=== PATIENT | female | born 1985 | race Caucasian/White ===

== ENCOUNTER 2018-09-05 16:43 | Outpatient (REF) | payer MEDICARE, MEDICAID, SELFPAY ==
[2018-09-05 21:43] LABS: HCG Quant, Pregnancy < 1 mIU/mL (1-3)
[2018-09-07 12:43] LABS: Chlamydia Result Negative; GC Result Negative; Specimen Description URINE
== END 2018-09-05 17:03 ==
LOC: NCHCN 16:43
PROVIDERS: PCP Family Medicine; Visit Provider Registered Nurse
DX: N92.0 Excessive and frequent menstruation with regular cycle (principal); R10.2 Pelvic and perineal pain; N93.9 Abnormal uterine and vaginal bleeding, unspecified; Z11.3 Encounter for screening for infections with a predominantly sexual mode of transmission
CPT/HCPCS: 87491; 87591; 84702

== ENCOUNTER 2019-05-27 15:26 | Outpatient (REF) | payer MEDICARE, MEDICAID, SELFPAY ==
[2019-05-27 21:17] LABS: ALT 37 U/L (12-78); AST 44 U/L (15-37); Albumin 3.7 g/dL (3.4-5.0); Alkaline Phosphatase 50 U/L (46-116); Anion Gap 10.9 mmol/L (3-11); BUN 9 mg/dL (7-18); Bilirubin, Total 0.3 mg/dL (0.2-1.0); CO2 27.1 mmol/L (21.0-32.0); CREATININE 0.64 mg/dL (0.55-1.02); Calcium 8.8 mg/dL (8.5-10.1); Chloride 103 mmol/L (98-107); Glucose 166 mg/dL (70-100); Potassium 4.2 mmol/L (3.5-5.1); Sodium 141 mmol/L (136-145); Total Protein 7.2 g/dL (6.4-8.2)
[2019-05-27 21:35] LABS: COMMENT (LAB VIEW ONLY) 231.15 mg/dL; Microalb ug/mg Crea 6.7 ug/mg Cr
== END 2019-05-27 15:46 ==
LOC: NCHCN 15:26
PROVIDERS: PCP Family Medicine; Visit Provider Registered Nurse
DX: E11.9 Type 2 diabetes mellitus without complications (principal); F31.9 Bipolar disorder, unspecified
CPT/HCPCS: 80053; 82043; 82570

== ENCOUNTER 2023-02-14 15:13 | Outpatient (REF) | payer MEDICARE, MEDICAID, SELFPAY ==
[2023-02-13 22:39] LABS: ALT 84 U/L (14-59); AST 47 U/L (15-37); Alkaline Phosphatase 62 U/L (46-116); Anion Gap 7.4 mmol/L (3-11); BUN 15 mg/dL (7-18); Bilirubin, Total 0.4 mg/dL (0.2-1.0); CO2 29.6 mmol/L (21.0-32.0); CREATININE 0.8 mg/dL (0.55-1.02); Calcium 9.5 mg/dL (8.5-10.1); Chloride 101 mmol/L (98-107); Cholesterol 233 mg/dL (<200); Estimated GFR 96.66 (mL/min/1.73m2); Glucose 191 mg/dL (74-106); HDL Cholesterol 42 mg/dL (40-60); Potassium 3.9 mmol/L (3.5-5.1); Sodium 138 mmol/L (136-145); Total Protein 7.9 g/dL (6.4-8.2); Triglyceride 452 mg/dL (<150)
[2023-02-13 22:41] LABS: COMMENT (LAB VIEW ONLY) 273.01 mg/dL; Microalb ug/mg Crea 9.2 ug/mg Cr
[2023-02-13 22:49] LABS: LDL CHOLESTEROL 127 mg/dL (<100)
== END 2023-02-14 15:14 | disposition home or self-care (01) ==
LOC: NCHCN 15:13
PROVIDERS: PCP Family Medicine; Visit Provider Nurse Practitioner Family
DX: E11.9 Type 2 diabetes mellitus without complications (principal); E66.9 Obesity, unspecified
CPT/HCPCS: 80053; 80061; 83721; 82043; 82570

== ENCOUNTER 2023-06-23 11:48 | Outpatient (REF) | payer MEDICARE, MEDICAID, SELFPAY ==
[2023-06-23 21:22] LABS: Anion Gap 11.6 mmol/L (3-11); BUN 11 mg/dL (7-18); CO2 25.4 mmol/L (21.0-32.0); CREATININE 0.9 mg/dL (0.55-1.02); Calcium 9.3 mg/dL (8.5-10.1); Chloride 101 mmol/L (98-107); Estimated GFR 83.92 (mL/min/1.73m2); Glucose 227 mg/dL (74-106); Potassium 3.5 mmol/L (3.5-5.1); Sodium 138 mmol/L (136-145)
== END 2023-06-23 11:49 | disposition home or self-care (01) ==
LOC: NCHCN 11:48
PROVIDERS: PCP Family Medicine; Visit Provider Nurse Practitioner Family
DX: E11.9 Type 2 diabetes mellitus without complications (principal); I10 Essential (primary) hypertension
CPT/HCPCS: 80048

== ENCOUNTER 2024-02-20 10:04 | Outpatient (REF) | payer MEDICARE, MEDICAID, SELFPAY ==
[2024-02-20 14:59] LABS: Hemoglobin A1C 5.9 % (<5.7)
[2024-02-20 15:55] LABS: COMMENT (LAB VIEW ONLY) 435.87 mg/dL; Microalb ug/mg Crea 7.2 ug/mg Cr
== END 2024-02-20 10:05 | disposition home or self-care (01) ==
LOC: NCHCN 10:04
PROVIDERS: PCP Family Medicine; Visit Provider Nurse Practitioner Family
DX: I10 Essential (primary) hypertension (principal)
CPT/HCPCS: 82043; 82570; 83036

== ENCOUNTER 2024-08-20 16:02 | Outpatient (REF) | payer MEDICARE, MEDICAID, SELFPAY ==
[2024-08-20 15:40] LABS: ALT 32 U/L (14-59); AST 21 U/L (15-37); Albumin 3.4 g/dL (3.4-5.0); Alkaline Phosphatase 60 U/L (46-116); BUN 12 mg/dL (7-18); Bilirubin, Total 0.36 mg/dL (0.2-1.0); CREATININE 0.8 mg/dL (0.55-1.02); Calculated LDL 55 mg/dL (<100); Chloride 107 mmol/L (98-107); Cholesterol 146 mg/dL (<200); Estimated GFR 96.06 (mL/min/1.73m2); Glucose 139 mg/dL (74-106); HDL Cholesterol 51 mg/dL (40-60); Potassium 4.2 mmol/L (3.5-5.1); Sodium 144 mmol/L (136-145); Total Protein 6.9 g/dL (6.4-8.2); Triglyceride 200 mg/dL (<150)
--- OUTSIDE RECORDS SUMMARY | 2024-08-20 16:04 | XMS_ITS ---
Author Organization Unknown Address [address] [place] [address] [phone] Phone Care Team Providers Care Derrick Barge Operator Name Role Phone JNAETTE Guo Attending Unavailable FABI Heath Primary Unavailable Social History Type Status Start Date End Date Code Code Syst em Smoking History Never smoker (Never Smoked) 588153023 SNOMED CT Sex Female Medications Medication Start Date End Date Route Frequency Dose Code Code System Medication Instructions Home Meds OxyCONTIN 20MG Oral Tablet, Extended Release 01/18/2019 Unknown ORAL TWICE A DAY 20 MILLIGRAMS 6310484 RxNorm TAKE 20 MILLIGRAMS ORAL TWICE A DAY Gabapentin 600MG Oral Tablet 11/08/2021 Unknown TWICE A DAY 2 TABLET 681892 RxNorm 2 TABLET TWICE A DAY HYDROcodone bitartrate-gideon taminophen 5MG-325MG Oral Tablet 11/08/2021 Unknown TWICE A DAY 1 TABLET 185123 RxNorm 1 TABLET TWICE A DAY Metoprolol Succinate 25MG Oral Tablet, Extended Release 11/08/2021 Unknown TWICE A DAY 0.5 TABLET 763889 RxNorm 0.5 TABLET TWICE A DAY Tresiba FlexTouch Pen 100U/1ML Subcutaneous Solution 11/08/2021 Unknown DAILY 90 Unit(s) 5141518 RxNorm 90 Unit(s ) DAILY lamoTRIgine 100MG Oral Tablet 11/08/2021 Unknown DAILY 2 TABLET 292443 RxNorm 2 TABLET DAILY metFORMIN HCl 1000MG Oral Tablet 11/08/2021 Unknown ORAL TWICE A DAY 1000 411487 RxNorm TAKE 1000 ORAL TWICE A DAY rOPINIRole HCl 0.25MG Oral Tablet 11/08/2021 Unknown BEDTIME 2 TABLET 828937 RxNorm 2 TABLET BEDTIME Bactrim DS 800MG-160MG Oral Tablet 02/26/2023 3 ORAL TWICE A DAY 1 TABLET 577194 RxNorm TAKE 1 TABLET ORAL TWICE A DAY Assessment You had the following problems:COVID-19 PNEUMONIATYPE 2 DIABETESBIPOLAR DISORDERCHRONIC PAIN SYNDROMERESPIRATORY FAILURE WITH HYPOXIA Hospital Discharge Instructions Should you have any questions prior to discharge, please contact a member of your healthcare team. If you have left the hospital and have any questions, please contact your primary care physician. Reason For Referral No Data Found Problems Problem Start Date Resolved Date Status Code Code System COVID-19 PNEUMONIA active [id number] 0539719 SNOMED-CT TYPE 2 DIABETES active 42717903 SNOM ED-CT BIPOLAR DISORDER active 22758512 SNO MED-CT CHRONIC PAIN SYNDROME active 768437375 SNOMED-CT RESPIRATORY FAILURE WITH HYPOXIA active 755266952 SNOMED-CT DIABETES 11/05/2021 resolved 25066133 SNOMED-CT DIABETES WO COMP TYPE II UNSPEC 11/05/2021 resolved SNOMED-CT ACUTE APPENDICITIS NOS 11/05/2021 resolved SNOMED-CT Allergies and Adverse Reactions Allergy Substance Reaction Severity Start Date Concern Status Co de Code System No Known Allergies Active 523274271 SNO MED-CT Plan of Treatment US RENAL 07/28/2022 CT ABDOMEN/PELVIS W/ CONTRAST 1 Encounters Encounter Diagnosis Start Date Code Code Sys tem COVID-19 11/05/2021 SNOMED-CT Personal Care Team Section Performer Name Performer Role Active Date Inactive Da doron
--- OUTSIDE RECORDS SUMMARY | 2024-08-20 16:05 | XMS_ITS ---
Author Organization Unknown Address [address] [place] [address] [phone] Phone Care Team Providers Care Machinist Mechanic Name Role Phone AURELIANO KEATING Registered Nurse Unavailable Unavailable Xwatchlist Unavailable JANETTE Guo Attending Unavailable MARSHA Heath Primary Unavailable UNLISTED PROVIDER - REQUESTED Xhandoff Un available Results GLUCOSE FINGER/HEEL CAPILLAR Y - Collect Date/Time: 11/08/2021 12:10 [facility] ID: [id number] [address] [place], [place], [phone] LOINC: 96191-0 Test Value Unit Reference Range Code Code System Flag GLUCOSE CAP 145 mg/dL L=70 H=116 H GLUCOSE FINGER/HEEL CAPILLAR Y - Collect Date/Time: 11/08/2021 08:23 [facility] ID: [id number] [address] [place] [address], [phone] LOINC: 47280-1 Test Value Unit Reference Range Code Code System Flag GLUCOSE CAP 184 mg/dL L=70 H=116 H GLUCOSE FINGER/HEEL CAPILLAR Y - Collect Date/Time: 11/07/2021 20:23 [facility] ID: [id number] [address] [place] [address], [phone] LOINC: 90721-1 Test Value Unit Reference Range Code Code System Flag GLUCOSE CAP 134 mg/dL L=70 H=116 H GLUCOSE FINGER/HEEL CAPILLAR Y - Collect Date/Time: 11/07/2021 17:01 [facility] ID: [id number] [address] [place] [address], [phone] LOINC: 74186-2 Test Value Unit Reference Range Code Code System Flag GLUCOSE CAP 144 mg/dL L=70 H=116 H GLUCOSE FINGER/HEEL CAPILLAR Y - Collect Date/Time: 11/07/2021 12:26 [facility] ID: [id number] [address] [place] [address], [phone] LOINC: 64961-2 Test Value Unit Reference Range Code Code System Flag GLUCOSE CAP 175 mg/dL L=70 H=116 H GLUCOSE FINGER/HEEL CAPILLAR Y - Collect Date/Time: 11/07/2021 09:03 [facility] ID: [id number] [address] [place] [address], [phone] LOINC: 35965-4 Test Value Unit Reference Range Code Code System Flag GLUCOSE CAP 190 mg/dL L=70 H=116 H C REACTIVE PROTEIN HIGH SENS ITIVITY* - Collect Date/Time: 11/07/2021 06:40 [facility] ID: [id number] [address] [place] [address], [address] LOINC: 10319-1 Test Value Unit Reference Range Code Code System Flag CRP-HIGH SENS. 112.65 mg/L L=0.00 H=3.00 43880-7 LOINC H CRP-HIGH SENS 11.27 mg/dL L=0.00 H=0.30 71967-7 LOINC H BASIC METABOLIC PANEL (BMP) - Collect Date/Time: 11/07/2021 06:40 [facility] ID: [id number] [address] [place] [address], [address] LOINC: 29510-2 Test Value Unit Reference Range Code Code System Flag GLUCOSE 253 mg/dL L=70 H=116 2345-7 LOINC H BUN 13 mg/dL L=6 H=25 3094-0 LOINC CREATININE 0.64 mg/dL L=0.51 H=0.95 2160-0 [facility] SODIUM SERUM 135 mmol/L L=136 H=145 2951-2 [facility] L POTASSIUM SERUM 3.7 mmol/L L=3.4 H=5.2 2823-3 [facility] CHLORIDE SERUM 99 mmol/L L=96 H=110 2075-0 [facility] CARBON DIOXIDE (CO2) 29 mmol/L L=22 H=34 2028-9 [facility] ANION GAP 7.4 mmol/L 32920-2 [facility] CALCIUM SERUM 8.2 mg/dL L=8.2 H=10.2 38065-4 [facility] AGE 36 years eGFR (non-Afr.Amer.) 105 mL/min 34259-0 [facility] eGFR (Afr-Colombian) > 120 mL/min 39005-2 [facility] GLUCOSE FINGER/HEEL CAPILLAR Y - Collect Date/Time: 11/06/2021 20:50 [facility] ID: [id number] [address] [place] [address], [phone] LOINC: 91578-4 Test Value Unit Reference Range Code Code System Flag GLUCOSE CAP 112 mg/dL L=70 H=116 GLUCOSE FINGER/HEEL CAPILLAR Y - Collect Date/Time: 11/06/2021 16:57 [facility] ID: [id number] [address] [place] [address], [phone] LOINC: 89863-9 Test Value Unit Reference Range Code Code System Flag GLUCOSE CAP 151 mg/dL L=70 H=116 H GLUCOSE FINGER/HEEL CAPILLAR Y - Collect Date/Time: 11/06/2021 11:41 [facility] ID: [id number] [address] [place] [address], [id number] LOINC: 03057-9 Test Value Unit Reference Range Code Code System Flag GLUCOSE CAP 214 mg/dL L=70 H=116 H GLUCOSE FINGER/HEEL CAPILLAR Y - Collect Date/Time: 11/06/2021 07:45 [facility] ID: [id number] [address] [place] [address], [id number] LOINC: 58219-8 Test Value Unit Reference Range Code Code System Flag GLUCOSE CAP 258 mg/dL L=70 H=116 H C REACTIVE PROTEIN HIGH SENS ITIVITY* - Collect Date/Time: 11/05/2021 20:41 [facility] ID: [id number] [address] [place] [address], [id number] LOINC: 28328-2 Test Value Unit Reference Range Code Code System Flag CRP-HIGH SENS. 183.75 mg/L L=0.00 H=3.00 42606-8 LOINC H CRP-HIGH SENS 18.38 mg/dL L=0.00 H=0.30 69422-6 LOINC H CORRECTED CORRECTED D-DIMER - Collect Date/Time: 11/05/2021 20:41 [facility] ID: [id number] [address] [place] [address], [address] LOINC: 51848-6 Test Value Unit Reference Range Code Code System Flag D-DIMER 0.63 mg/L L=0.19 H=0.50 33503-9 LOINC H BASIC METABOLIC PANEL (BMP) - Collect Date/Time: 11/05/2021 20:41 [facility] ID: [id number] [address] [place] [address], [address] LOINC: 26816-0 Test Value Unit Reference Range Code Code System Flag GLUCOSE 208 mg/dL L=70 H=116 2345-7 LOINC H BUN 14 mg/dL L=6 H=25 3094-0 LOINC CREATININE 0.71 mg/dL L=0.51 H=0.95 2160-0 LOINC SODIUM SERUM 133 mmol/L L=136 H=145 2951-2 LOINC L POTASSIUM SERUM 3.3 mmol/L L=3.4 H=5.2 2823-3 LOINC L CHLORIDE SERUM 96 mmol/L L=96 H=110 2075-0 LOINC CARBON DIOXIDE (CO2) 28 mmol/L L=22 H=34 8-9 LOINC ANION GAP 9.0 mmol/L 15391-6 LOINC CALCIUM SERUM 8.4 mg/dL L=8.2 H=10.2 38251-8 LOINC AGE 36 years eGFR (non-Afr.Amer.) 93 mL/min 23673-6 LOINC eGFR (Afr-Colombian) 113 mL/min 58128-3 LOINC CBC W/ DIFFERENTIAL* - Colle ct Date/Time: 11/05/2021 20:41 [facility] ID: [id number] [address] [place], [place], [address] LOINC: 62702-8 Test Value Unit Reference Range Code Code System Flag WBC 5.70 th/cmm L=5.00 H=10.00 6690-2 LOINC NEUT % 77.6 % L=40.0 H=80.0 LYMPH % 16.1 % L=10.0 H=50.0 MONO % 5.6 % L=2.0 H=12.0 16857-5 LOINC EOS % 0.0 % L=0.0 H=8.0 BASO % 0.2 % L=0.0 H=3.0 IG % 0.5 % L=0.0 H=1.1 2514-8 LOINC NRBC % 0.0 % L=0.0 H=0.0 08941-3 LOINC NEUT abs count 4.4 th/cmm L=1.6 H=8.4 751-8 LOINC LYMPH abs count 0.9 th/cmm L=1.5 H=4.0 731-0 LOINC L MONO abs count 0.3 th/cmm L=0.2 H=1.0 742-7 LOINC EOS abs count 0.0 th/cmm L=0.0 H=0.5 711-2 LOINC BASO abs count 0.0 th/cmm L=0.0 H=0.2 704-7 LOINC IG abs count 0.0 th/cmm L=0.0 H=0.1 02707-0 LOINC NRBC abs count 0.0 mil/cmm L=0.0 H=0.0 88537-3 LOINC RBC 4.79 mil/cmm L=3.90 H=5.40 789-8 LOINC HEMOGLOBIN 13.8 gm/dL L=12.0 H=16.0 718-7 LOINC HEMATOCRIT 41 % L=37 H=47 4544-3 LOINC MCV 86 fL L=82 H=92 787-2 LOINC MCH 28.8 pg L=27.0 H=31.0 785-6 LOINC MCHC 33.3 % L=32.0 H=36.0 786-4 LOINC RDW-SD 45.1 fL L=39.0 H=49.0 788-0 LOINC PLATELET COUNT 163 th/cmm L=150 H=450 777-3 LOINC XR PORTABLE CHEST 1V* - Comp leted: 11/05/2021 21:46 LOINC: PORTABLE CHEST:Comparison is August 11. The lungs are not well inflated. The heart size is normal. There are patchy bilateral infiltrates, right greater than left. No effusion or pneumothorax is seen. IMPRESSION:Bilateral infiltrates, right greater than left apparently consistent with COVID pneumonia. Dictated by: CEO STEFFI AMADOR MD Transcribed by: MIGUEL 11/07/21/15:16 D Sunday, November 07, 2021 11:42:17 AM [id number] Electronically Reviewed and Signed By: STEFFI AMADOR MD 11/07/21 16:33 Copy for: [facility] HEALTH INFORMATION MGMT Social History Type Status Start Date End Date Code Code Syst em Smoking History Never smoker (Never Smoked) 909945573 SNOMED CT Sex Female Vital Signs Vital Sign Value Unit Baldwin Value Baldwin Unit Date/Time Recent/Initial? Code Code System Body Mass Index 44.53 kg/m2 11/08/2021 13:43 Most Recent 09762 -5 LOINC Body Mass Index 42.97 kg/m2 11/05/2021 20:12 Initial 49694 -5 LOINC Systolic Blood Pressure 122 mm[Hg] 11/07/2021 22:47 Most Recent 8480- 6 LOINC Diastolic Blood Pressure 82 mm[Hg] 11/07/2021 22:47 Most Recent 8462- 4 LOINC Systolic Blood Pressure 149 mm[Hg] 11/05/2021 20:12 Initial 8480- 6 LOINC Diastolic Blood Pressure 89 mm[Hg] 11/05/2021 20:12 Initial 8462- 4 LOINC Body Surface Area 2.09 m2 11/08/2021 13:43 Most Recent 3140- 1 LOINC Body Surface Area 2.06 m2 11/05/2021 20:12 Initial 3140- 1 LOINC Height 152.400 0 cm 60.00 in 11/08/2021 13:43 Most Recent 8302- 2 LOINC Height 152.400 0 cm 60.00 in 11/05/2021 20:12 Initial 8302- 2 LOINC O2 Saturation 93 % 2021 13:43 Most Recent 56731 -5 LOINC O2 Saturation 84 % 2021 20:12 Initial 91416 -5 LOINC Inhaled Oxygen Flow Rate 1.00 L/min 11/08/2021 13:00 Most Recent 3151- 8 LOINC Inhaled Oxygen Flow Rate 2.00 L/min 11/05/2021 22:06 Initial 3151- 8 LOINC Fraction of Inspired Oxygen 21 % 11/08/2021 13:43 Initial 3150- 0 LOINC Pulse 76.0 /min 11/08/2021 13:00 Most Recent 8867- 4 LOINC Pulse 117.0 /min 11/05/2021 20:12 Initial 8867- 4 LOINC Respiration 18 /min 11/08/19 22 08:44 Most Recent 9279- 1 LOINC Respiration 20 /min 11/05/19 22 20:12 Initial 9279- 1 LOINC Temperature 35.9 Angelic 96.6 F 11/07/19 22 22:47 Most Recent 8310- 5 LOINC Temperature 38.8 Angelic 101.8 F 11/05/19 22 20:12 Initial 8310- 5 LOINC Weight 103.42 kg 228.00 lbs 11/08/2021 13:43 Most Recent 65183 -7 INC Weight 99.79 kg 220.00 lbs 11/05/2021 20:12 Initial 80034 -7 [facility] Medications Medication Start Date End Date Route Frequency Dose Code Code System Medication Instructions Home Meds OxyCONTIN 20MG Oral Tablet, Extended Release 01/18/2019 Unknown ORAL TWICE A DAY 20 MILLIGRAMS 2012416 RxNorm TAKE 20 MILLIGRAMS ORAL TWICE A DAY Gabapentin 600MG Oral Tablet 11/08/2021 Unknown TWICE A DAY 2 TABLET 830796 RxNorm 2 TABLET TWICE A DAY HYDROcodone bitartrate-gideon taminophen 5MG-325MG Oral Tablet 11/08/2021 Unknown TWICE A DAY 1 TABLET 417458 RxNorm 1 TABLET TWICE A DAY Metoprolol Succinate 25MG Oral Tablet, Extended Release 11/08/2021 Unknown TWICE A DAY 0.5 TABLET 724374 RxNorm 0.5 TABLET TWICE A DAY Tresiba FlexTouch Pen 100U/1ML Subcutaneous Solution 11/08/2021 Unknown DAILY 90 Unit(s) 4923003 RxNorm 90 Unit(s ) DAILY lamoTRIgine 100MG Oral Tablet 11/08/2021 Unknown DAILY 2 TABLET 575097 RxNorm 2 TABLET DAILY metFORMIN HCl 1000MG Oral Tablet 11/08/2021 Unknown ORAL TWICE A DAY 1000 137229 RxNorm TAKE 1000 ORAL TWICE A DAY rOPINIRole HCl 0.25MG Oral Tablet 11/08/2021 Unknown BEDTIME 2 TABLET 219131 RxNorm 2 TABLET BEDTIME Bactrim DS 800MG-160MG Oral Tablet 02/26/2023 3 ORAL TWICE A DAY 1 TABLET 074623 RxNorm TAKE 1 TABLET ORAL TWICE A [...] physician. Reason For Referral No Data Found Procedures Procedure Name Date Status Code Code Syste m Introduce Remdesivir in [place] ph Vein, Perc, New Tech 5 11/05/2021 completed [id number] Introduction of Baricitinib into Mouth and Pharynx, External Approach, [place] [employer] 6 11/05/2021 completed [id number] REMOVAL OF GALLBLADDER completed 08101111 SN OMEDCT APPENDECTOMY completed 928424808 SNOMEDCT Problems Problem Start Date Resolved Date Status Code Code System COVID-19 PNEUMONIA active 48251693462 6652269 SNOMED-CT TYPE 2 DIABETES active 27665160 SNOM ED-CT BIPOLAR DISORDER active 66074424 SNO MED-CT CHRONIC PAIN SYNDROME active 928090882 SNOMED-CT RESPIRATORY FAILURE WITH HYPOXIA active 972968327 SNOMED-CT DIABETES 11/05/2021 resolved 76859437 SNOMED-CT DIABETES WO COMP TYPE II UNSPEC 11/05/2021 resolved SNOMED-CT ACUTE APPENDICITIS NOS 11/05/2021 resolved SNOMED-CT Allergies and Adverse Reactions Allergy Substance Reaction Severity Start Date Concern Status Co de Code System No Known Allergies Active 513672380 SNO MED-CT Plan of Treatment US RENAL 07/28/2022 CT ABDOMEN/PELVIS W/ CONTRAST Encounters Encounter Diagnosis Start Date Code Code Sys tem COVID-19 11/05/2021 SNOMED-CT Personal Care Team Section Performer Name Performer Role Active Date Inactive Da te History and Physical Notes Progress Notes
--- OUTSIDE RECORDS SUMMARY | 2024-08-20 16:05 | XMS_ITS ---
Author Organization Unknown Address [address] [place] [address] [phone] Phone Care Team Providers Care Forestry Technical Officer Name Role Phone CHERYL Colon Attending Unavailable Social History Type Status Start Date End Date Code Code Syst em Smoking History Never smoker (Never Smoked) 411503617 SNOMED CT Sex Female Medications Medication Start Date End Date Route Frequency Dose Code Code System Medication Instructions Home Meds OxyCONTIN 20MG Oral Tablet, Extended Release 01/18/2019 Unknown ORAL TWICE A DAY 20 MILLIGRAMS 9656030 RxNorm TAKE 20 MILLIGRAMS ORAL TWICE A DAY Gabapentin 600MG Oral Tablet 11/08/2021 Unknown TWICE A DAY 2 TABLET 198574 RxNorm 2 TABLET TWICE A DAY HYDROcodone bitartrate-gideon taminophen 5MG-325MG Oral Tablet 11/08/2021 Unknown TWICE A DAY 1 TABLET 994755 RxNorm 1 TABLET TWICE A DAY Metoprolol Succinate 25MG Oral Tablet, Extended Release 11/08/2021 Unknown TWICE A DAY 0.5 TABLET 108548 RxNorm 0.5 TABLET TWICE A DAY Tresiba FlexTouch Pen 100U/1ML Subcutaneous Solution 11/08/2021 Unknown DAILY 90 Unit(s) 3665143 RxNorm 90 Unit(s ) DAILY lamoTRIgine 100MG Oral Tablet 11/08/2021 Unknown DAILY 2 TABLET 875740 RxNorm 2 TABLET DAILY metFORMIN HCl 1000MG Oral Tablet 11/08/2021 Unknown ORAL TWICE A DAY 1000 922927 RxNorm TAKE 1000 ORAL TWICE A DAY rOPINIRole HCl 0.25MG Oral Tablet 11/08/2021 Unknown BEDTIME 2 TABLET 016755 RxNorm 2 TABLET BEDTIME Bactrim DS 800MG-160MG Oral Tablet 02/26/2023 3 ORAL TWICE A DAY 1 TABLET 506703 RxNorm TAKE 1 TABLET ORAL TWICE A [...] Status Code Code System COVID-19 PNEUMONIA active 93324658164 8871550 SNOMED-CT TYPE 2 DIABETES active 96875043 SNOM ED-CT BIPOLAR DISORDER active 51315757 SNO MED-CT CHRONIC PAIN SYNDROME active 597210686 SNOMED-CT RESPIRATORY FAILURE WITH HYPOXIA active 595736955 SNOMED-CT DIABETES 11/05/2021 resolved 88883824 SNOMED-CT DIABETES WO COMP TYPE II UNSPEC 11/05/2021 resolved SNOMED-CT ACUTE APPENDICITIS NOS 11/05/2021 resolved SNOMED-CT Allergies and Adverse Reactions Allergy Substance Reaction Severity Start Date Concern Status Co de Code System No Known Allergies Active 716239651 SNO MED-CT Plan of Treatment US RENAL 07/28/2022 CT ABDOMEN/PELVIS W/ CONTRAST 1 Encounters Encounter Diagnosis Start Date Code Code Sys tem COVID-19 11/05/2021 SNOMED-CT Personal Care Team Section Performer Name Performer Role Active Date Inactive Da doron
--- OUTSIDE RECORDS SUMMARY | 2024-08-20 16:06 | XMS_ITS ---
Author Organization Unknown Address [address] [place] [address] [phone] Phone Care Team Providers Care Marine Chronometer Assembler Name Role Phone FABI Heath Attending Unavailable Results URINALYSIS WITH MICRO AND RE FLEX CULTUR* - Collect Date/Time: 08/23/2022 08:52 [facility] ID: [id number] [address] [place] [address], [address] LOINC: 79442-9 Test Value Unit Reference Range Code Code System Flag COLLECTION MODE: CLEAN CATCH 35682-2 LOINC Color STRAW yellow 5778-6 LOINC Appearance CLEAR clear 5767-9 LOINC Glucose urine 500 negative mg/dl 71158-8 LOINC A Bilirubin NEGATIVE negative 5770-3 LOINC Ketones NEGATIVE negative mg/dl 2514-8 LOINC Spec gravity >=1.030 1.003 - 1.030 5811-5 LOINC pH urine 5.5 5.0 - 7.0 2756-5 LOINC Protein NEGATIVE negative mg/dl 86489-8 LOINC Urobilinogen 0.2 <or= 1 EU/dl 75827-3 LOINC Nitrite. NEGATIVE negative 5802-4 LOINC Blood NEGATIVE negative 5794-3 LOINC Leukocytes. NEGATIVE negative WBCs. none 0-5 / hpf RBCs none 0-5 / hpf Epith cells 10-25 0-5 / hpf 00143-6 LOINC Cell types squam+trans Crystals none none Bacteria none none Mucus none none Casts none none /lpf Other HEMOGLOBIN A1C* - Collect Da te/Time: 08/23/2022 08:52 [facility] ID: [id number] [address] [place], [place], [address] LOINC: 4548-4 Test Value Unit Reference Range Code Code System Flag Hgb A1c 9.8 % L=3.8 H=5.7 4548-4 LOINC H MEAN BLOOD GLUCOSE 240 mg/dL 99315-4 LOINC CBC W/ DIFFERENTIAL* - Colle ct Date/Time: 08/23/2022 08:52 [facility] ID: [id number] [address] [place], [place], [address] LOINC: 19767-9 Test Value Unit Reference Range Code Code System Flag WBC 9.31 th/cmm L=5.00 H=10.00 6690-2 LOINC NEUT % 53.2 % L=40.0 H=80.0 LYMPH % 38.1 % L=10.0 H=50.0 MONO % 5.9 % L=2.0 H=12.0 23858-2 LOINC EOS % 2.0 % L=0.0 H=8.0 BASO % 0.5 % L=0.0 H=3.0 IG % 0.3 % L=0.0 H=1.1 2514-8 LOINC NRBC % 0.0 % L=0.0 H=0.0 81600-2 LOINC NEUT abs count 4.9 th/cmm L=1.6 H=8.4 751-8 LOINC LYMPH abs count 3.6 th/cmm L=1.5 H=4.0 731-0 LOINC MONO abs count 0.6 th/cmm L=0.2 H=1.0 742-7 LOINC EOS abs count 0.2 th/cmm L=0.0 H=0.5 711-2 LOINC BASO abs count 0.1 th/cmm L=0.0 H=0.2 704-7 LOINC IG abs count 0.0 th/cmm L=0.0 H=0.1 22370-1 LOINC NRBC abs count 0.0 mil/cmm L=0.0 H=0.0 20944-4 LOINC RBC 4.44 mil/cmm L=3.90 H=5.40 789-8 LOINC HEMOGLOBIN 12.9 gm/dL L=12.0 H=16.0 718-7 LOINC HEMATOCRIT 38 % L=37 H=47 4544-3 LOINC MCV 87 fL L=82 H=92 787-2 LOINC MCH 29.1 pg L=27.0 H=31.0 785-6 LOINC MCHC 33.6 % L=32.0 H=36.0 786-4 LOINC RDW-SD 43.0 fL L=39.0 H=49.0 788-0 LOINC PLATELET COUNT 243 th/cmm L=150 H=450 777-3 LOINC COMPREHENSIVE METABOLIC PANE L (CMP) - Collect Date/Time: 08/23/2022 08:52 [facility] ID: [id number] [address] [place] [address], [address] LOINC: 12580-6 Test Value Unit Reference Range Code Code System Flag GLUCOSE 254 mg/dL L=70 H=116 2345-7 LOINC H BUN 22 mg/dL L=6 H=25 3094-0 LOINC CREATININE 0.77 mg/dL L=0.51 H=0.95 2160-0 LOINC SODIUM SERUM 134 mmol/L L=136 H=145 2951-2 LOINC L POTASSIUM SERUM 3.9 mmol/L L=3.4 H=5.2 2823-3 LOINC CHLORIDE SERUM 98 mmol/L L=96 H=110 2075-0 LOINC CARBON DIOXIDE (CO2) 29 mmol/L L=22 H=34 2028-9 LOINC ANION GAP 7.2 mmol/L 42134-6 LOINC CALCIUM SERUM 8.9 mg/dL L=8.2 H=10.2 60250-8 LOINC BILIRUBIN TOTAL 0.4 mg/dL L=0.0 H=1.3 1975-2 LOINC ALK. PHOS. 53 U/L L=46 H=116 6768-6 LOINC SGOT (AST) 31 U/L L=15 H=37 1920-8 LOINC SGPT (ALT) 71 U/L L=12 H=78 1742-6 LOINC TOTAL PROTEIN 7.1 gm/dL L=6.0 H=8.0 2885-2 [facility] ALBUMIN 3.5 gm/dL L=3.4 H=5.0 1751-7 [facility] AGE 37 years eGFR (non-Afr.Amer.) 84 mL/min 90538-0 [facility] eGFR (Afr-St Helenian) 102 mL/min 75879-1 [facility] Social History Type Status Start Date End Date Code Code Syst em Smoking History Never smoker (Never Smoked) [id number] SNOMED CT Sex Female Medications Medication Start Date End Date Route Frequency Dose Code Code System Medication Instructions Home Meds OxyCONTIN 20MG Oral Tablet, Extended Release 01/18/2019 Unknown ORAL TWICE A DAY 20 MILLIGRAMS [id number] RxNorm TAKE 20 MILLIGRAMS ORAL TWICE A DAY Gabapentin 600MG Oral Tablet 11/08/2021 Unknown TWICE A DAY 2 TABLET 229886 RxNorm 2 TABLET TWICE A DAY HYDROcodone bitartrate-gideon taminophen 5MG-325MG Oral Tablet 11/08/2021 Unknown TWICE A DAY 1 TABLET 751845 RxNorm 1 TABLET TWICE A DAY Metoprolol Succinate 25MG Oral Tablet, Extended Release 11/08/2021 Unknown TWICE A DAY 0.5 TABLET 064101 RxNorm 0.5 TABLET TWICE A DAY Tresiba FlexTouch Pen 100U/1ML Subcutaneous Solution 11/08/2021 Unknown DAILY 90 Unit(s) 3410558 RxNorm 90 Unit(s ) DAILY lamoTRIgine 100MG Oral Tablet 11/08/2021 Unknown DAILY 2 TABLET 009801 RxNorm 2 TABLET DAILY metFORMIN HCl 1000MG Oral Tablet 11/08/2021 Unknown ORAL TWICE A DAY 1000 299168 RxNorm TAKE 1000 ORAL TWICE A DAY rOPINIRole HCl 0.25MG Oral Tablet 11/08/2021 Unknown BEDTIME 2 TABLET 115940 RxNorm 2 TABLET BEDTIME Bactrim DS 800MG-160MG Oral Tablet 02/26/2023 3 ORAL TWICE A DAY 1 TABLET 939822 RxNorm TAKE 1 TABLET ORAL TWICE A [...] Status Code Code System COVID-19 PNEUMONIA active [id number] SNOMED-CT TYPE 2 DIABETES active 53459830 SNOM ED-CT BIPOLAR DISORDER active 07757618 SNO MED-CT CHRONIC PAIN SYNDROME active 351800799 SNOMED-CT RESPIRATORY FAILURE WITH HYPOXIA active 492605434 SNOMED-CT DIABETES 11/05/2021 resolved 70322924 SNOMED-CT DIABETES WO COMP TYPE II UNSPEC 11/05/2021 resolved SNOMED-CT ACUTE APPENDICITIS NOS 11/05/2021 resolved SNOMED-CT Allergies and Adverse Reactions Allergy Substance Reaction Severity Start Date Concern Status Co de Code System No Known Allergies Active 312131066 SNO MED-CT Plan of Treatment US RENAL 07/28/2022 CT ABDOMEN/PELVIS W/ CONTRAST Encounters Encounter Diagnosis Start Date Code Code Sys tem Dysuria 08/23/2022 [id number] SNOMED-CT Personal Care Team Section Performer Name Performer Role Active Date Inactive Da te
--- OUTSIDE RECORDS SUMMARY | 2024-08-20 16:06 | XMS_ITS ---
Author Organization Unknown Address [address] [place] [phone] Phone Care Team Providers Care Astronaut Mission Specialist Name Role Phone FABI Heath Attending Unavailable Results US RENAL COMPLETE - Complete d: 07/28/2022 09:59 LOINC: [facility] [place], [place] [address] PACS POLEYARD SUPERVISOR REPORT Patient Name: CHALINO CHIU MRN: Sex: : Age: [id number] F [id number] Account: StayType: Accession: Admit: [id number] O/P [id number] 07/28/2022 Ordered: Order ID: Ordering Provider: [id number] JESUS DUNLAP Completed: CompletedBy: Resulted: By: [id number] [facility] [id number] [facility] Study Description: US RENAL COMPLETE Reason for Study: DYSURIA,FLANKPAIN COMPARISON: Findings: The kidneys are normal in size and shape. There is no evidence of a renal mass, hydronephrosis, or nephrolithiasis. Urinary bladder is unremarkable in appearance with pre and post void estimated at 120 cc cc respectively. Ureteral jets were noted bilaterally. No evidence of abdominal aortic aneurysm. Impressions: egative renal ultrasound.] Report Digitally Signed by Chris Chan on 07/28/2022 10:02 AM EDT Social History Type Status Start Date End Date Code Code Syst em Smoking History Never smoker (Never Smoked) 790510896 SNOMED CT Sex Female Medications Medication Start Date End Date Route Frequency Dose Code Code System Medication Instructions Home Meds OxyCONTIN 20MG Oral Tablet, Extended Release 01/18/2019 Unknown ORAL TWICE A DAY 20 MILLIGRAMS 0473083 RxNorm TAKE 20 MILLIGRAMS ORAL TWICE A DAY Gabapentin 600MG Oral Tablet 11/08/2021 Unknown TWICE A DAY 2 TABLET 402568 RxNorm 2 TABLET TWICE A DAY HYDROcodone bitartrate-gideon taminophen 5MG-325MG Oral Tablet 11/08/2021 Unknown TWICE A DAY 1 TABLET 620654 RxNorm 1 TABLET TWICE A DAY Metoprolol Succinate 25MG Oral Tablet, Extended Release 11/08/2021 Unknown TWICE A DAY 0.5 TABLET 328358 RxNorm 0.5 TABLET TWICE A DAY Tresiba FlexTouch Pen 100U/1ML Subcutaneous Solution 11/08/2021 Unknown DAILY 90 Unit(s) 7999224 RxNorm 90 Unit(s ) DAILY lamoTRIgine 100MG Oral Tablet 11/08/2021 Unknown DAILY 2 TABLET 419952 RxNorm 2 TABLET DAILY metFORMIN HCl 1000MG Oral Tablet 11/08/2021 Unknown ORAL TWICE A DAY 1000 288327 RxNorm TAKE 1000 ORAL TWICE A DAY rOPINIRole HCl 0.25MG Oral Tablet 11/08/2021 Unknown BEDTIME 2 TABLET 720718 RxNorm 2 TABLET BEDTIME Bactrim DS 800MG-160MG Oral Tablet 02/26/2023 3 ORAL TWICE A DAY 1 TABLET 862820 RxNorm TAKE 1 TABLET ORAL TWICE A [...] Status Code Code System COVID-19 PNEUMONIA active 57273200405 9495037 SNOMED-CT TYPE 2 DIABETES active 00446934 SNOM ED-CT BIPOLAR DISORDER active 21260625 SNO MED-CT CHRONIC PAIN SYNDROME active 179854433 SNOMED-CT RESPIRATORY FAILURE WITH HYPOXIA active 662319576 SNOMED-CT DIABETES 11/05/2021 resolved 03680273 SNOMED-CT DIABETES WO COMP TYPE II UNSPEC 11/05/2021 resolved SNOMED-CT ACUTE APPENDICITIS NOS 11/05/2021 resolved SNOMED-CT Allergies and Adverse Reactions Allergy Substance Reaction Severity Start Date Concern Status Co de Code System No Known Allergies Active 275187594 SNO MED-CT Plan of Treatment US RENAL 07/28/2022 CT ABDOMEN/PELVIS W/ CONTRAST Encounters Encounter Diagnosis Start Date Code Code Sys tem Dysuria 07/28/2022 SNOMED-CT Personal Care Team Section Performer Name Performer Role Active Date Inactive Da te
--- OUTSIDE RECORDS SUMMARY | 2024-08-20 16:06 | XMS_ITS ---
Author Organization Unknown Address [address] [place] [phone] Phone Care Team Providers Care Mechanical Expert Name Role Phone DIAZ RING Registered Nurse Dale Islas Attending Unavailable [facility] Unavailable FABI Heath Primary Unavailable UNLISTED PROVIDER - REQUESTED Xhandoff Un available Results GRAM STAIN* - Collect Date/T batool: 02/26/2023 23:20 [facility] ID: [id number] [address] [place], [place], [id number] LOINC: 664-3 Test Value Unit Reference Range Code Code System Flag SOURCE- Other WBC s few [employer] No bacteria seen Social History Type Status Start Date End Date Code Code Syst em Smoking History Never smoker (Never Smoked) 255287929 SNOMED CT Sex Female Vital Signs Vital Sign Value Unit [place] Value [place] Unit Date/Time Recent/Initial? Code Code System Body Mass Index 23.78 kg/m2 02/26/2023 22:14 Initial 90022 -5 LOINC Systolic Blood Pressure 148 mm[Hg] 02/26/2023 23:32 Most Recent 8480- 6 LOINC Diastolic Blood Pressure 92 mm[Hg] 02/26/2023 23:32 Most Recent 8462- 4 LOINC Systolic Blood Pressure 163 mm[Hg] 02/26/2023 22:14 Initial 8480- 6 LOINC Diastolic Blood Pressure 109 mm[Hg] 02/26/2023 22:14 Initial 8462- 4 LOINC Body Surface Area 1.61 m2 02/26/2023 22:14 Initial 3140- 1 LOINC Height 157.480 0 cm 62.00 in 02/26/2023 22:14 Initial 8302- 2 LOINC O2 Saturation 96 % 2022 23:32 Most Recent 96496 -5 LOINC O2 Saturation 96 % 2022 22:14 Initial 92904 -5 LOINC Pulse 78.0 /min 02/26/2023 23:32 Most Recent 8867- 4 LOINC Pulse 88.0 /min 02/26/2023 22:14 Initial 8867- 4 LOINC Respiration 18 /min 02/27/20 23 23:32 Most Recent 9279- 1 LOINC Respiration 18 /min 02/27/20 22:14 Initial 9279- 1 LOINC Temperature 36.6 Angelic 97.9 F 02/27/20 23:32 Most Recent 8310- 5 LOINC Temperature 36.7 Angelic 98.1 F 02/27/20 22:14 Initial 8310- 5 LOINC Weight 58.97 kg 130.00 lbs 02/26/2023 22:14 Initial 43682 -7 LOINC Medications Medication Start Date End Date Route Frequency Dose Code Code System Medication Instructions Home Meds OxyCONTIN 20MG Oral Tablet, Extended Release 01/18/2019 Unknown ORAL TWICE A DAY 20 MILLIGRAMS 3452950 RxNorm TAKE 20 MILLIGRAMS ORAL TWICE A DAY Gabapentin 600MG Oral Tablet 11/08/2021 Unknown TWICE A DAY 2 TABLET 815029 RxNorm 2 TABLET TWICE A DAY HYDROcodone bitartrate-gideon taminophen 5MG-325MG Oral Tablet 11/08/2021 Unknown TWICE A DAY 1 TABLET 565442 RxNorm 1 TABLET TWICE A DAY Metoprolol Succinate 25MG Oral Tablet, Extended Release 11/08/2021 Unknown TWICE A DAY 0.5 TABLET 994317 RxNorm 0.5 TABLET TWICE A DAY Tresiba FlexTouch Pen 100U/1ML Subcutaneous Solution 11/08/2021 Unknown DAILY 90 Unit(s) 3409552 RxNorm 90 Unit(s ) DAILY lamoTRIgine 100MG Oral Tablet 11/08/2021 Unknown DAILY 2 TABLET 006263 RxNorm 2 TABLET DAILY metFORMIN HCl 1000MG Oral Tablet 11/08/2021 Unknown ORAL TWICE A DAY 1000 849259 RxNorm TAKE 1000 ORAL TWICE A DAY rOPINIRole HCl 0.25MG Oral Tablet 11/08/2021 Unknown BEDTIME 2 TABLET 514935 RxNorm 2 TABLET BEDTIME Bactrim DS 800MG-160MG Oral Tablet 02/26/2023 3 ORAL TWICE A DAY 1 TABLET 810569 RxNorm TAKE 1 TABLET ORAL TWICE A [...] Status Code Code System COVID-19 PNEUMONIA active 29567066574 5193285 SNOMED-CT TYPE 2 DIABETES active 90342257 SNOM ED-CT BIPOLAR DISORDER active 55730383 SNO MED-CT CHRONIC PAIN SYNDROME active 022595837 SNOMED-CT RESPIRATORY FAILURE WITH HYPOXIA active 711480148 SNOMED-CT DIABETES 11/05/2021 resolved 73446039 SNOMED-CT DIABETES WO COMP TYPE II UNSPEC 11/05/2021 resolved SNOMED-CT ACUTE APPENDICITIS NOS 11/05/2021 resolved SNOMED-CT Allergies and Adverse Reactions Allergy Substance Reaction Severity Start Date Concern Status Co de Code System No Known Allergies Active 287189940 SNO MED-CT Plan of Treatment US RENAL 07/28/2022 CT ABDOMEN/PELVIS W/ CONTRAST 1 Encounters Encounter Diagnosis Start Date Code Code Sys tem Cellulitis and abscess of mouth 02/26/2023 SNOMED-CT Personal Care Team Section Performer Name Performer Role Active Date Inactive Da te
--- OUTSIDE RECORDS SUMMARY | 2024-08-20 16:07 | XMS_ITS | Encounter Summary ---
Author Organization [facility] Address [address] [place] [address] Care Team Providers Care Clinical Pharmacy Coordinator Name Role Phone Sharif Rizvi MD Primary Care Provider [phone] Reason for Visit * Reason Onset Date Comments Other 01/08/2021 Encounter Details Date Type Department Care Team (Late st Contact Info) Description 01/08/2021 Telephone [facility] OBGYN Services - [address] [id number] Inez Molina MD [address] [facility], [address] [place] [address] Other Social History Tobacco Use Types Packs/Day Years Used Date Smoking Tobacco: Never Smokeless Tobacco: Never Alcohol Use Standard Drinks/Week Comments No 0 (1 standard drink = 0.6 oz pur e alcohol) Interpersonal Safety Answer Date Record ed Physically Hurt Never 05/31/2020 Verbally Threaten Not on file 05/31/2020 Sex and Gender Information Value Date Recorded Sex Assigned at Not on file Gender Identity Not on file Sexual Orientation Not on file documented as of this encounter Miscellaneous Notes * Telephone Encounter - Genia Klein RN - 01/11/[address] Molina: She had her preconception MFM consult with Dr. Mckeon who made specific recommendations for her diabetes care. I think she should check in with MFM about this. I have physician/allergy/immunology with Ozempic, but my medication reference says to avoid by using effective contraception while taking this and for 2 months after stopping so it is not ideal for her current goals! Called and left generic VM for Claudia, advised she can call back to discuss. When she calls back, would advise her that we do not recommend she take Ozempic when trying to conceive, and her PCP can review her MFM visit note for recommendations of diabetes medication when trying to conceive. * Telephone Encounter - Nakia Lewis - 01/08/2021 1414 EST PT called to find out if she could have Dr. Molina review this medication being prescribed by her PCP. OZEMPIC Her Doctor wants to be sure this is okay for her to take as it pertains to fertility treatments. It is for diabetes. Please call back at #[phone] documented in this encounter Plan of Treatment Upcoming Encounters Date Type Department Care Team (Late st Contact Info) Description 09/19/2024 14:00 EST Initial consult [facility] Interventional Pain [address] [place] [address] Brigitte Camilo PA-C 62 [facility] [address] [place] [address] documented as of this encounter Visit Diagnoses Not on filedocumented in this encounter Care Teams Clinical Pharmacy Coordinator Relationship Specialty Start Date End Date Sharif Rizvi MD [address] [facility] 6 [place] [address] PCP - General 02/08/11 documented as of this encounter
--- OUTSIDE RECORDS SUMMARY | 2024-08-20 16:07 | XMS_ITS | Encounter Summary ---
Author Organization [facility] Address [address] [place] [address] Care Team Providers Care Food And Drink Factory Workers Name Role Phone Sharif Rizvi MD Primary Care Provider [phone] Encounter Details Date Type Department Care Team (Late st Contact Info) Description 03/17/2021 Lab Requisition [facility] Pathology & Laboratory Medicine - [facility] [address] [place] [address] Outr Resulting Lab, Provider Social History Tobacco Use Types Packs/Day Years [...] on file documented as of this encounter Plan of Treatment Upcoming Encounters Date Type Department Care Team (Late st Contact Info) Description 09/19/2024 14:00 EST Initial consult [facility] Interventional Pain [address] [place] [address] Brigitte Camilo PA-C 62 [facility] [address] [place] [address] documented as of this encounter Procedures Procedure Name Priority Date/Time Associated Diagnosis Comments VITAMIN D (25,OH) Routine 03/17/2021 10: 40 EDT documented in this encounter Results * (ABNORMAL) VITAMIN D (25,OH) (03/17/2021 10:40 EDT) 25OH Vitamin D Tot 26.8(L) 30.0 - 100.0 ng/mL 03/18/2021 10:16 EDT [facility] Comment: Vitamin D 25,OH Interpretive Ranges: Deficiency: ??<10.0 ng/mL Insufficiency: ??10.0 - 30.0 ng/mL Sufficiency: ??30.0 - 100.0 ng/mL Toxicity: ??>100.0 ng/mL Blood VENOUS BLOOD / Unknown 03/17/2021 10:40 EDT 03/17/2021 21:28 EDT Provider Outr Resulting Lab CHEMISTRY & BLOOD GAS ORDERABLES [facility] [address] [place] [address] documented in this encounter Visit Diagnoses Not on filedocumented in this encounter Care Teams Food And Drink Factory Workers Relationship Specialty Start Date End Date Sharif Rizvi MD [address] [address] PCP - General 02/08/11 documented as of this encounter
--- OUTSIDE RECORDS SUMMARY | 2024-08-20 16:07 | XMS_ITS | Encounter Summary ---
Author Organization [facility] Address [address] [place] [address] Care Team Providers Care Boxing And Pressing Supervisor Name Role Phone Sharif Rizvi MD Primary Care Provider [phone] Encounter Details Date Type Department Care Team (Late st Contact Info) Description 04/26/[address] [facility] Endoscopy [address] [place] [address] David Nava MD [facility] [address] [place] [address] Social History Tobacco Use Types Packs/Day Years [...] Info) Description 09/19/2024 14:[address] [facility] Interventional Pain [address] [place] [address] Brigitte Camilo PA-C 62 [facility] [address] [place] [address] documented as of this encounter Visit Diagnoses Not on filedocumented in this encounter Care Teams Boxing And Pressing Supervisor Relationship Specialty Start Date End Date Sharif Rizvi MD [address] [place] [address] PCP - General 02/08/11 documented as of this encounter
--- OUTSIDE RECORDS SUMMARY | 2024-08-20 16:07 | XMS_ITS | Encounter Summary ---
Author Organization [facility] Address [address] [place] [address] Care Team Providers Care Coin Rolling Machine Operator Name Role Phone Sharif Rizvi MD Primary Care Provider [phone] Reason for Visit * Reason Onset Date Comments Advice Only 06/18/2020 Encounter Details Date Type Department Care Team (Late st Contact Info) Description 06/18/2020 Telephone [facility] OBGYN Services - [facility] [place] [facility] [address] [place] [address] Inez Molina MD [address] [facility], [address] [place] [address] Advice Only Social History Tobacco Use Types Packs/Day Years [...] encounter Miscellaneous Notes * Telephone Encounter - Sil Carbone RN - 06/18/2020 1635 EDT Returned call to Claudia, who wants to get A1C checked prior to [facility]. Order placed and faxed to [facility]. Pt will follow up with her PCP for diabetes management. * Telephone Encounter - Trudy Prajapati - 06/18/2020 1551 EDT Pt is calling to ask about blood labs request that were suppose to be sent to [facility] from Dr. Molina Pt can be reached at [phone] documented in this encounter Plan of Treatment Upcoming Encounters Date Type Department Care Team (Late st Contact Info) Description 09/19/2024 14:00 EST Initial consult [facility] Interventional Pain [address] [place], [place] [phone] Brigitte Camilo PA-C 62 [facility] [address] [place] [address] documented as of this encounter Visit Diagnoses Diagnosis Type 2 diabetes mellitus without complication, with long-term current use of insulin ([facility])- Primary documented in this encounter Care Teams Coin Rolling Machine Operator Relationship Specialty Start Date End Date Sharif Rizvi MD [address] [address] PCP - General 02/08/11 documented as of this encounter
--- OUTSIDE RECORDS SUMMARY | 2024-08-20 16:07 | XMS_ITS | Encounter Summary ---
Author Organization [facility] Address [address] [place] [address] Care Team Providers Care Calculation Clerk Name Role Phone Sharif Rizvi MD Primary Care Provider [phone] Reason for Visit * Reason Onset Date Comments Advice Only 05/20/2020 Encounter Details Date Type Department Care Team (Late st Contact Info) Description 05/20/2020 Telephone [facility] OBGYN Services - [facility] [address] [place] [address] Arnaud Mckeon MD [address] [facility], [address] [place] [address] Advice Only Social History Tobacco Use Types Packs/Day Years Used Date Smoking Tobacco: Never Smokeless Tobacco: Never Alcohol Use Standard Drinks/Week Comments No 0 (1 standard drink = 0.6 oz pur e alcohol) Sex and Gender Information Value Date Recorded Sex Assigned at Not on file Gender Identity Not on file Sexual Orientation Not on file documented as of this encounter Miscellaneous Notes * Telephone Encounter - Trudy Prajapati - 05/20/2020 4320 EDT After zoom visit with Mike pt thought she was getting rx. Pt received the folic acid rx but wanted to clarify that she was getting the as well. Preferred Pharmacy: [id number] - [place] - [address] Pt can be reached at [phone] documented in this encounter Plan of Treatment Upcoming Encounters Date Type Department Care Team (Late st Contact Info) Description 09/19/2024 14:00 EST Initial consult [facility] Interventional Pain [address] [place] [address] Brigitte Camilo PA-C 62 [facility] [address] [place] [address] documented as of this encounter Visit Diagnoses Not on filedocumented in this encounter Care Teams Calculation Clerk Relationship Specialty Start Date End Date Sharif Rizvi MD [address] [facility] 6 [place] [address] PCP - General 02/08/11 documented as of this encounter
--- OUTSIDE RECORDS SUMMARY | 2024-08-20 16:07 | XMS_ITS | Encounter Summary ---
Author Organization [facility] Address [address] [place] [address] Care Team Providers Care Air Conditioning Manager Name Role Phone Sharif Rizvi MD Primary Care Provider [phone] Encounter Details Date Type Department Care Team (Late st Contact Info) Description 04/01/2020 Lab Requisition [facility] Pathology & Laboratory Medicine - [address] [address] Outr Resulting Lab, Provider Social History Tobacco [...] Info) Description 09/19/2024 14:00 EST Initial consult [facility] Interventional Pain [address] [place] [address] Brigitte Camilo PA-C 62 [facility] [address] [place] [address] documented as of this encounter Procedures Procedure Name Priority Date/Time Associated Diagnosis Comments MEASLES IGG AB Routine 04/01/2020 11:37 EDT documented in this encounter Results * MEASLES IGG AB (04/01/2020 11:37 EDT) Measles IgG Ab Positive See Note 04/02/2020 11:12 EDT [facility] Comment:Presence of detectab le measles virus IgG antibodies. Blood VENOUS BLOOD / Unknown 04/01/2020 11:37 EDT 04/01/2020 21:58 EDT Provider Outr Resulting Lab IMMUNOLOGY A ND SEROLOGY ORDERABLES [facility] [address] [place] [address] documented in this encounter Visit Diagnoses Not on filedocumented in this encounter Care Teams Air Conditioning Manager Relationship Specialty Start Date End Date Sharif Rizvi MD [address] [facility] 6 [place] [address] PCP - General 02/08/11 documented as of this encounter
--- OUTSIDE RECORDS SUMMARY | 2024-08-20 16:07 | XMS_ITS | Encounter Summary ---
Author Organization [facility] Address [address] [place] [address] Care Team Providers Care Career Specialist Name Role Phone Sharif Rizvi MD Primary Care Provider [phone] Encounter Details Date Type Department Care Team (Late st Contact Info) Description 04/01/2020 Lab Requisition [facility] Pathology & Laboratory Medicine - [address] [phone] Outr Resulting Lab, Provider Social History Tobacco [...] Info) Description 09/19/2024 14:00 EST Initial consult [facility] Interventional Pain [address] [place] [address] Brigitte Camilo PA-C 62 [facility] [address] [place] [address] documented as of this encounter Procedures Procedure Name Priority Date/Time Associated Diagnosis Comments RUBELLA IGG ANTIBODY Routine 04/01/2020 11:37 EDT documented in this encounter Results * RUBELLA IGG ANTIBODY (04/01/2020 11:37 EDT) Rubella IgG Ab Negative See Note 04/02/2020 11:12 EDT [facility] Comment:Sample is considered negative for IgG antibodies to Rubella virus. A negative result presumes that immunity has not been acquired. If exposure to Rubella virus is suspected despite a negative finding, a second specimen should be collected and tested for Rubella IgG Ab one or two weeks later. Blood VENOUS BLOOD / Unknown 04/01/2020 11:37 EDT 04/01/2020 21:58 EDT Provider Outr Resulting Lab CHEMISTRY & BLOOD GAS ORDERABLES [facility] [address] [place] [address] documented in this encounter Visit Diagnoses Not on filedocumented in this encounter Care Teams Career Specialist Relationship Specialty Start Date End Date Sharif Rizvi MD [address] [place] [address] 6 [place] [address] PCP - General 02/08/11 documented as of this encounter
--- OUTSIDE RECORDS SUMMARY | 2024-08-20 16:07 | XMS_ITS | Encounter Summary ---
Author Organization [facility] Address [address] [place] [address] Care Team Providers Care Fast Food Crew Lead Name Role Phone Sharif Rizvi MD Primary Care Provider [phone] Reason for Visit * Reason Onset Date Comments Returning Call 10/15/2020 Encounter Details Date Type Department Care Team (Late st Contact Info) Description 10/15/2020 Telephone [facility] Obstetrics & Midwifery - [facility] [address] [place], [place] [phone] Arnaud Mckeon MD 111 [facility], [address] [place] [address] Returning Call Social History Tobacco Use Types Packs/Day Years [...] encounter Miscellaneous Notes * Telephone Encounter - Arnaud Mckeon MD - 10/15/2020 1139 EST Called to discuss her 24 hr urine results, but no answer. I asked her to call back. Arnaud Mckeon MD 10/15/2020 11:39 documented in this encounter Plan of Treatment Upcoming Encounters Date Type Department Care Team (Late st Contact Info) Description 09/19/2024 14:00 EST Initial consult [facility] Interventional Pain [address] [place] [address] Brigitte Camilo PA-C 62 [facility] [address] [place] [address] documented as of this encounter Visit Diagnoses Not on filedocumented in this encounter Care Teams Fast Food Crew Lead Relationship Specialty Start Date End Date Sharif Rizvi MD 4 [address] [facility] 6 [place] [address] PCP - General 02/08/11 documented as of this encounter
--- OUTSIDE RECORDS SUMMARY | 2024-08-20 16:07 | XMS_ITS | Encounter Summary ---
Author Organization [facility] Address [address] [place] [address] Care Team Providers Care Cement Finishing Supervisor Name Role Phone Sharif Rizvi MD Primary Care Provider [phone] Encounter Details Date Type Department Care Team (Late st Contact Info) Description 09/01/2022 Orders Only [facility] Obstetrics & Midwifery - [facility] [address] [place] [address] Ronda Sanchez RN Encounter for preconception consultation; Morbid obesity with BMI of 45.0-49.9, adult ([facility]); Type 2 diabetes mellitus without complication, with long-term current use of insulin ([facility]) Social History Tobacco Use Types Packs/Day Years [...] on file documented as of this encounter Ordered Prescriptions Prescription Sig Dispensed Refills Start Date End Da te folic acid (FOLVITE) 1 mg tabletIndications:Encoun ter for preconception consultation,Morbid obesity with BMI of 45.0-49.9, adult ([facility]),Type 2 diabetes mellitus without complication, with long-term current use of insulin ([facility]) Take 4 Tablets by mouth daily for 180 days. 360 Tablet 1 09/01/2022 02/28/2023 documented in this encounter Plan of Treatment Upcoming Encounters Date Type Department Care Team (Late st Contact Info) Description 09/19/2024 14:00 EST Initial consult [facility] Interventional Pain [address] [place], [place] [id number] Brigitte Camilo PA-C [address] [facility] [address] [place] [address] documented as of this encounter Visit Diagnoses Diagnosis Encounter for preconception consultation Other procreative management counseling and advice Morbid obesity with BMI of 45.0-49.9, adult ([facility]) Morbid obesity Type 2 diabetes mellitus without complication, with long-term current use of insulin ([facility]) documented in this encounter Discontinued Medications Medication Sig Discontinue Reason Start Date End Da te folic acid (FOLVITE) 1 mg tabletIndications:Encounte r for preconception consultation,Morbid obesity with BMI of 45.0-49.9, adult ([facility]),Type 2 diabetes mellitus without complication, with long-term current use of insulin ([facility]) Take 4 Tabs by mouth daily for 180 days. Reorder 12/25/2020 09/01/2022 documented as of this encounter Care Teams Cement Finishing Supervisor Relationship Specialty Start Date End Date Sharif Rizvi MD [address] [facility] [address] [place] [address] PCP - General 02/08/11 documented as of this encounter
--- OUTSIDE RECORDS SUMMARY | 2024-08-20 16:07 | XMS_ITS | Encounter Summary ---
Author Organization [facility] Address [address] [place] [address] Care Team Providers Care Offender Employment Specialist Name Role Phone Sharif Rizvi MD Primary Care Provider [phone] Encounter Details Date Type Department Care Team (Late st Contact Info) Description 05/12/2020 Lab Requisition [facility] Pathology & Laboratory Medicine - [address] [id number] Outr Resulting Lab, Provider Social History Tobacco [...] Info) Description 09/19/2024 14:00 EST Initial consult [facility] Interventional Pain [address] [place] [address] Brigitte Camilo PA-C [address] [facility] [address] [place] [address] documented as of this encounter Procedures Procedure Name Priority Date/Time Associated Diagnosis Comments ESTRADIOL, ADULTS Routine 05/12/2020 12: 25 EDT [facility] Routine 05/12/2020 12:25 EDT documented in this encounter Results * ESTRADIOL, ADULTS (05/12/2020 12:25 EDT) Estradiol 22 See Note pg/mL 05/12/2020 22:31 EDT [facility] Comment: NOTE: FEMALE REFERENCE RANGES: MENSTRUATING ? By cycle day relative to LH peak Follicular ?(-12 to -4 days) ??20-144 pg/mL Midcycle ?(-3 to +2 days) ?? 64-357 pg/mL Luteal ?(+4 t0 +12 days) ??56-214 pg/mL POSTMENOPAUSAL ?<33 pg/mL *Cross reactivity with Fulvestrant could lead to a falsely elevated estradiol result in patients treated with this drug. Blood VENOUS BLOOD / Unknown 05/12/2020 12:25 EDT 05/12/2020 21:54 EDT Provider Outr Resulting Lab CHEMISTRY & BLOOD GAS ORDERABLES Performing Organization Address City/State/[facility] Co de Phone Number [facility] [address] [place] [address] * FSH (05/12/2020 12:25 EDT) FSH 6.8 See Note mIU/mL 05/13/2020 9:52 EDT [facility] Blood VENOUS BLOOD / Unknown 05/12/2020 12:25 EDT 05/12/2020 21:54 EDT Narrative [facility] - 05/13/2020 9:52 EDT NOTE: Female FSH Reference Ranges (>= 13 Menstruating): PHYSIOLOGICAL STATUS ? REFERENCE RANGE ? Follicular (-12 to -4 days): ?? 2.5 - 10.2 mIU/mL Midcycle (-3 to +2 days): ?3.4 - 33.4 mIU/mL Luteal (+4 to +12 days): ? 1.5 - 9.1 mIU/mL Postmenopausal: ?23.0 - 116.3 mIU/mL Reference Ranges for female patients <13 years old have not been established. Provider Outr Resulting Lab CHEMISTRY & BLOOD GAS ORDERABLES [facility] [address] [place] [address] documented in this encounter Visit Diagnoses Not on filedocumented in this encounter Care Teams Offender Employment Specialist Relationship Specialty Start Date End Date Sharif Rizvi MD [address] [address] PCP - General 02/08/11 documented as of this encounter
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
--- OUTSIDE RECORDS SUMMARY | 2024-08-20 16:07 | XMS_ITS | Encounter Summary ---
Author Organization [facility] Address [address] [place] [address] Care Team Providers Care Small Order Cutter Name Role Phone Sharif Rizvi MD Primary Care Provider [phone] Reason for Visit * Reason Comments Medications Refill Encounter Details Date Type Department Care Team (Late st Contact Info) Description 04/20/[address] [facility] Obstetrics & Midwifery - [address] [id number] Arnuad Mckeon MD [address] [place] [address], [facility] [address] [place] [address] Medications Refill Social History Tobacco Use Types Packs/Day Years [...] Description 09/19/2024 14:[address] [facility] Interventional Pain [address] [place] [address] Brigitte Camilo PA-C [address] [address] documented as of this encounter Visit Diagnoses Not on filedocumented in this encounter Care Teams Small Order Cutter Relationship Specialty Start Date End Date Sharif Rizvi MD [address] [place] [id number] PCP - General 02/08/11 documented as of this encounter
--- OUTSIDE RECORDS SUMMARY | 2024-08-20 16:07 | XMS_ITS | Encounter Summary ---
Author Organization [facility] Address [address] [place] [address] Care Team Providers Care Classification Counselor Name Role Phone Sharif Rizvi MD Primary Care Provider [phone] Encounter Details Date Type Department Care Team (Late st Contact Info) Description 08/26/2022 Prep for Procedure [facility] Endoscopy [address] [place] [address] David Nava MD [facility] [address] [place] [address] Social History Tobacco Use Types [...] Info) Description 09/19/2024 14:00 EST Initial consult [facility] Interventional Pain [address] [place] [address] Brigitte Camilo PA-C [address] [facility] [address] [place] [address] documented as of this encounter Visit Diagnoses Not on filedocumented in this encounter Care Teams Classification Counselor Relationship Specialty Start Date End Date Sharif Rizvi MD [address] [place] [id number] PCP - General 02/08/11 documented as of this encounter
--- OUTSIDE RECORDS SUMMARY | 2024-08-20 16:07 | XMS_ITS | Encounter Summary ---
Author Organization [facility] Address [address] [place] [address] Care Team Providers Care Parts Driver Name Role Phone Sharif Rizvi MD Primary Care Provider [phone] Encounter Details Date Type Department Care Team (Late st Contact Info) Description 04/01/2020 Lab Requisition [facility] Pathology & Laboratory Medicine - [address] [id number] Outr Resulting Lab, Provider Social History Tobacco [...] Info) Description 09/19/2024 14:00 EST Initial consult [facility] Interventional Pain [address] [place] [address] Brigitte Camilo PA-C 62 [facility] [address] [place] [address] documented as of this encounter Procedures Procedure Name Priority Date/Time Associated Diagnosis Comments VITAMIN D (25,OH) Routine 04/01/2020 11: 37 EDT documented in this encounter Results * VITAMIN D (25,OH) (04/01/2020 11:37 EDT) 25OH Vitamin D Tot 33.5 30.0 - 100.0 ng/mL 04/02/2020 11:12 EDT [facility] Comment: Vitamin D 25,OH Interpretive Ranges: Deficiency: ??<10.0 ng/mL Insufficiency: ??10.0 - 30.0 ng/mL Sufficiency: ??30.0 - 100.0 ng/mL Toxicity: ??>100.0 ng/mL Blood VENOUS BLOOD / Unknown 04/01/2020 11:37 EDT 04/01/2020 21:57 EDT Provider Outr Resulting Lab CHEMISTRY & BLOOD GAS ORDERABLES [facility] [address] [place] [address] documented in this encounter Visit Diagnoses Not on filedocumented in this encounter Care Teams Parts Driver Relationship Specialty Start Date End Date Sharif Rizvi MD [address] [place] [address] PCP - General 02/08/11 documented as of this encounter
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
--- OUTSIDE RECORDS SUMMARY | 2024-08-20 16:07 | XMS_ITS | Encounter Summary ---
Author Organization [facility] Address [address] [place] [address] Care Team Providers Care Acid Cutter Name Role Phone Sharif Rizvi MD Primary Care Provider [phone] Reason for Visit * Reason Comments Medications Refill Encounter Details Date Type Department Care Team (Late st Contact Info) Description 01/21/[address] [facility] Obstetrics & Midwifery - [address] [phone] Arnaud Mckeon MD [address] [place] [address], [address] [place] [address] Medications Refill Social History Tobacco [...] Dispensed Refills Start Date End Da te M- PLUS 27 mg iron- 1 mg tablet tablet TAKE 1 TABLET BY MOUTH EVERY DAY 90 Tablet 3 01/23/2023 documented in this encounter Plan of Treatment Upcoming Encounters Date Type Department Care Team (Late st Contact Info) Description 09/19/2024 14:[address] [facility] Interventional Pain [address] [place] [address] Brigitte Camilo PA-C 62 [facility] [address] [place] [address] documented as of this encounter Visit Diagnoses Not on filedocumented in this encounter Discontinued Medications Medication Sig Discontinue Reason Start Date End Da te M-NORM PLUS 27 mg iron- 1 mg tablet tablet TAKE 1 TABLET BY MOUTH EVERY DAY 12/24/2021 01/23/2023 documented as of this encounter Care Teams Acid Cutter Relationship Specialty Start Date End Date Sharif Rizvi MD [address] [place] [address] PCP - General 02/08/11 documented as of this encounter
--- OUTSIDE RECORDS SUMMARY | 2024-08-20 16:07 | XMS_ITS | Encounter Summary ---
Author Organization [facility] Address [address] [place] [address] Care Team Providers Care Party Supply Specialist Name Role Phone Sharif Rizvi MD Primary Care Provider [phone] Reason for Referral * (Routine/Next Available) - Receiving Office to Obtain Authorization Specialty Diagnoses / Procedures Referred By Contac t Referred To Contact Procedures CT OUTSIDE IMAGES HEAD AND NECK Imaging, External Referral ID Status Reason Start Date Expiration Date Visits Requested Visits Authorized [id number] Receiving Office to Obtain Authorization 02/21/2024 1 1 Reason for Visit * (Routine/Next Available) - Receiving Office to Obtain Authorization Specialty Diagnoses / Procedures Referred By Contac t Referred To Contact Procedures CT OUTSIDE IMAGES HEAD AND NECK Imaging, External Referral ID Status Reason Start Date Expiration Date Visits Requested Visits Authorized [id number] Receiving Office to Obtain Authorization 02/21/2024 1 1 Encounter Details Date Type Department Care Team (Latest Contact Info) Description 09/28/2023 - 09/28/2023 23:59 EST Hospital Encounter [facility] Secondary Reads [place] Discharge Disposition: Home or Self Care Social History Tobacco Use Types Packs/Day Years [...] on file documented as of this encounter Medications at Time of Discharge Medication Sig Dispensed Refills Start Date End Date busPIRone (BUSPAR) 5 mg tabletIndications:generali zed anxiety disorder Take 5 mg by mouth 2 times daily. cholecalciferol, Vitamin D3, 1,000 unit tabletIndications:vitamin D deficiency Take 1,000 Units by mouth daily. fluticasone (FLONASE) 50 mcg/Actuation nasal spray 1 [place] by Nasal route daily. HYDROCODONE BIT/ACETAMINOPHEN (VICODIN ORAL) Take by mouth. 5/325 mg BID insulin degludec (TRESIBA FLEXTOUCH U-100) 100 unit/ml (3ml) insulin pen Inject 90 Units into the skin daily. insulin detemir (LEVEMIR U-100 INSULIN SUBQ) Inject 28 Units into the skin daily. lamoTRIgine (LAMICTAL) 100 mg tablet Take 200 mg by mouth daily. 10/07/2010 liraglutide (VICTOZA) 0.6 mg/0.1 mL (18 mg/3 mL) injectable penIndications:type 2 diabetes mellitus Inject 1.8 mg into the skin daily. M- PLUS 27 mg iron- 1 mg tablet tablet TAKE 1 TABLET BY MOUTH EVERY DAY 90 Tablet 3 01/23/2023 metformin (GLUCOPHAGE) 500 mg tablet Take 1,000 mg by mouth 2 times daily with meals. metoprolol (LOPRESSOR) 12.5 mg Take 12.5 mg by mouth 2 times daily. oxyCODONE ER 20 mg tab, crush resistant, extended release 12 hrIndications:severe chronic pain requiring long-term opioid treatment Take 20 mg by mouth every 12 hours. pravastatin (PRAVACHOL) 10 mg tablet Take 10 mg by mouth daily. semaglutide (OZEMPIC) subcutaneous pen Inject 0.25 mg into the skin every 7 days. documented as of this encounter Discharge Disposition Disposition Code Departure Means Destination Home or Self Care documented in this encounter Plan of Treatment Upcoming Encounters Date Type Department Care Team (Late st Contact Info) Description 09/19/2024 14:00 EST Initial consult [facility] Interventional Pain [address] [place] [phone] Brigitte Camilo PA-C [address] [place] [address] documented as of this encounter Procedures Procedure Name Priority Date/Time Associated Diagnosis Comments CT OUTSIDE IMAGES HEAD AND NECK Routine 09/28/2023 9:33 EST documented in this encounter Results * CT OUTSIDE IMAGES HEAD AND NECK (09/28/2023 9:33 EST) Narrative 02/21/2024 9:33 EDT This is a non-reportable exam. External Imaging IMG OTHER IMAGING OR DERABLES documented in this encounter Visit Diagnoses Not on filedocumented in this encounter Care Teams Party Supply Specialist Relationship Specialty Start Date End Date Sharif Rizvi MD [address] [place] [address] PCP - General 02/08/11 documented as of this encounter
--- OUTSIDE RECORDS SUMMARY | 2024-08-20 16:07 | XMS_ITS | Encounter Summary ---
Author Organization [facility] Address [address] [place] [address] Care Team Providers Care Airport Traffic Controller Name Role Phone Sharif Rizvi MD Primary Care Provider [phone] Reason for Visit * Reason Comments Other Encounter Details Date Type Department Care Team (Late st Contact Info) Description 06/06/2021 Refill [facility] Obstetrics & Midwifery - [address] [phone] Arnaud Mckeon MD [address] [place] [address], [facility] [address] [place] [address] Other Social History Tobacco Use [...] Info) Description 09/19/2024 14:00 EST Initial consult [facility] Interventional Pain [address] [place] [address] Brigitte Camilo PA-C [address] [place] [address] documented as of this encounter Visit Diagnoses Diagnosis Encounter for preconception consultation Other procreative management counseling and advice Morbid obesity with BMI of 45.0-49.9, adult ([facility]) Morbid obesity Type 2 diabetes mellitus without complication, with long-term current use of insulin ([facility]) documented in this encounter Care Teams Airport Traffic Controller Relationship Specialty Start Date End Date Sharif Rizvi MD [address] [place] [address] PCP - General 02/08/11 documented as of this encounter
--- OUTSIDE RECORDS SUMMARY | 2024-08-20 16:07 | XMS_ITS | Encounter Summary ---
Author Organization [facility] Address [address] [place] [address] Care Team Providers Care Work Manager Name Role Phone Sharif Rizvi MD Primary Care Provider [phone] Reason for Referral * Referral (Routine/Next Available) - Receiving Office to Obtain Authorization Specialty Diagnoses / Procedures Referred By Corby medina Referred To Contact Diagnoses Dysphagia, unspecified type Procedures UPPER ENDOSCOPY (EGD) David Nava MD [facility] [address] [place] [phone] Referral ID Status Reason Start Date Expiration Date Visits Requested Visits Authorized [id number] Receiving Office to Obtain Authorization 2 1 1 Reason for Visit * Auth/Cert Specialty Diagnoses / Procedures Referred By Corby medina Referred To Contact Referral ID Status Reason Start Date Expiration Date Visits Re quested Visits Authorized [id number] 1 1 Encounter Details Date Type Department Care Team (Latest Contact Info) Description 08/30/2022 8:46 EDT - 08/30/2022 23:[address] [facility] [address] [place] [address] David Nava MD [address] [place] [phone] Kimo Parra MD [address] [place] [phone] Dysphagia, unspecified type Discharge Disposition: Home or Self Care Social [...] Date End Date busPIRone (BUSPAR) 5 mg tabletIndications:general ized anxiety disorder Take 5 mg by mouth 2 times daily. cholecalciferol, Vitamin D3, 1,000 unit tabletIndications:vitamin D deficiency Take 1,000 Units by mouth daily. fluticasone (FLONASE) 50 mcg/Actuation nasal spray 1 [place] by Nasal route daily. HYDROCODONE BIT/ACETAMINOPHEN (VICODIN ORAL) Take by mouth. 5/325 mg BID insulin detemir (LEVEMIR U-100 INSULIN SUBQ) Inject 28 Units into the skin daily. lamoTRIgine (LAMICTAL) 100 mg tablet Take 200 mg by mouth daily. 10/07/2010 liraglutide (VICTOZA) 0.6 mg/0.1 mL (18 mg/3 mL) injectable penIndications:type 2 diabetes mellitus Inject 1.8 mg into the skin daily. metformin (GLUCOPHAGE) 500 mg tablet Take 1,000 mg by mouth 2 times daily with meals. metoprolol (LOPRESSOR) 12.5 mg Take 12.5 mg by mouth 2 times daily. oxyCODONE ER 20 mg tab, crush resistant, extended release 12 hrIndications:severe chronic pain requiring long-term opioid treatment Take 20 mg by mouth every 12 hours. pravastatin (PRAVACHOL) 10 mg tablet Take 10 mg by mouth daily. folic acid (FOLVITE) 1 mg tabletIndications:Encount er for preconception consultation,Morbid obesity with BMI of 45.0-49.9, adult ([facility]),Type 2 diabetes mellitus without complication, with long-term current use of insulin ([facility]) Take 4 Tabs by mouth daily for 180 days. 360 Tab 1 12/25/2020 09/01/2022 M- PLUS 27 mg iron- 1 mg tablet tablet TAKE 1 TABLET BY MOUTH EVERY DAY 90 Tablet 3 12/24/2021 01/23/2023 documented as of this encounter Discharge Disposition Disposition Code Departure Means Destination Home or Self Residential documented in this encounter Plan of Treatment Upcoming Encounters Date Type Department Care Team (Late st Contact Info) Description 09/19/2024 14:[address] [facility] Interventional Pain [address] [facility] [place], [place] [phone] Brigitte Camilo PA-C 62 [facility] [address] [place] [address] Scheduled Orders Name Type Priority Associated Diagnoses Orde r Schedule UPPER ENDOSCOPY (EGD) GI Routine Dysphagia, unspecified type 1 Occurrences starting 08/30/2022 until 08/30/2022 documented as of this encounter Visit Diagnoses Diagnosis Dysphagia, unspecified type documented in this encounter Care Teams Work Manager Relationship Specialty Start Date End Date Sharif Rizvi MD 4 [facility] 6 [place] [address] PCP - General 02/08/11 documented as of this encounter
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
--- OUTSIDE RECORDS SUMMARY | 2024-08-20 16:07 | XMS_ITS | Encounter Summary ---
Author Organization [facility] Address [address] [place] [address] Care Team Providers Care Measurement Operator Name Role Phone Sharif Rizvi MD Primary Care Provider [phone] Reason for Visit * Reason Onset Date Comments Medications Refill 03/30/2021 Encounter Details Date Type Department Care Team (Late st Contact Info) Description 03/30/2021 Refill [facility] Obstetrics & Midwifery - [facility] [address] [place], [place] [phone] Arnaud Mckeon MD [address] [place] [address], [address] [place] [address] Medications Refill Social History Tobacco [...] Dispensed Refills Start Date End Da te vit-iron fumarate-FA 27 mg iron- 0.8 mg tablet Take 1 Tab by mouth daily. May substitute with generic that's comparable and covered by patient's insurance. 100 Tab 2 03/30/2021 12/24/2021 documented in this encounter Miscellaneous Notes * Telephone Encounter - Ronda Sanchez RN - 03/30/2021 1014 EDTFrom: Claudia Craft To: Office of Arnaud Mckeon MD Sent: 03/30/2021 10:11 EDT Subject: Medication Renewal Request Refills have been requested for the following medications: vit-iron fumarate-FA 27 mg iron- 0.8 mg tablet [Arnaud Mckeon MD] Preferred pharmacy: [id number] - [place], [place] - [address] documented in this encounter Plan of Treatment Upcoming Encounters Date Type Department Care Team (Late st Contact Info) Description 09/19/2024 14:00 EST Initial consult [facility] Interventional Pain [address] [facility] [place] [address] Brigitte Camilo PA-C 62 [facility] [address] [place] [address] documented as of this encounter Visit Diagnoses Not on filedocumented in this encounter Discontinued Medications Medication Sig Discontinue Reason Start Date End Da te vit-iron fumarate-FA 27 mg iron- 0.8 mg tablet Take 1 Tab by mouth daily. May substitute with generic that's comparable and covered by patient's insurance. Reorder 05/20/2020 03/30/2021 documented as of this encounter Care Teams Measurement Operator Relationship Specialty Start Date End Date Sharif Rizvi MD [address] [facility] 6 [place] [address] PCP - General 02/08/11 documented as of this encounter
--- OUTSIDE RECORDS SUMMARY | 2024-08-20 16:07 | XMS_ITS | Encounter Summary ---
Author Organization [facility] Address [address] [place] [address] Care Team Providers Care Manager Consumer Insights Name Role Phone Sharif Rizvi MD Primary Care Provider [phone] Encounter Details Date Type Department Care Team (Late st Contact Info) Description 12/25/2020 Orders Only [facility] Obstetrics & Midwifery - [facility] [address] [place] [address] Ronda Sanchez RN Encounter for preconception consultation; Morbid obesity with BMI of 45.0-49.9, adult ([facility]); Type 2 diabetes mellitus without complication, with long-term current use of insulin ([facility]) Social History Tobacco Use Types [...] Da te folic acid (FOLVITE) 1 mg tabletIndications:Encounter for preconception consultation,Morbid obesity with BMI of 45.0-49.9, adult ([facility]),Type 2 diabetes mellitus without complication, with long-term current use of insulin ([facility]) Take 4 Tabs by mouth daily for 180 days. 360 Tab 1 12/25/2020 09/01/2022 documented in this encounter Plan of Treatment Upcoming Encounters Date Type Department Care Team (Late st Contact Info) Description 09/19/2024 14:00 EST Initial consult [facility] Interventional Pain [address] [place], [place] [phone] Brigitte Camilo PA-C [address] [facility] [address] [place] [address] documented as of this encounter Visit Diagnoses Diagnosis Encounter for preconception consultation Other procreative management counseling and advice Morbid obesity with BMI of 45.0-49.9, adult ([facility]) Morbid obesity Type 2 diabetes mellitus without complication, with long-term current use of insulin ([facility]) documented in this encounter Discontinued Medications Medication Sig Discontinue Reason Start Date End Da te folic acid (FOLVITE) 1 mg tabletIndications:Encounte r for preconception consultation,Morbid obesity with BMI of 45.0-49.9, adult ([facility]),Type 2 diabetes mellitus without complication, with long-term current use of insulin ([facility]) Take 4 Tabs by mouth daily for 180 days. Reorder 05/19/2020 12/25/2020 documented as of this encounter Care Teams Manager Consumer Insights Relationship Specialty Start Date End Date Sharif Rizvi MD [address] [facility] 6 [place] [address] PCP - General 02/08/11 documented as of this encounter
--- OUTSIDE RECORDS SUMMARY | 2024-08-20 16:07 | XMS_ITS ---
Author Organization Unknown Address [address] [place] [phone] Phone Care Team Providers Care Fur Glazer Name Role Phone VENU JENKINS Registered Nurse Unavailable ALEJANDRA HODGE Attending Unavailable [facility] Unavailable ALEXEI Guo Primary Unavailable UNLISTED PROVIDER - REQUESTED Xhandoff Un available Results CT HEAD AND CSPINE WO CONTRA ST* - Completed: 09/29/2023 07:43 LOINC: [place], [place] [address] PACS PAD MACHINE OPERATOR REPORT Patient Name: CHALINO CHIU MRN: Sex: : Age: [id number] F [id number] Account: Accession: Admit: StayType: [id number] 09/28/2023 E/R Ordered: Order ID: Submitted: Ordering Provider: 09/28/2023 19:40 [id number] TERRI ECHEVERRIA Completed: Technologist: Resulted: 09/29/2023 07:43 MLL 09/29/2023 07:52 Study Description: CT HEAD AND CSPINE WO CONTRAST Study Reason: Trauma TECHNIQUE: Imaging Protocol: Axial computed tomography images with coronal and sagittal reformatted images were created and reviewed COMPARISON: No exams were available for comparison FINDINGS: BRAIN: There are no skull fractures. No fluid in the visualized paranasal sinuses. There is no evidence of intracranial hemorrhage, mass effect, or shift of midline structures. There are no extra-axial fluid collections. The ventricles are not enlarged or shifted and there is no blood within the ventricular system nor within the basal cisterns. CERVICAL SPINE: There is no evidence of acute fracture. No listhesis. There is anterior fusion plate at C6/7 level which appears intact and there is fusion across the disc space at this level noted as well as partial fusion of the facet joints at this level. There is moderate to space narrowing and anterior osteophytes at C5-6 level, this being 1 level above the fusion. Facet joints at this level and other levels appear unremarkable No significant osseous lesions evident. IMPRESSION: No acute intracranial findings on this noninfused CT scan of the brain. No evidence of cervical spine fracture, malalignment, nor acute compromise of the cervical spinal canal. Anterior fusion plate C6-7 noted. Report Digitally Signed by David Beavers on 09/29/2023 07:52 AM EST Social History Type Status Start Date End Date Code Code Syst em Smoking History Never smoker (Never Smoked) 233401755 SNOMED CT Sex Female Vital Signs Vital Sign Value Unit Haralson Value Haralson Unit Date/Time Recent/Initial? Code Code System Body Mass Index 41.99 kg/m2 09/28/2023 18:49 Initial 94288 -5 LOINC Systolic Blood Pressure 145 mm[Hg] 09/28/2023 18:49 Initial 8480- 6 LOINC Diastolic Blood Pressure 106 mm[Hg] 09/28/2023 18:49 Initial 8462- 4 LOINC Body Surface Area 2.03 m2 09/28/2023 18:49 Initial 3140- 1 LOINC Height 152.400 0 cm 60.00 in 09/28/2023 18:49 Initial 8302- 2 LOINC O2 Saturation 97 % 2022 18:49 Initial 59352 -5 LOINC Pulse 88.0 /min 09/28/2023 18:49 Initial 8867- 4 LOINC Respiration 18 /min 09/28/20 18:49 Initial 9279- 1 [facility] Temperature 36.5 Angelic 97.7 F 09/28/20 18:49 Initial 8310- 5 [facility] Weight 97.52 kg 215.00 lbs 09/28/2023 18:49 Initial 84936 -7 [facility] Medications Medication Start Date End Date Route Frequency Dose Code Code System Medication Instructions Home Meds OxyCONTIN 20MG Oral Tablet, Extended Release 01/18/2019 Unknown ORAL TWICE A DAY 20 MILLIGRAMS 0649614 RxNorm TAKE 20 MILLIGRAMS ORAL TWICE A DAY Gabapentin 600MG Oral Tablet 11/08/2021 Unknown TWICE A DAY 2 TABLET 519384 RxNorm 2 TABLET TWICE A DAY HYDROcodone bitartrate-gideon taminophen 5MG-325MG Oral Tablet 11/08/2021 Unknown TWICE A DAY 1 TABLET 421413 RxNorm 1 TABLET TWICE A DAY Metoprolol Succinate 25MG Oral Tablet, Extended Release 11/08/2021 Unknown TWICE A DAY 0.5 TABLET 758995 RxNorm 0.5 TABLET TWICE A DAY Tresiba FlexTouch Pen 100U/1ML Subcutaneous Solution 11/08/2021 Unknown DAILY 90 Unit(s) 6842697 RxNorm 90 Unit(s ) DAILY lamoTRIgine 100MG Oral Tablet 11/08/2021 Unknown DAILY 2 TABLET 267491 RxNorm 2 TABLET DAILY metFORMIN HCl 1000MG Oral Tablet 11/08/2021 Unknown ORAL TWICE A DAY 1000 447327 RxNorm TAKE 1000 ORAL TWICE A DAY rOPINIRole HCl 0.25MG Oral Tablet 11/08/2021 Unknown BEDTIME 2 TABLET 407654 RxNorm 2 TABLET BEDTIME Bactrim DS 800MG-160MG Oral Tablet 02/26/2023 3 ORAL TWICE A DAY 1 TABLET 944408 RxNorm TAKE 1 TABLET ORAL TWICE A [...] Status Code Code System COVID-19 PNEUMONIA active 94103744052 1545201 SNOMED-CT TYPE 2 DIABETES active 90560984 SNOM ED-CT BIPOLAR DISORDER active 72065857 SNO MED-CT CHRONIC PAIN SYNDROME active 300431265 SNOMED-CT RESPIRATORY FAILURE WITH HYPOXIA active 089550122 SNOMED-CT DIABETES 11/05/2021 resolved 19379511 SNOMED-CT DIABETES WO COMP TYPE II UNSPEC 11/05/2021 resolved SNOMED-CT ACUTE APPENDICITIS NOS 11/05/2021 resolved SNOMED-CT Allergies and Adverse Reactions Allergy Substance Reaction Severity Start Date Concern Status Co de Code System No Known Allergies Active 965882659 SNO MED-CT Plan of Treatment US RENAL 07/28/2022 CT ABDOMEN/PELVIS W/ CONTRAST Encounters Encounter Diagnosis Start Date Code Code Sys tem Strain of muscle, fascia and tendon at neck level, initial encounter 09/28/2023 SNOMED-CT Personal Care Team Section Performer Name Performer Role Active Date Inactive Da doron
--- OUTSIDE RECORDS SUMMARY | 2024-08-20 16:07 | XMS_ITS | Encounter Summary ---
Author Organization [facility] Address [address] [place] [address] Care Team Providers Care Group Art Supervisor Name Role Phone Sharif Rizvi MD Primary Care Provider [phone] Encounter Details Date Type Department Care Team (Late st Contact Info) Description 11/13/2018 Results Only Imaging [facility] [phone] Sharif Rizvi MD [address] [facility] [address] [place], [place] [phone] Social History Tobacco Use Types Packs/Day Years [...] Info) Description 09/19/2024 14:00 EST Initial consult [facility] Interventional Pain [address] [place] [address] Brigitte Camilo PA-C 62 [facility] [address] [place] [address] documented as of this encounter Visit Diagnoses Not on filedocumented in this encounter Care Teams Group Art Supervisor Relationship Specialty Start Date End Date Sharif Rizvi MD [address] [address] PCP - General 02/08/11 documented as of this encounter
--- OUTSIDE RECORDS SUMMARY | 2024-08-20 16:07 | XMS_ITS | Encounter Summary ---
Author Organization [facility] Address [address] [place] [address] Care Team Providers Care Field Crop Harvest Worker Name Role Phone Sharif Rizvi MD Primary Care Provider [phone] Encounter Details Date Type Department Care Team (Late Contact Info) Description 12/12/2019 Lab Requisition [facility] Pathology & Laboratory Medicine - [address] [address] Unknown, Provider, Social History Tobacco Use Types Packs/Day Years [...] [facility] Interventional Pain [address] [place] [address] Brigitte Camilo PA-C 62 [facility] [address] [place] [address] documented as of this encounter Procedures Procedure Name Priority Date/Time Associated Diagnosis Comments VITAMIN B12 Routine 12/12/2019 12:33 EST documented in this encounter Results * (ABNORMAL) VITAMIN B12 (12/12/2019 12:33 EST) Vitamin B12 193(L) 211 - 911 pg/mL 12/13/2019 12:14 EST [facility] Blood VENOUS BLOOD / Unknown 12/12/2019 12:33 EST 12/12/2019 21:49 EST Provider Unknown CHEMISTRY & BLOOD GA S ORDERABLES [facility] [address] [place] [address] documented in this encounter Visit Diagnoses Not on filedocumented in this encounter Care Teams Field Crop Harvest Worker Relationship Specialty Start Date End Date Sharif Rizvi MD [address] [facility] 6 [place] [address] PCP - General 02/08/11 documented as of this encounter
--- OUTSIDE RECORDS SUMMARY | 2024-08-20 16:07 | XMS_ITS | Encounter Summary ---
Author Organization [facility] Address [address] [place] [address] Care Team Providers Care Structural Engineer Name Role Phone Sharif Rizvi MD Primary Care Provider [phone] Encounter Details Date Type Department Care Team (Late st Contact Info) Description 09/05/2022 Prep for Procedure [facility] [address] [place] [address] Yaakov Johnson MD [facility] [address] [place] [address] Social History Tobacco Use Types [...] [facility] Interventional Pain [address] [place] [address] Brigitte Camilo PA-C 62 [facility] [address] [place] [address] documented as of this encounter Visit Diagnoses Not on filedocumented in this encounter Care Teams Structural Engineer Relationship Specialty Start Date End Date Sharif Rizvi MD [address] [place] [address] PCP - General 02/08/11 documented as of this encounter
--- OUTSIDE RECORDS SUMMARY | 2024-08-20 16:07 | XMS_ITS | Encounter Summary ---
Author Organization [facility] Address [address] [place] [address] Care Team Providers Care Retention Manager Name Role Phone Sharif Rizvi MD Primary Care Provider [phone] Encounter Details Date Type Department Care Team (Late st Contact Info) Description 04/01/2020 Lab Requisition [facility] Pathology & Laboratory Medicine - [address] [phone] Outr Resulting Lab, Provider Social History Tobacco [...] [facility] [address] [place] [address] Brigitte Camilo PA-C 62 [facility] [address] [place] [address] documented as of this encounter Procedures Procedure Name Priority Date/Time Associated Diagnosis Comments VARICELLA IGG ANTIBODY Routine 04/01/2020 11:37 EDT documented in this encounter Results * VARICELLA IGG ANTIBODY (04/01/2020 11:37 EDT) Varicella IgG Ab Positive See Note 04/02/2020 10:48 EDT [facility] Comment:Presence of detectab le Varicella Zoster virus IgG antibodies. Blood VENOUS BLOOD / Unknown 04/01/2020 11:37 EDT 04/01/2020 21:57 EDT Provider Outr Resulting Lab IMMUNOLOGY A ND SEROLOGY ORDERABLES [facility] [address] [place] [address] documented in this encounter Visit Diagnoses Not on filedocumented in this encounter Care Teams Retention Manager Relationship Specialty Start Date End Date Sharif Rizvi MD [address] [facility] 6 [place] [address] PCP - General 02/08/11 documented as of this encounter
--- OUTSIDE RECORDS SUMMARY | 2024-08-20 16:07 | XMS_ITS | Encounter Summary ---
Author Organization [facility] Address [address] [place] [address] Care Team Providers Care Team Automobile Assembler Name Role Phone Sharif Rizvi MD Primary Care Provider [phone] Reason for Visit * Reason Onset Date Comments Pre-visit Orders 05/20/2020 Encounter Details Date Type Department Care Team (Late st Contact Info) Description 05/20/2020 Orders Only [facility] Obstetrics & Midwifery - [facility] [address] [place], [place] [phone] Mary Lou Guzman, RN Social History Tobacco Use Types Packs/Day Years [...] covered by patient's insurance. 100 Tab 2 05/20/2020 03/30/2021 documented in this encounter Progress Notes * Mary Lou Guzman, RN - 05/20/2020 1352 EDT Patient requesting Rx for vitamins- e-scribed to patient's preferred pharmacy. documented in this encounter Plan of Treatment Upcoming Encounters Date Type Department Care Team (Late st Contact Info) Description 09/19/2024 14:00 EST Initial consult [facility] Interventional Pain [address] [place] [address] Brigitte Camilo PA-C 62 [facility] [address] [place] [address] documented as of this encounter Visit Diagnoses Not on filedocumented in this encounter Care Teams Team Automobile Assembler Relationship Specialty Start Date End Date Sharif Rizvi MD [address] [facility] 6 [place] [address] PCP - General 02/08/11 documented as of this encounter
--- OUTSIDE RECORDS SUMMARY | 2024-08-20 16:07 | XMS_ITS | Encounter Summary ---
Author Organization [facility] Address [address] [place] [address] Care Team Providers Care Black Ash Worker Name Role Phone Sharif Rizvi MD Primary Care Provider [phone] Encounter Details Date Type Department Care Team (Late st Contact Info) Description 09/23/2020 Lab Requisition [facility] Pathology & Laboratory Medicine - [facility] [address] [place] [address] Outr Resulting Lab, Provider Social History Tobacco [...] 09/19/2024 14:[address] [facility] Interventional Pain [address] [place] [address] Brigitte Camilo PA-C 62 [facility] [address] [place] [address] documented as of this encounter Procedures Procedure Name Priority Date/Time Associated Diagnosis Comments ESTRADIOL, ADULTS Routine 09/23/2020 14: 52 EST documented in this encounter Results * ESTRADIOL, ADULTS (09/23/2020 14:52 EST) Estradiol 36 See Note pg/mL 09/23/2020 23:22 EST [facility] Comment: NOTE: FEMALE REFERENCE RANGES: [...] this drug. Blood VENOUS BLOOD / Unknown 09/23/2020 14:52 EST 09/23/2020 22:49 EST Provider Outr Resulting Lab CHEMISTRY & BLOOD GAS ORDERABLES Performing Organization Address City/State/[facility] Co de Phone Number [facility] [address] [place] [address] documented in this encounter Visit Diagnoses Not on filedocumented in this encounter Care Teams Black Ash Worker Relationship Specialty Start Date End Date Sharif Rizvi MD [address] [facility] 6 [place] [address] PCP - General 02/08/11 documented as of this encounter
--- OUTSIDE RECORDS SUMMARY | 2024-08-20 16:07 | XMS_ITS | Encounter Summary ---
Author Organization [facility] Address [address] [place] [address] Care Team Providers Care Metal Pourer Name Role Phone Sharif Rizvi MD Primary Care Provider [phone] Reason for Visit * Reason Onset Date Comments Results 04/07/2020 Encounter Details Date Type Department Care Team (Late st Contact Info) Description 04/07/2020 Telephone [facility] OBGYN Services - [address] [phone] Inez Molina MD [address] [facility] [address] [place] [address] Results Social History Tobacco Use Types Packs/Day Years [...] Telephone Encounter - Genia Klein RN - 04/07/2020 1677 EDT Call to Claudia, reviewed available results. Advised her MMR vaccine recommended. She will call her PCP to ask about booster vaccine. She will call back after [facility] appt to schedule f/u with Dr. Molina. No further questions at this time. * Telephone Encounter - Genia Klein RN - 04/07/2020 1414 EDT Component Latest Ref Rng & Units 04/01/2020 Rubells IgG Ab See Note Negative Varicella IgG Ab See Note Positive 25OH Vitamin D Tot 30.0 - 100.0 ng/mL 33.5 Measles IgG Ab See Note Positive Call back to Claudia to review labs resulted so far. LVM asking her to call back to discuss. Pt also needs to schedule f/u with Dr Molina to discuss MFM appt, lab results, and COVID counseling. * Telephone Encounter - Yvonne Mckeon - 04/07/2020 1201 EDT Patient is looking to go over lab results order by Dr. Molina. Yvonne Mckeon 04/07/2020 12:01 documented in this encounter Plan of Treatment Upcoming Encounters Date Type Department Care Team (Late st Contact Info) Description 09/19/2024 14:00 EST Initial consult [facility] Interventional Pain [address] [place], [place] [phone] Brigitte Camilo PA-C 62 [facility] [address] [place] [address] documented as of this encounter Visit Diagnoses Not on filedocumented in this encounter Care Teams Metal Pourer Relationship Specialty Start Date End Date Sharif Rizvi MD [address] [facility] 6 [place] [address] PCP - General 02/08/11 documented as of this encounter
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
--- OUTSIDE RECORDS SUMMARY | 2024-08-20 16:07 | XMS_ITS | Encounter Summary ---
Author Organization [facility] Address [address] [place] [address] Care Team Providers Care Monument Setter Helper Name Role Phone Sharif Rizvi MD Primary Care Provider [phone] Encounter Details Date Type Department Care Team (Late st Contact Info) Description 03/26/2019 Results Only Imaging [facility]- [facility] [phone] Sharif Rizvi MD [address] [facility] [address] [place], [place] [id number] Social History Tobacco Use Types Packs/Day Years [...] Info) Description 09/19/2024 14:00 EST Initial consult [facility] Interventional Pain [address] [place] [address] Brigitte Camilo PA-C [address] [facility] [address] [place] [address] documented as of this encounter Visit Diagnoses Not on filedocumented in this encounter Care Teams Monument Setter Helper Relationship Specialty Start Date End Date Sharif Rizvi MD [address] [address] PCP - General 02/08/11 documented as of this encounter
--- OUTSIDE RECORDS SUMMARY | 2024-08-20 16:07 | XMS_ITS | Referral Summary ---
Author Organization [facility] Address [address] [place] [address] Care Team Providers Care Cardiology Physician Name Role Phone Sharif Rizvi MD Primary Care Provider [phone] Allergies No known active allergies Medications Medication Sig Dispensed Refills Start Date End Date Status HYDROCODONE BIT/ACETAMINOPHEN (VICODIN ORAL) Take by mouth. 5/325 mg BID Active lamoTRIgine (LAMICTAL) 100 mg tablet Take 200 mg by mouth daily. 10/07/2010 Active fluticasone (FLONASE) 50 mcg/Actuation nasal spray 1 [place] by Nasal route daily. Active metformin (GLUCOPHAGE) [...] complication, with long-term current use of insulin ([facility]) 05/19/2020 Vitamin D deficiency 03/30/2020 PCOS (polycystic ovarian syndrome) 03/30/2020 ETD (eustachian tube dysfunction) 03/02/2011 Allergic rhinitis 02/09/2011 Overview: ICD10 Update Auto Replacement Sensorineural hearing loss 02/09/2011 Chronic serous otitis media 02/09/2011 Fibromyalgia 10/07/2010 Bipolar disorder ([facility]) 10/07/2010 Morbid obesity with BMI of 45.0-49.9, adult ([facility]) 10/07/2010 Resolved Problems Problem Noted Date Diagnosed Date Resolved Date Sinusitis 10/07/2010 02/09/2011 Overview: ICD10 Update Auto Replacement Social History Tobacco Use Types Packs/Day Years [...] on file Sexual Orientation Not on file Last Filed Vital Signs Vital Sign Reading [...] consult [facility] Interventional Pain [address] [place] [address] Brigitte Camilo PA-C [address] [place] [phone] Medical Devices Implanted Type Area Tar Leveler Device Identifier Shelf Expiration Date Model / Serial / Lot Mr Safe Cervical Spinal Fusion Hardware Spinal Implant Description:MR SAFE CERVICAL FUSION SPINAL HARDWARE previous C6 C7 Fusion hardware(RD 11/07/18) Care Teams Cardiology Physician Relationship Specialty Start Date End Date Sharif Rizvi MD [address] [address] PCP - General 02/08/11
--- OUTSIDE RECORDS SUMMARY | 2024-08-20 16:07 | XMS_ITS | Encounter Summary ---
Author Organization [facility] Address [address] [place] [address] Care Team Providers Care Nail Making Machine Setter Name Role Phone Sharif Rizvi MD Primary Care Provider Reason for Visit * Reason Onset Date Comments Results 04/14/2020 Encounter Details Date Type Department Care Team (Late st Contact Info) Description 04/14/2020 Telephone [facility] Reproductive Medicine & Infertility Center - [facility] [address] [place] [address] Sil Carbone RN [address] [place] [address] Results Social History Tobacco Use Types Packs/Day [...] Telephone Encounter - Genia Klein RN - 05/13/2020 1114 EDT Received CD#3 results. FSH= 6.8 E2= 22 * Telephone Encounter - Sil Carbone RN - 04/14/2020 1445 EDT Call to Claudia. Reviewed AMH of 0.3. Pt will go to [facility] for CD#3 labs. Expecting menses soon. ----- Message from Inez Molina MD sent at 04/14/2020 14:20 EDT ----- Her AMH is quite low (0.3); can you have her check CD 3 FSH, E2 for more information on ovarian reserve? Also, she is rubella non-immune so rec MMR with her PMD. Inez Molina MD documented in this encounter Plan of Treatment Upcoming Encounters Date Type Department Care Team (Late st Contact Info) Description 09/19/2024 14:[address] [facility] Interventional Pain [address] [facility] [place] [address] Brigitte Camilo PA-C [address] [facility] [address] [place] [address] documented as of this encounter Visit Diagnoses Diagnosis Fertility testing- Primary documented in this encounter Care Teams Nail Making Machine Setter Relationship Specialty Start Date End Date Sharif Rizvi MD [address] [facility] [address] [place] [address] PCP - General 02/08/11 documented as of this encounter
--- OUTSIDE RECORDS SUMMARY | 2024-08-20 16:07 | XMS_ITS | Encounter Summary ---
Author Organization [facility] Address [address] [place] [address] Care Team Providers Care Vacuum Spindle Sander Name Role Phone Sharif Rizvi MD Primary Care Provider Encounter Details Date Type Department Care Team (Late st Contact Info) Description 12/12/2019 Lab Requisition [facility] Pathology & Laboratory Medicine - [address] [address] Unknown, Provider, Social History Tobacco Use Types [...] [facility] [address] [place] [address] Brigitte Camilo PA-C [address] [facility] [address] [place] [address] documented as of this encounter Procedures Procedure Name Priority Date/Time Associated Diagnosis Comments VITAMIN D (25,OH) Routine 12/12/2019 12: 33 EST documented in this encounter Results * (ABNORMAL) VITAMIN D (25,OH) (12/12/2019 12:33 EST) 25OH Vitamin D Tot 7.6(L) 30.0 - 100.0 ng/mL 12/13/2019 10:30 EST [facility] Comment: Vitamin D 25,OH Interpretive Ranges: Deficiency: ??<10.0 ng/mL Insufficiency: ??10.0 - 30.0 ng/mL Sufficiency: ??30.0 - 100.0 ng/mL Toxicity: ??>100.0 ng/mL Blood VENOUS BLOOD / Unknown 12/12/2019 12:33 EST 12/12/2019 21:46 EST Provider Unknown CHEMISTRY & BLOOD GA S ORDERABLES [facility] [address] [place] [address] documented in this encounter Visit Diagnoses Not on filedocumented in this encounter Care Teams Vacuum Spindle Sander Relationship Specialty Start Date End Date Sharif Rizvi MD [address] [address] PCP - General 02/08/11 documented as of this encounter
--- OUTSIDE RECORDS SUMMARY | 2024-08-20 16:07 | XMS_ITS | Encounter Summary ---
Author Organization [facility] Address [address] [place] [address] Care Team Providers Care Examiner Rating Clerk Name Role Phone Sharif Rizvi MD Primary Care Provider [phone] Reason for Visit * Reason Comments Advice Only * Consult (Routine/Next Available) - Order Cancelled Specialty Diagnoses / Procedures Referred By Corby medina Referred To Contact Obstetrics Diagnoses Class 3 severe obesity due to excess calories with serious comorbidity and body mass index (BMI) of 45.0 to 49.9 in adult ([facility]) Encounter for preconception consultation Inez Molina MD [address] [address] [facility] Ep4 Ob/Mfm [address] [place] [address] Referral ID Status Reason Start Date Expiration Date Visits Requested Visits Authorized [id number] Order Cancelled Specialty Services Required 03/30/2020 1 1 Encounter Details Date Type Department Care Team (Late st Contact Info) Description 05/19/2020 8:30 EDT Telemedicine [facility] Obstetrics & Midwifery - [address] [id number] Arnaud Mckeon MD [address] [phone] Encounter for preconception consultation (Primary Dx); Morbid obesity with BMI of 45.0-49.9, adult ([facility]); Type 2 diabetes mellitus with hypoglycemia without coma, with long-term current use of insulin ([facility]); Type 2 diabetes mellitus without complication, with long-term current use of insulin ([facility]) Social History Tobacco Use Types Packs/Day Years [...] consultation,Morbid obesity with BMI of 45.0-49.9, adult ([facility]),Type 2 diabetes mellitus without complication, with long-term current use of insulin ([facility]) Take 4 Tabs by mouth daily for 180 days. 360 Tab 1 05/19/2020 12/25/2020 documented in this encounter Progress Notes * Arnaud Mckeon MD - 05/19/2020 0830 EDT Today's visit was provided through telemedicine audio-visual conferencing: Consent: The concept of telemedicine?? has been [...] : Home The location of the provider: Clinic Exam Room The following people (and their respective roles) participated in today's encounter: Claudia Craft, patient Arnaud Mckeon MD, provider The audio-video application used to conduct the visit was zoomsquare. I spent a total of 40 minutes with Claudia Craft today and 40 minutes of that time was spent in counseling and coordination of care as described in the progress note. May 19, 2020 Inez Molina MD [facility] Reproductive Endocrinology & Infertility Re: Claudia Craft Dear Dr. Molina: I had the pleasure of meeting with Ms. Craft today via video-conferencing. As you know, she is a 35-year-old woman, 0 para 0, who you referred for preconception consultation due to maternalobesity (BMI 47), type 2 diabetes and PCOS. Her medical history is significant for type 2 diabetes, several years ago that is being managed by her PCP (Dr. Rizvi). Her most recent Hgb A1c was 7.3% about 2 months ago. Currently she is taking metformin 1000 mg bid, Levemir 28 units daily and liraglutide 1.8 mg daily. I reviewed the complications related to obesity and type 2 diabetes with Ms. Craft, including an increased risk of preeclampsia, defects, mortality, (both for labor abnormalities and emergencies) and macrosomia. I noted that there is also an association between obesity and neurocognitive abnormalities in offspring including cognitive impairment, autism spectrum disorders, attention deficit hyperactivity disorder and other psychiatric disorders. I discussed that most of the complications of that are linked to obesity are complications seen in pregnancies carried by women of normal weight, but they just occur with a higher frequency in the obese population. Her diabetes, particularly given the elevated glycohemoglobin level, carries an increased risk ofbirth defects and stillbirth. I told her that the only thing she could really do to help improve her risk profile would be significant weight loss. I noted that for most women of her BMI, bariatric surgery is the only option thathas been shown to keep weight off for the long haul. We discussed that we would not recommend pursuing for 2 years after the surgery in order to give her a chance to stabilize her weight and get a new homeostasis. I let her know I recognized that she probably was not thinking of a 2-3 year delay in pursuing , but that it would be the best approach to a healthy and if she wanted to talk about it more, I would be happy to do so. She told me that she had already lost alittle weight and wanted to proceed with . As we discussed her type 2 diabetes, I reviewed our goal to get her under better control prior to conception. The hemoglobin A1c had 2 months ago was still suboptimal, and we would like to see her inor very close to the normal range. Liraglutide does not have much human data. Animal studies suggest a risk, with both rats and rabbits showing a variety of defects across a range of doses. I could only find one case report of a human exposure. In that one case, a woman taking liraglutide through 13 weeks??? had the drug stopped at that point and delivered a healthy child.1 Nonetheless, that is only one case, and given the animal studies, I would not want her on liraglutide once she has co nceived. I let her know that she may want to come off it prior to her IVF or, at a minimum, when she gets a positive test. In general, the data is clear that insulin is best treatment for diabetes in since it has a long history of study and doesn???t cross the placenta. She could stay on her metformin, but she will need more insulin. Since she has an increased risk of the hypertensive disorders of , including preeclampsia, I have ordered a 24?? urinary protein collection so we will have a baseline. In order to help mitigate for the increased risk of defects, I recommend that she take folic acid supplementation now in preparation for . I have prescribed a folic acid for her that she can take through 13 weeks???. In order to evaluate her for a defect, I would get an early anatomy scan at 13 weeks???, a detailed scan at 21 weeks??? and a echocardiogram at 22-23 weeks???. Monthly growth scans in the 2nd/3rd trimester and weekly testing at 32 weeks??? wouldalso be recommended to look for abnormal growth and reduce the risk of stillbirth. I noted we wouldanticipate delivery at 39 weeks??? or earlier, depending on how things went. Reviewing her lab work, I saw that she is not showing immunity to rubella. I have advised her to goto her PCP and get a rubella vaccination. I also discussed that cystic fibrosis mutation screening and SMA screening would be offered to her and likely covered by insurers once she is . I discussed the somewhat problematic issue of waiting until you are to see if you are a carrier,so I noted that for women who can afford it, that screening or even extended carrier screening is available prenatally for about $300 last time I checked. At this point, she is looking forward to getting her rubella vaccine, waiting a couple of months and then moving forward with her infertility treatments I spent my entire 40-minute session counseling Ms. Craft on the management of a future in light of her obesity and type 2 diabetes. She indicated she understood our concerns and that her questions had been answered. Thank you for referring Ms. Craft to the [facility] Maternal- Medicine service. Please feel free to contact me if you have questions or concerns. Best regards, Arnaud Mckeon MD Director, Diagnostic Center Professor of Obstetrics, Gynecology & Reproductive Sciences [facility], Dept. of OBGYN Division of Maternal- Medicine [email or web address] 1. [place] Langford. Normal outcome after first-trimester exposure to liraglutide in a woman with Type 2 diabetes. Diabet Med 2015;32:e29-30. documented in this encounter Plan of Treatment Upcoming Encounters Date Type Department Care Team (Late st Contact Info) Description 09/19/2024 14:00 EST Initial consult [facility] Interventional Pain [address] [facility] [place] [address] Brigitte Camilo PA-C [address] [facility] [address] [place] [address] documented as of this encounter Visit Diagnoses Diagnosis Encounter for preconception consultation- Primary Other procreative management counseling and advice Morbid obesity with BMI of 45.0-49.9, adult ([facility]) Morbid obesity Type 2 diabetes mellitus with hypoglycemia without coma, with long-term current use of insulin ([facility]) Type 2 diabetes mellitus without complication, with long-term current use of insulin ([facility]) documented in this encounter Care Teams Examiner Rating Clerk Relationship Specialty Start Date End Date Sharif Rizvi MD [address] [address] PCP - General 02/08/11 documented as of this encounter
--- OUTSIDE RECORDS SUMMARY | 2024-08-20 16:07 | XMS_ITS | Encounter Summary ---
Author Organization [facility] Address [address] [place] [address] Care Team Providers Care General Maintenance Helper Name Role Phone Sharif Rizvi MD Primary Care Provider [phone] Reason for Visit * Reason Onset Date Comments Other Medications Refill 12/24/2021 Encounter Details Date Type Department Care Team (Late st Contact Info) Description 12/24/2021 Refill [facility] Obstetrics & Midwifery - [facility] [address] [place], [place] [phone] Arnaud Mckeon MD [address] [place] [address], [address] [place] [address] Other; Medications Refill Social History Tobacco Use Types [...] DAY 90 Tablet 3 12/24/2021 01/23/2023 documented in this encounter Plan of Treatment Upcoming Encounters Date Type Department Care Team (Late st Contact Info) Description 09/19/2024 14:00 EST Initial consult [facility] Interventional Pain [address] [place] [address] Brigitte Camilo PA-C [address] [facility] [address] [place] [address] documented as of this encounter Visit Diagnoses Not on filedocumented in this encounter Discontinued Medications Medication Sig Discontinue Reason Start Date End Da te vit-iron fumarate-FA 27 mg iron- 0.8 mg tablet Take 1 Tab by mouth daily. May substitute with generic that's comparable and covered by patient's insurance. 03/30/2021 12/24/2021 documented as of this encounter Care Teams General Maintenance Helper Relationship Specialty Start Date End Date Sharif Rizvi MD [address] [facility] [address] [place] [address] PCP - General 02/08/11 documented as of this encounter
--- OUTSIDE RECORDS SUMMARY | 2024-08-20 16:08 | XMS_ITS | Encounter Summary ---
Author Organization [facility] Address [address] [place] [address] Care Team Providers Care Statement Clerk Name Role Phone Sharif Rizvi MD Primary Care Provider [phone] Reason for Visit * Reason Comments Follow-up prednisone no help Encounter Details Date Type Department Care Team (Late st Contact Info) Description 03/02/2011 11:20 EDT Office Visit [facility] ENT [address] [address] Unknown, ProviderMD Jensen Moe MD [address] [place] [address] [address] Unspecified hearing loss (Primary Dx); ETD (eustachian tube dysfunction) Social History Tobacco Use Types Packs/Day Years Used Date Smoking Tobacco: Never Alcohol Use Standard Drinks/Week Comments No 0 (1 standard drink = 0.6 oz pur e alcohol) Sex and Gender Information Value Date Recorded Sex Assigned at Not on file Gender Identity Not on file Sexual Orientation Not on file documented as of this encounter Progress Notes * Jensen Moe MD - 03/11/2011 1030 EDT [facility] PROGRESS/FOLLOWUP NOTE - 03/02/2011 PROBLEMS: Followup eustachian tube dysfunction and middle ear effusion. SUBJECTIVE: The patient took the prednisone, but has not noticed any significant benefit, but is now having some popping of the ears. OBJECTIVE: Ears: External ears are normal. Canals are clear. The tympanic membranes are retracted, especially in the pars flaccida on the left. Audiogram was performed, which reveals a bilateral mixed hearing loss. SRTs possibly 35 dB on the right and 40 on the left, although patient cooperation was not complete. Impedance reveals bilateral type C tympanograms at -310 on the left and -330 on the right. ASSESSMENT: Eustachian tube dysfunction, slowly improving. PLAN: Follow up in 6 weeks or p.r.n. if no improvement, consider tympanostomy and PE tube placement. Electronically Signed by Jensen Moe MD 03/11/2011 10:29 Jensen Moe MD - Jensen Moe MD - DIS Job ID: Doc ID: [id number] Ext Doc ID: [id number] cc: * Jensen Moe MD - 03/02/2011 1218 EDT This office note has been dictated. documented in this encounter Miscellaneous Notes * Scanned Note-Null - [place], [place] - 03/03/2011 0843 EDT documented in this encounter Plan of Treatment Upcoming Encounters Date Type Department Care Team (Late st Contact Info) Description 09/19/2024 14:00 EST Initial consult [facility] Interventional Pain [address] [place] [address] Brigitte Camilo PA-C [address] [facility] [address] [place] [address] documented as of this encounter Visit Diagnoses Diagnosis Unspecified hearing loss- Primary ETD (eustachian tube dysfunction) Dysfunction of Eustachian tube documented in this encounter Discontinued Medications Medication Sig Discontinue Reason Start Date End Da te predniSONE (DELTASONE) 10 mg tablet Take by mouth. Days 1-4 20mg BID Days 5-6 10 mg BID Days 7-8 10mg QD 02/09/2011 03/02/2011 cyclobenzaprine (FLEXERIL) 10 mg tablet Take 10 mg by mouth 3 times daily as needed. 03/02/2011 pregabalin (LYRICA) 50 mg capsule 50 mg. 03/02/2011 documented as of this encounter Historical Medications * This list may reflect changes made after this encounter. Medication Sig Dispensed Refills Start Date End Date metformin (GLUCOPHAGE) 500 mg tablet Take 1,000 mg by mouth 2 times daily with meals. added in this encounter Care Teams Statement Clerk Relationship Specialty Start Date End Date Sharif Rizvi MD [address] [place] [address] PCP - General 02/08/11 documented as of this encounter
--- OUTSIDE RECORDS SUMMARY | 2024-08-20 16:08 | XMS_ITS | Encounter Summary ---
Author Organization [facility] Address [address] [place] [address] Care Team Providers Care Die Cleaner Name Role Phone Arnaud Gutierrez MD Primary Care Provider [phone] Encounter Details Date Type Department Care Team (Late st Contact Info) Description 10/07/2010 Abstract [facility] ENT - [place] [address] [place] [address] Sharif Rizvi MD [address] [place] [id number] Social History Tobacco Use Types Packs/Day Years Used Date Smoking Tobacco: Never Assessed Sex and Gender Information Value Date Recorded Sex Assigned at Not on file Gender Identity Not on file Sexual Orientation Not on file documented as of this encounter Plan of Treatment Upcoming Encounters Date Type Department Care Team (Late st Contact Info) Description 09/19/2024 14:00 EST Initial consult [facility] Interventional Pain [address] [facility] [place] [address] Brigitte Camilo PA-C 62 [facility] [address] [place] [address] documented as of this encounter Visit Diagnoses Not on filedocumented in this encounter Historical Medications * This list may reflect changes made after this encounter. Medication Sig Dispensed Refills Start Date End Date lamoTRIgine (LAMICTAL) 100 mg tablet Take 200 mg by mouth daily. 10/07/2010 HYDROCODONE BIT/ACETAMINOPHEN (VICODIN ORAL) Take by mouth. 5/325 mg BID pregabalin (LYRICA) 50 mg capsule 50 mg. 03/02/2011 cyclobenzaprine (FLEXERIL) 10 mg tablet Take 10 mg by mouth 3 times daily as needed. 03/02/2011 quetiapine (SEROQUEL) 300 mg tablet Take 300 mg by mouth at bedtime. 10/07/2010 04/26/2011 added in this encounter Care Teams Die Cleaner Relationship Specialty Start Date End Date Arnaud Gutierrez MD [address] [place] [address] PCP - General 03/20/09 02/07/11 documented as of this encounter
--- OUTSIDE RECORDS SUMMARY | 2024-08-20 16:08 | XMS_ITS | Encounter Summary ---
Author Organization [facility] Address [address] [place] [address] Care Team Providers Care Electronic Components Assembler Name Role Phone Sharif Rizvi MD Primary Care Provider [phone] Encounter Details Date Type Department Care Team (Late st Contact Info) Description 05/09/2012 Results Only Imaging [facility] [phone] Sharif Rizvi MD [address] [facility] [address] [place], [place] [id number] Social History Tobacco Use Types Packs/Day Years [...] Info) Description 09/19/2024 14:00 EST Initial consult [facility] Interventional Pain [address] [place] [address] Brigitte Camilo PA-C 62 [facility] [address] [place] [address] documented as of this encounter Procedures Procedure Name Priority Date/Time Associated Diagnosis Comments MR CERVICAL SPINE WO CONTRAST 05/24/2012 16:04 EDT documented in this encounter Results * MR CERVICAL SPINE WO CONTRAST (05/24/2012 16:04 EDT) Anatomical Region Laterality Modality Other 05/24/2012 16:0 4 EDT 05/25/2012 14:04 EDT Narrative 05/25/2012 14:04 EDT MRI CERVICAL SPINE WITHOUT CONTRAST May 24, 2012 Indication: Chronic cervical radiculitis status post cervical fusion. Comparison: Cervical spine CT January 19, 2009 and cervical spine MRI December 31, 2008 ?? Technique: Sagittal T1 and T2, axial T2 and sagittal oblique T2 weighted MR images of the cervical spine are obtained. Findings: There has been prior anterior discectomy and hardware fusion at C6-C7. Craniocervical and atlantoaxial alignment are anatomic. There is loss of the normal cervical lordosis without rigo or retrolisthesis appreciated. Vertebral body heights are preserved. Marrow signal intensity is unremarkable. There is disc space narrowing and marginal osteophyte formation at C5-C6 and at C7-T1 consistent with disc degeneration. This has progressed, particularly at the C6 level, since the prior MRI. C2-C3: No disc herniation or spinal stenosis is noted. C3-C4: There is moderate bilateral neuroforaminal stenosis due to uncinate spurring. C4-C5: A broad-based central disc protrusion produces mild central spinal narrowing without cord impingement. There is mild bilateral neuroforaminal narrowing due to uncinate spurring. C5-C6: A right paracentral disc protrusion effaces the anterior CSF space and produces cord flattening to the right of midline. This is new from the prior exam. C6-C7: No high-grade central spinal or neuroforaminal stenosis is noted. C7-T1: There is a small central disc protrusion with mild central spinal narrowing but no cord impingement. There is mild bilateral neuroforaminal narrowing due to uncinate spurring. No abnormal cord signal is appreciated. Impression: 1. Previous anterior discectomy and spinal fusion at C6-C7. 2. Cervical spondylosis. 3. Central disc protrusions at C4-C5 and C7-T1 without associated cord impingement. 4. Right paracentral disc herniation at C5-C6 with mild cord impingement. This finding is new from prior study. 5. Multilevel neural foraminal narrowing most significant on the right and the left at C3-C4 due to uncovertebral spurring. Procedure Note 05/25/2012 MRI CERVICAL SPINE WITHOUT CONTRAST May 24, 2012 Indication: Chronic cervical radiculitis status post cervical fusion. Comparison: Cervical spine CT January 19, 2009 and cervical spine MRI December 31, 2008 Technique: Sagittal T1 and T2, axial T2 and sagittal oblique T2 weighted MR images of the cervical spine are obtained. Findings: There has been prior anterior discectomy and hardware fusion at C6-C7. Craniocervical and atlantoaxial alignment are anatomic. There is loss of the normal cervical lordosis without rigo or retrolisthesis appreciated. Vertebral body heights are preserved. Marrow signal intensity is unremarkable. There is disc space narrowing and marginal osteophyte formation at C5-C6 and at C7-T1 consistent with disc degeneration. This has progressed, particularly at the C6 level, since the prior MRI. C2-C3: No disc herniation or spinal stenosis is noted. C3-C4: There is moderate bilateral neuroforaminal stenosis due to uncinate spurring. C4-C5: A broad-based central disc protrusion produces mild central spinal narrowing without cord impingement. There is mild bilateral neuroforaminal narrowing due to uncinate spurring. C5-C6: A right paracentral disc protrusion effaces the anterior CSF space and produces cord flattening to the right of midline. This is new from the prior exam. C6-C7: No high-grade central spinal or neuroforaminal stenosis is noted. C7-T1: There is a small central disc protrusion with mild central spinal narrowing but no cord impingement. There is mild bilateral neuroforaminal narrowing due to uncinate spurring. No abnormal cord signal is appreciated. Impression: 1. Previous anterior discectomy and spinal fusion at C6-C7. 2. Cervical spondylosis. 3. Central disc protrusions at C4-C5 and C7-T1 without associated cord impingement. 4. Right paracentral disc herniation at C5-C6 with mild cord impingement. This finding is new from prior study. 5. Multilevel neural foraminal narrowing most significant on the right and the left at C3-C4 due to uncovertebral spurring. Sharif Rizvi MD IMG MRI ORDERABLES documented in this encounter Visit Diagnoses Not on filedocumented in this encounter Care Teams Electronic Components Assembler Relationship Specialty Start Date End Date Sharif Rizvi MD [address] [address] PCP - General 02/08/11 documented as of this encounter
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
--- OUTSIDE RECORDS SUMMARY | 2024-08-20 16:08 | XMS_ITS | Encounter Summary ---
Author Organization [facility] Address [address] [place] [address] Care Team Providers Care Sole Tier Name Role Phone Sharif Rizvi MD Primary Care Provider [phone] Encounter Details Date Type Department Care Team (Late st Contact Info) Description 04/26/2011 Phlebotomy Only [facility] [address] [place], [place] [address] [facility]/Woman, Outpatient Oligomenorrhea Social History Tobacco Use Types Packs/Day Years [...] [facility] Interventional Pain [address] [place] [address] Brigitte Camilo PA-C [address] [facility] [address] [place] [address] documented as of this encounter Procedures Procedure Name Priority Date/Time Associated Diagnosis Comments 17 OH-PROGESTERONE Routine 04/26/2011 12 :55 EDT Oligomenorrhea PROLACTIN Routine 04/26/2011 12:55 EDT Oligomenorrhea DHEA SULFATE Routine 04/26/2011 12:55 EDT Oligomenorrhea TESTOSTERONE, TOTAL AND FREE Routine 04/26/2011 12:55 EDT Oligomenorrhea TSH Routine 04/26/2011 12:55 EDT Oligomenorrhea documented in this encounter Results * PROLACTIN (04/26/2011 12:55 EDT) Prolactin 2.7 ng/ml [facility] Comment:Non-: 2.8-29 .2 : 9.7-208.5 Post Menopausal: 1.8-20.3 Blood specimen (specimen) 04/26/2011 12:55 EDT 04/26/2011 13:15 EDT Radha Barnard MD CHEMISTRY & BLOOD GAS ORDERABLES Performing Organization Address [facility] de Phone Number [facility] [address] [place] [address] * (ABNORMAL) TESTOSTERONE, TOTAL AND FREE (04/26/2011 12:55 EDT) Sex Hormone Binding Globulin 7.3 nmol/L [facility] Comment: Reference Range: Females (pre-menopausal): 27.8-146 nmol/L Females (post-menopausal): 12.0-166 nmol/L ?? Testosterone, Total 55 14 - 76 ng/dL [facility] Testosterone, Free 1.8(H) 0.1 - 1.3 ng/dl [facility] Comment:Test not recommended in patients with plasma protein abnormalities. Blood specimen (specimen) 04/26/2011 12:55 EDT 04/26/2011 13:15 EDT Radha Barnard MD CHEMISTRY & BLOOD GAS ORDERABLES Performing Organization Address [facility] Co de Phone Number [facility] [address] [place] [address] * TSH (04/26/2011 12:55 EDT) TSH 2.03 0.35 - 5.00 uIU/ml [facility] Blood specimen (specimen) 04/26/2011 12:55 EDT 04/26/2011 13:15 EDT Radha Barnard MD CHEMISTRY & BLOOD GAS ORDERABLES Performing Organization Address [facility] de Phone Number [facility] [address] [place] [address] * DHEA SULFATE (04/26/2011 12:55 EDT) Pathologist [facility] DHEA Sulfate 225 18 - 391 ug/dl [facility] Comment:Note new method/refe rence range in use 02/04/2011. Blood specimen (specimen) 04/26/2011 12:55 EDT 04/26/2011 13:15 EDT Radha Barnard MD CHEMISTRY & BLOOD GAS ORDERABLES Performing Organization Address [facility] de Phone Number [facility] [address] [place] [address] * 17 OH-PROGESTERONE (04/26/2011 12:55 EDT) 17-Hydroxypro gesterone <40Unit: ng/dL -- REFERENCE VALUE -- ? < 80 (Follicular) ? <285 (Luteal) ? Performed or Referred by: [facility] Dpt of Lab Med and Path, [address] ? [facility], [place] [address], Lab Dir: Kelechi Banerjee III, ? MD ? [facility] Blood specimen (specimen) 04/26/2011 12:55 EDT 04/26/2011 13:15 EDT Radha Barnard MD CHEMISTRY & BLOOD GAS ORDERABLES Performing Organization Address City/State/[facility] Co de Phone Number [facility] [address] [place] [address] documented in this encounter Visit Diagnoses Diagnosis Oligomenorrhea Scanty or infrequent menstruation documented in this encounter Care Teams Sole Tier Relationship Specialty Start Date End Date Sharif Rizvi MD [address] [facility] [address] [place] [address] PCP - General 02/08/11 documented as of this encounter
--- OUTSIDE RECORDS SUMMARY | 2024-08-20 16:08 | XMS_ITS | Encounter Summary ---
Author Organization [facility] Address [address] [place] [address] Care Team Providers Care Electronic Gluing Machine Operator Name Role Phone Sharif Rizvi MD Primary Care Provider [phone] Encounter Details Date Type Department Care Team (Late st Contact Info) Description 02/08/2018 Results Only [facility] [phone] Marylu Lobato, SADAF [address] [place] [address] [place] [address] Social History Tobacco Use Types Packs/Day Years [...] consult [facility] Interventional Pain [address] [place] [address] Brigitte Camilo PA-C [address] [facility] [address] [place] [address] documented as of this encounter Procedures Procedure Name Priority Date/Time Associated Diagnosis Comments PAP TEST- RESULT ONLY Routine 02/08/2018 0:00 EDT documented in this encounter Results * PAP TEST- RESULT ONLY (02/08/2018 0:00 EDT) Pathology Report: CYTOPATHOLOGY REPORT Reports generated via electronic interface contain original data; however they are lacking the format of the original report. Caution should be taken when reading/interpreti ng unformatted reports. Name: ? CHIU CHALINO ? Accession #: ? [id number] ? : ? 1985 (Age: 33) ??F ?Collect Date: ? 02/08/2018 ? Location: ? [facility] ? Receive Date: ? 02/12/2018 ? Provider: MARYLU LOBATO CN Copy to: ? Final Report SPECIMEN ADEQUACY ? Satisfactory for Evaluation - transformation zone component present GENERAL CATEGORIZATION ? Negative for Intraepithelial Lesion or Malignancy ?? Last Menstrual Period: 11/16 Specimen/Source: ??Pap Test, Cervix/Endocervix, ThinPrep Imaging System with manual evaluation Document reviewed and electronically signed by: ? Lori Dinh, WANDER(ASCP)(IAC) ? Report ??Date: 02/20/2018 11:24 HPV with Pap Test ? Date Ordered: ? 02/20/2018 ? Status: ?? Signed Out ?Date Complete: ? 02/21/2018 ? By: ??System Interface ? Date Reported: ? 02/21/2018 ? Interpretation RESULT: Negative for HPV. No E6 or E7 mRNA is detected from HPV types 16,18,31,33,35, 39,45,51,52,56,58, 59,66, and 68 by billing and accounting staff assistant mediated amplification. Comments Document reviewed and electronically signed by: ? System Interface ? Report date: 02/21/2018 By the signature above, the attending physician certifies that he/she has personally conducted a gross and/or microscopic examination of the described specimens and rendered or confirmed the above diagnosis. End of Report [facility] 02/08/2018 02/12/2018 Maryul Aman [facility] PATHOLOGY ORDERABLES [facility] [address] [place] [address] documented in this encounter Visit Diagnoses Not on filedocumented in this encounter Care Teams Electronic Gluing Machine Operator Relationship Specialty Start Date End Date Sharif Rizvi MD [address] [place] [address] PCP - General 02/08/11 documented as of this encounter
--- OUTSIDE RECORDS SUMMARY | 2024-08-20 16:08 | XMS_ITS | Encounter Summary ---
Author Organization [facility] Address [address] [place] [address] Care Team Providers Care Treasury Specialist Name Role Phone Sharif Rizvi MD Primary Care Provider [phone] Reason for Visit * Reason Comments Obesity intro Encounter Details Date Type Department Care Team (Late st Contact Info) Description 02/09/2016 9:00 EDT Office Visit [facility] Bariatric Surgery [address] [place] [address] Unknown, Provider, Intro, Class Morbid obesity due to excess calories (CMS-HCC) (HCC-CMS) (Primary Dx) Social History Tobacco Use Types [...] as of this encounter Progress Notes * Lala Montilla RN - 02/10/2016 1342 EDT Claudia Craft 1985 arrived for the Metabolic and Bariatric Surgery Program Introductory Class.All program requirements, surgical procedures including risks and benefits, and insurance approval process reviewed in detail. Power point presentation, verbal instruction, and handouts provided during the class. At the end ofthe class the patient is asked to complete the second part of the health questionnaire and are provided food logs and insurance benefit verification form to complete. Patient is advised when they come for the psychological evaluation they must bring the completed food diary as well as the insurancebenefit verification form. Claudia Craft was given an appointment with Lizabeth Mckinnon the program psychologist which is the next step in the Metabolic and Bariatric Surgery Program. Electronically signed by Lala Montilla RN CBN documented in this encounter Plan of Treatment Upcoming Encounters Date Type Department Care Team (Late st Contact Info) Description 09/19/2024 14:00 EST Initial consult [facility] Interventional Pain [address] [facility] [place], [place] [phone] Brigitte Camilo PA-C [address] [facility] [address] [place] [phone] documented as of this encounter Visit Diagnoses Diagnosis Morbid obesity due to excess calories (HCC-CMS)- Primary documented in this encounter Care Teams Treasury Specialist Relationship Specialty Start Date End Date Sharif Rizvi MD [address] [address] PCP - General 02/08/11 documented as of this encounter
--- OUTSIDE RECORDS SUMMARY | 2024-08-20 16:08 | XMS_ITS | Encounter Summary ---
Author Organization [facility] Address [address] [place] [address] Care Team Providers Care Senior Cost Estimator Name Role Phone Sharif Rizvi MD Primary Care Provider [phone] Reason for Visit * Reason Comments Post-OP Follow Up tube Encounter Details Date Type Department Care Team (Late st Contact Info) Description 04/27/2011 10:30 EDT Office Visit [facility] ENT - [address] [address] Unknown, MD Les Jensen Moe MD [address] [place] [address] [address] [place] [phone] ETD (eustachian tube dysfunction) (Primary Dx) Social History Tobacco Use Types [...] Progress Notes * Jensen Moe MD - 04/28/2011 1116 EDT [place] [facility] PROGRESS/FOLLOWUP NOTE - 04/27/2011 Follow up eustachian tube dysfunction, left tympanostomy, PE tube placement. SUBJECTIVE: The patient is feeling better and hearing better in the left ear, now wants a tube in the right ear. OBJECTIVE: Binocular otomicroscopy was performed. This reveals the left PE tube to be in place and patent with a well aerated middle-ear space. The right external auditory canal is also clear. The tympanic membrane appears to be normal and screening tympanometry reveals a type A tympanogram. ASSESSMENT: Resolved right middle ear fluid and a patent left PE tube. PLAN: Follow up with ENT in 3 months or p.r.n. May consider right tympanostomy and PE tube placement at that time if patient has recurrent serous otitis media or worsening of eustachian tube function. Electronically Signed by Jensen Moe MD 04/28/2011 11:16 Jensen Moe MD - Jensen Moe MD - Job ID: SM Doc ID: [id number] Ext Doc ID: [id number] cc: * Jensen Moe MD - 04/27/2011 1026 EDT This office note has been dictated. documented in this encounter Plan of Treatment Upcoming Encounters Date Type Department Care Team (Late st Contact Info) Description 09/19/2024 14:00 EST Initial consult [facility] Interventional Pain [address] [facility] [place] [address] Brigitte Camilo PA-C [address] [facility] [address] [place] [address] documented as of this encounter Visit Diagnoses Diagnosis ETD (eustachian tube dysfunction)- Primary Dysfunction of Eustachian tube documented in this encounter Care Teams Senior Cost Estimator Relationship Specialty Start Date End Date Sharif Rizvi MD [address] [facility] 6 [place] [address] PCP - General 02/08/11 documented as of this encounter
--- OUTSIDE RECORDS SUMMARY | 2024-08-20 16:08 | XMS_ITS | Encounter Summary ---
Author Organization [facility] Address [address] [place] [address] Care Team Providers Care Hospital Medical Assistant Name Role Phone Sharif Rizvi MD Primary Care Provider [phone] Reason for Visit * Reason Onset Date Comments Appointment Related 04/11/2016 Needs to can lyssa today's appointment and rebook. Encounter Details Date Type Department Care Team (Late st Contact Info) Description 04/11/2016 Telephone [facility] Bariatric Surgery - [address] [id number] Melody Rose MD [address] [place] [phone] Appointment Related (Needs to cancel today's appointment and rebook.) Social History Tobacco Use Types Packs/Day Years [...] encounter Miscellaneous Notes * Telephone Encounter - Kayla Mcdowell - 04/11/2016 0816 EDT Returned patient's call and rsc appt documented in this encounter Plan of Treatment Upcoming Encounters Date Type Department Care Team (Late st Contact Info) Description 09/19/2024 14:00 EST Initial consult [facility] Interventional Pain [address] [place] [address] Brigitte Camilo PA-C [address] [facility] [address] [place] [address] documented as of this encounter Visit Diagnoses Not on filedocumented in this encounter Care Teams Hospital Medical Assistant Relationship Specialty Start Date End Date Sharif Rizvi MD [address] [facility] 6 [place] [address] PCP - General 02/08/11 documented as of this encounter
--- OUTSIDE RECORDS SUMMARY | 2024-08-20 16:08 | XMS_ITS | Encounter Summary ---
Author Organization [facility] Address [address] [place] [address] Care Team Providers Care Freezing Room Worker Name Role Phone Sharif Rizvi MD Primary Care Provider [phone] Reason for Visit * Reason Onset Date Comments Appointment Related 09/12/2016 Encounter Details Date Type Department Care Team (Late st Contact Info) Description 09/12/2016 Telephone [facility] [address] [place], [place] [phone] Melody Rose MD [address] [place] [phone] Appointment Related Social History Tobacco Use Types Packs/Day Years [...] encounter Miscellaneous Notes * Telephone Encounter - Mary Waterman - 09/12/2016 0750 EST Canceling appointment today with Dr. Aime Rose @ 9AM due to waking up ill.Pt will call to reschedule documented in this encounter Plan of Treatment Upcoming Encounters Date Type Department Care Team (Late st Contact Info) Description 09/19/2024 14:00 EST Initial consult [facility] Interventional Pain [address] [place] [address] Brigitte Camilo PA-C [address] [facility] [address] [place] [address] documented as of this encounter Visit Diagnoses Not on filedocumented in this encounter Care Teams Freezing Room Worker Relationship Specialty Start Date End Date Sharif Rizvi MD [address] [facility] [address] [place], [place] [id number] PCP - General 02/08/11 documented as of this encounter
--- OUTSIDE RECORDS SUMMARY | 2024-08-20 16:08 | XMS_ITS | Encounter Summary ---
Author Organization [facility] Address [address] [place] [address] Care Team Providers Care Box Finisher Name Role Phone Sharif Rizvi MD Primary Care Provider [phone] Reason for Visit * Reason Onset Date Comments Appointment Related 01/19/2015 Pt calling t o schedule her appointment for the informational meeting. Encounter Details Date Type Department Care Team (Late st Contact Info) Description 01/19/2015 Telephone [place] [facility] - [address] [place] [address] , General Surgery [facility], [address] [place] [address] Appointment Related (Pt calling to schedule her appointment for the informational meeting.) Social History Tobacco Use Types Packs/Day Years [...] encounter Miscellaneous Notes * Telephone Encounter - Michelle Bolden - 01/20/2015 1242 EDT S/w Claudia she returned her health questionnaire 07/2013 and will need to complete new questionnaire.Confirmed her address and mailed a new packet of informaiton documented in this encounter Plan of Treatment Upcoming Encounters Date Type Department Care Team (Late st Contact Info) Description 09/19/2024 14:[address] [facility] Interventional Pain [address] [place] [address] Brigitte Camilo PA-C 62 [facility] [address] [place] [address] documented as of this encounter Visit Diagnoses Not on filedocumented in this encounter Care Teams Box Finisher Relationship Specialty Start Date End Date Sharif Rizvi MD [address] [facility] 6 [place] [address] PCP - General 02/08/11 documented as of this encounter
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
--- OUTSIDE RECORDS SUMMARY | 2024-08-20 16:08 | XMS_ITS | Encounter Summary ---
Author Organization [facility] Address [address] [place] [address] Care Team Providers Care Environmental Field Office Manager Name Role Phone Sharif Rizvi MD Primary Care Provider [phone] Reason for Visit * Reason Comments Ear Fullness bilat ear pressure 5 years constant with moderate pain forehead pressure ears pop with dizziness.treated for ear inf most of life worse with cigarette smoke neg ct scan of sinus Encounter Details Date Type Department Care Team (Latest Contact Info) Description 02/09/2011 9:50 EDT Office Visit [facility] ENT - [address] [address] Unknown, ProviderMD Jensen Moe MD [address] [place] [address] [address] [place] [address] Hearing loss, sensorineural (Primary Dx); Chronic serous OM (otitis media); Allergic rhinitis, cause unspecified; Deviated nasal septum Social History Tobacco Use Types Packs/Day Years [...] Sign Reading Time Taken Comments Blood Pressure 130/102 02/09/2011 1001 EDT Pulse 94 02/09/2011 1001 EDT Temperature - - Respiratory Rate - - Oxygen Saturation - - Inhaled Oxygen Concentration - - Weight 104.3 kg (230 lb) 02/09/2011 1001 EDT Height 152.4 cm (5') 02/09/2011 1001 EDT Body Mass Index 44.92 02/09/2011 1001 EDT documented in this encounter Ordered Prescriptions Prescription Sig Dispensed Refills Start Date End Da te predniSONE (DELTASONE) 10 mg tablet Take by mouth. Days 1-4 20mg BID Days 5-6 10 mg BID Days 7-8 10mg QD 28 Tab 0 02/09/2011 03/02/2011 documented in this encounter Progress Notes * Jensen Moe MD - 02/09/2011 1044 EDT This office note has been dictated. documented in this encounter Consult Notes * Jensen Moe MD - 02/10/2011 1650 EDT [facility] - 02/09/2011 Sharif Rizvi MD [facility] [address] [place] [address] Rizvi: This is a consult from Sharif Rizvi in [place] for evaluation of sinusitis. History of present illness: A 26-year-old female with a 5-year history of intermittent facial pain and headache mostly around the forehead and around the eyes. Symptoms are described as severe. It occurs every other week, lasts for approximately a week at a time, worse in the winter. Worse first thing in the morning. Improves with antibiotics. There is a family history of similar problems in all of her family including both parents. She does have a history of environmental allergies. She complains mainly of pain and pressure, occasional fever but no nasal discharge. She also complains of a 2-week history of ear pain and a long history of bilateral hearing loss. Past medical history: Significant for fibromyalgia, bipolar disorder, obesity and asthma. Previous surgeries include spine surgery. Allergies: She has no known drug allergies. Current medications: Include Vicodin, Elavil, Flexeril, Flonase, Lamictal and Seroquel. Family history is otherwise noncontributory. Social history: The patient is a nonsmoker. Review of systems is significant for hearing loss, ear pain, nasal congestion, blurred vision, muscle pain, joint pain, easy bruisability. Otherwise negative for multiple system reviews. Objective: General: Well-developed, well-nourished, cooperative adult female in no acute distress. Normal voice. Height 60 inches, weight 230. Blood pressure 130/102, pulse 94. Pain level of 9 in theears. Face is normal without lesions. No tenderness to palpation over the sinuses. Salivary glands are normal. Facial strength is symmetric. Eye exam is normal. Ears: External ears are normal. Canalsare clear. The tympanic membranes are intact. Binocular otomicroscopy was performed. This reveals retraction of the left pars flaccida and dullness and fullness of the pars tensa with evidence of middle ear fluid, especially on the left, but no acute infection. An audiogram was performed, which reveals a bilateral, mostly sensorineural hearing loss with SRTs of 35 dB on the right, 40 on the left.Impedance testing shows bilateral flat or type B tympanograms. Nose: Nasal dorsum is midline; the airway is patent. There is some crusting anteriorly on the inferior turbinates. Oral cavity is clear.Posterior pharynx reveals 2+ tonsils. Neck: No pathologic lymphadenopathy. Trachea is midline. Thyroid is normal. Chest is clear to auscultation. Heart: Regular rate and rhythm. Procedure: Fiberoptic endoscopy was performed with topical anesthesia. This reveals a mild nasoseptal deviation. Both middle meatus are clear, but there is mucous stranding and mild inflammation consistent with allergic rhinitis. Nasopharynx reveals adenoidal tissue present, but nonobstructing. Thebase of tongue, epiglottis, vallecula, piriform sinuses, false vocal cords and true vocal cords arewithin normal limits with good bilateral true vocal cord motion. Impression: Allergic rhinitis, nasoseptal deviation, adenoid hypertrophy, serous otitis media and mixed hearing loss. Recommendation: Trial of a short course of oral prednisone. Recommend allergy evaluation and treatment. Continue with steroid nasal spray. Follow up in 3 months or p.r.n. If fluid remains persistent,consider tympanostomy and PE tube placement. Results of previous sinus CT shows normal well-aeratedparanasal sinuses without evidence of sinus disease. Sincerely, Electronically Signed by Jensen Moe MD 02/10/2011 16:50 Jensen Moe MD - Jensen Moe [place] [facility] [place]: SM Doc ID: [id number] Ext Doc ID: [id number] cc: Sharif Rizvi MD documented in this encounter Miscellaneous Notes * Scanned Note-Null - Inpatient, Physician - 02/10/2011 1122 EDT documented in this encounter Plan of Treatment Upcoming Encounters Date Type Department Care Team (Late st Contact Info) Description 09/19/2024 14:00 EST Initial consult [facility] Interventional Pain [address] [facility] [place], [place] [phone] Brigitte Camilo PA-C [address] [facility] [address] [place] [phone] documented as of this encounter Visit Diagnoses Diagnosis Hearing loss, sensorineural- Primary Sensorineural hearing loss, unspecified Chronic serous OM (otitis media) Simple or unspecified chronic serous otitis media Allergic rhinitis, cause unspecified Deviated nasal septum documented in this encounter Historical Medications * This list may reflect changes made after this encounter. Medication Sig Dispensed Refills Start Date End Date fluticasone (FLONASE) 50 mcg/Actuation nasal spray 1 [place] by Nasal route daily. amitriptyline (ELAVIL) 100 mg tablet Take 100 mg by mouth daily. 03/30/2020 added in this encounter Care Teams Environmental Field Office Manager Relationship Specialty Start Date End Date Sharif Rizvi MD [address] [facility] [address] [place] [address] PCP - General 02/08/11 documented as of this encounter
--- OUTSIDE RECORDS SUMMARY | 2024-08-20 16:08 | XMS_ITS | Encounter Summary ---
Author Organization [facility] Address [address] [place] [address] Care Team Providers Care Chronic Specialist Name Role Phone Sharif Rizvi MD Primary Care Provider [phone] Encounter Details Date Type Department Care Team (Latest Contact Info) Description 05/24/2012 15:00 EDT - 05/24/2012 23:59 EDT Hospital Encounter [facility] [place] [address] Sharif Rizvi MD [address] [place] [phone] Discharge Disposition: Home or Self Care Social [...] fluticasone (FLONASE) 50 mcg/Actuation nasal spray 1 [place] by Nasal route daily. HYDROCODONE BIT/ACETAMINOPHEN (VICODIN ORAL) Take by mouth. 5/325 mg BID lamoTRIgine (LAMICTAL) 100 mg tablet Take 200 mg by mouth daily. 10/07/2010 metformin (GLUCOPHAGE) 500 mg tablet Take 1,000 mg by mouth 2 times daily with meals. amitriptyline (ELAVIL) 100 mg tablet Take 100 mg by mouth daily. 03/30/2020 glipiZIDE (GLUCOTROL) 2.5 mg CR tablet Take 2.5 mg by mouth daily. 03/30/2020 hydrochlorothiazide (HYDRODIURIL) 25 mg tabletIndications:hype rtension Take 25 mg by mouth daily. Indications: HYPERTENSION 03/30/2020 medroxyPROGESTERone (PROVERA) 10 mg tablet Take 1 Tab by mouth daily. For 10 days starting at the beginning of each month. 30 Tab 4 05/31/2011 03/30/2020 zolpidem (AMBIEN) 10 mg tabletIndications:inso mnia Take 10 mg by mouth at bedtime as needed. Indications: INSOMNIA 03/30/2020 documented as of this encounter Discharge Disposition Disposition Code Departure Means Destination Home or Self Jail documented in this encounter Plan of Treatment Upcoming Encounters Date Type Department Care Team (Late st Contact Info) Description 09/19/2024 14:00 EST Initial consult [facility] Interventional Pain [address] [facility] [place], [place] [phone] Brigitte Camilo PA-C [address] [facility] [address] [place] [address] documented as of this encounter Visit Diagnoses Not on filedocumented in this encounter Care Teams Chronic Specialist Relationship Specialty Start Date End Date Sharif Rizvi MD [address] [facility] 6 [place] [address] PCP - General 02/08/11 documented as of this encounter
--- OUTSIDE RECORDS SUMMARY | 2024-08-20 16:08 | XMS_ITS | Encounter Summary ---
Author Organization [facility] Address [address] [place] [address] Care Team Providers Care French Professor Name Role Phone Sharif Rizvi MD Primary Care Provider [phone] Reason for Visit * Reason Onset Date Comments No Show 01/27/2016 Encounter Details Date Type Department Care Team (Late st Contact Info) Description 01/27/2016 Telephone [facility] OBGYN Services - [address] [phone] Hope Ibarra MD [address] [place] [address], [address] [place] [address] No Show Social History Tobacco Use Types Packs/Day Years [...] encounter Miscellaneous Notes * Telephone Encounter - Alida Yarbrough - 01/27/2016 1612 EDT 01/27/16: PT NO SHOWED her 2:[address] Ibarra today. A VM was left for the PT to contact us if she would like to reschedule her appointment. Alida Yarbrough documented in this encounter Plan of Treatment Upcoming Encounters Date Type Department Care Team (Late st Contact Info) Description 09/19/2024 14:00 EST Initial consult [facility] Interventional Pain [address] [place] [address] Brigitte Camilo PA-C [address] [facility] [address] [place] [address] documented as of this encounter Visit Diagnoses Not on filedocumented in this encounter Care Teams French Professor Relationship Specialty Start Date End Date Sharif Rizvi MD [address] [facility] 6 [place] [address] PCP - General 02/08/11 documented as of this encounter
--- OUTSIDE RECORDS SUMMARY | 2024-08-20 16:08 | XMS_ITS | Encounter Summary ---
Author Organization [facility] Address [address] [place] [address] Care Team Providers Care Casting Associate Name Role Phone Sharif Rizvi MD Primary Care Provider [phone] Reason for Visit * Reason Onset Date Comments No Show 09/02/2016 Encounter Details Date Type Department Care Team (Late st Contact Info) Description 09/02/2016 Telephone [facility] OBGYN Services - [facility] [place] [address] [place] [address] Lebron Yao MD [address] [place] [phone] No Show Social History Tobacco Use Types [...] encounter Miscellaneous Notes * Telephone Encounter - Sophie Parks - 09/02/2016 1602 EDT Called patient's home number. Voice mailbox was full, could not leave message. documented in this encounter Plan of Treatment Upcoming Encounters Date Type Department Care Team (Late st Contact Info) Description 09/19/2024 14:00 EST Initial consult [facility] Interventional Pain [address] [place] [address] Brigitte Camilo PA-C [address] [facility] [address] [place] [address] documented as of this encounter Visit Diagnoses Not on filedocumented in this encounter Care Teams Casting Associate Relationship Specialty Start Date End Date Sharif Rizvi MD [address] [place] [address] PCP - General 02/08/11 documented as of this encounter
--- OUTSIDE RECORDS SUMMARY | 2024-08-20 16:08 | XMS_ITS | Encounter Summary ---
Author Organization [facility] Address [address] [place] [address] Care Team Providers Care Visual Specialist Name Role Phone Sharif Rizvi MD Primary Care Provider [phone] Reason for Visit * Reason Onset Date Comments Other 03/04/2016 Encounter Details Date Type Department Care Team (Late st Contact Info) Description 03/04/2016 Telephone [facility] Bariatric Surgery - [address] [phone] Melody Rose MD [address] [place] [phone] Other Social History Tobacco Use Types Packs/Day [...] encounter Miscellaneous Notes * Telephone Encounter - Ghazala Garcia - 03/04/2016 1309 EDT I called and spoke with Claudia to remind her to watch REBECCA's before her appointment on 03/07. She said she would have them done documented in this encounter Plan of Treatment Upcoming Encounters Date Type Department Care Team (Late st Contact Info) Description 09/19/2024 14:00 EST Initial consult [facility] Interventional Pain [address] [place] [address] Brigitte Camilo PA-C [address] [facility] [address] [place] [address] documented as of this encounter Visit Diagnoses Not on filedocumented in this encounter Care Teams Visual Specialist Relationship Specialty Start Date End Date Sharif Rizvi MD [address] [facility] 6 [place], [place] [address] PCP - General 02/08/11 documented as of this encounter
--- OUTSIDE RECORDS SUMMARY | 2024-08-20 16:08 | XMS_ITS | Encounter Summary ---
Author Organization [facility] Address [address] [place] [address] Care Team Providers Care Economic Manager Name Role Phone Sharif Rizvi MD Primary Care Provider [phone] Reason for Visit * Reason Comments Infertility follow up from visit. Pelvic Pain since last week Encounter Details Date Type Department Care Team (Late st Contact Info) Description 05/31/2011 13:45 EDT Office Visit [facility] - [address] [address] Radha Barnard MD [address] [place], [place] [phone] Oligomenorrhea; Anovular menstruation Social History Tobacco Use Types Packs/Day Years [...] Sign Reading Time Taken Comments Blood Pressure 122/88 05/31/2011 1325 EDT Pulse - - Temperature - - Respiratory Rate - - Oxygen Saturation - - Inhaled Oxygen Concentration - - Weight - - Height - - Body Mass Index - - documented in this encounter Ordered Prescriptions Prescription Sig Dispensed Refills Start Date End Da te medroxyPROGESTERone (PROVERA) 10 mg tablet Take 1 Tab by mouth daily. For 10 days starting at the beginning of each month. 30 Tab 4 05/31/2011 03/30/2020 documented in this encounter Progress Notes * Debbie Vaughn MD - 05/31/2011 1402 EDT CC: F/u lab results S: Patient presents to discuss her recent lab results and ongoing problems with irregular menses. She reports that she has lost 18 lbs since she was last seen here and was subsequently taken off the glipizide as her recent A1C was 6.3. She has not had any bleeding since her last very heavy menses 2months ago except for a small amount of spotting last evening. She is reporting some LLQ discomfort that improves with bowel movements, but otherwise is doing okay. Her partner does not have the financial abilities at this time to have a semen analysis and she is not as interested in fertility as she is in having more normal periods. O: BP 122/88 LMP 02/10/2011 Gen: Well-appearing, NAD Lab results reviewed and wnl. A/P: Ms. Craft is a 26 y.o. G0 who presents to follow-up oligomenorrhea and discuss further treatment options. We discussed her normal lab results including thyroid function, prolactin, testosterone and DHEA, 17-OHP; ruling out thyroid dysfunction, hyperprolactinemia, congenital adrenal hyperplasia, and PCOS as the cause of her oligomenorrhea and anovulation. Her symptoms are most consistent with metabolic syndrome. Encouraged ongoing weight loss and improvement in her general health. *Oligomenorrhea: Discussed options of regulating her menstrual cycle including OCP's and progestin every month. Given the patient's previous difficulties with OCP's, she would like to try the proverafor 10 days at the beginning of each month to regulate her cycles. Advised her that the first few months will likely be heavier periods but they should lighten up with ongoing use of the provera. *Fertility: Discussed ovulation induction with clomid should she desire fertility. She will readdress this when she and her partner are more interested. *Pelvic pain: Appears to be mostly related to her bowels versus ovarian cyst rupture. Advised patient to try ibuprofen as needed for ongoing discomfort. She will follow-up as needed for ongoing symptoms or fertility desires. Patient seen and d/w Dr. Barnard. Debbie Vaughn MD 05/31/2011 14:20 Attestation statement: I saw and examined the patient with the resident/fellow. I agree with the findings and plan of care documented in the resident's/fellow's note. documented in this encounter Plan of Treatment Upcoming Encounters Date Type Department Care Team (Late st Contact Info) Description 09/19/2024 14:[address] [facility] Interventional Pain [address] [place], [place] [phone] Brigitte Camilo PA-C [address] [place] [address] documented as of this encounter Visit Diagnoses Diagnosis Oligomenorrhea Scanty or infrequent menstruation Anovular menstruation Female infertility associated with anovulation documented in this encounter Care Teams Economic Manager Relationship Specialty Start Date End Date Sharif Rizvi MD [address] [facility] 6 [place] [address] PCP - General 02/08/11 documented as of this encounter
--- OUTSIDE RECORDS SUMMARY | 2024-08-20 16:08 | XMS_ITS | Encounter Summary ---
Author Organization [facility] Address [address] [place] [address] Care Team Providers Care Big Data Developer Name Role Phone Sharif Rizvi MD Primary Care Provider Reason for Visit * Reason Comments Follow-up ears plugged Encounter Details Date Type Department Care Team (Late st Contact Info) Description 04/13/2011 11:10 EDT Office Visit [facility] ENT [address] [address] Unknown, ProviderMD Jensen Moe MD [address] [place] [address] [address] [place] [address] Unspecified hearing loss (Primary Dx); Chronic serous OM (otitis media); ETD (eustachian tube dysfunction) Social History Tobacco [...] Progress Notes * Jensen Moe MD - 04/20/2011 3478 EDT [facility] PROGRESS/FOLLOWUP NOTE - 04/13/2011 REASON FOR VISIT: Followup chronic serous otitis media. SUBJECTIVE: The patient continues to complain of ear fullness, plugging and hearing loss bilaterally. No improvement with steroids. OBJECTIVE: Binocular otomicroscopy was performed and this reveals retraction of the pars flaccida on the left and meniscus fluid levels on the right. Audiogram was performed, which reveals bilateral hearing loss. Tympanometry reveals a flat type B tympanogram on the left and -360 on the right, alsoflat. IMPRESSION: Bilateral chronic serous otitis media, eustachian tube dysfunction and hearing loss. PLAN: Tympanostomy and PE tube placement. Informed consent. The procedure along with the possible risks, complications, alternatives, and aims were discussed in detail with the patient who understands and agrees with the procedure. PROCEDURE NOTE: The patient is placed in a supine position, given adequate topical anesthesia. Using the operating microscope and microinstruments a radial tympanostomy is made in the inferior aspectof the tympanic membrane. The middle ear space was suctioned and an Activent Jd PE tube was placed into position. Antibiotic drops were instilled. The patient tolerated the procedure well with nocomplications. Follow up with ENT in 3 months or p.r.n. The patient may return sooner if she wishes a tube for theright ear. Electronically Signed by Jensen Moe MD 04/20/2011 15:35 Jensen Moe MD - Jensen Moe MD - Job ID: SM Doc ID: [id number] Ext Doc ID: [id number] cc: * Jensen Moe MD - 04/13/2011 1216 EDT This office note has been dictated. documented in this encounter Miscellaneous Notes * Scanned Note-Null - Jeffrey, Ebd Special Education Teacher - 04/14/2011 1502 EDT documented in this encounter Plan of Treatment Upcoming Encounters Date Type Department Care Team (Late st Contact Info) Description 09/19/2024 14:00 EST Initial consult [facility] Interventional Pain [address] [place], [place] [phone] Brigitte Camilo PA-C [address] [facility] [address] [place] [address] documented as of this encounter Visit Diagnoses Diagnosis Unspecified hearing loss- Primary Chronic serous OM (otitis media) Simple or unspecified chronic serous otitis media ETD (eustachian tube dysfunction) Dysfunction of Eustachian tube documented in this encounter Historical Medications * This list may reflect changes made after this encounter. Medication Sig Dispensed Refills Start Date End Date GLIPIZIDE ORAL Take by mouth. 04/26/2011 added in this encounter Care Teams Big Data Developer Relationship Specialty Start Date End Date Sharif Rizvi MD [address] [place] [address] PCP - General 02/08/11 documented as of this encounter
--- OUTSIDE RECORDS SUMMARY | 2024-08-20 16:09 | XMS_ITS | Encounter Summary ---
Author Organization [facility] Address [address] [place] [address] Care Team Providers Care Transitional Studies Instructor Name Role Phone Unavailable Primary Care Provider Unavailabl e Encounter Details Date Type Department Care Team (Late st Contact Info) Description 01/19/2009 16:54 EDT Hospital Encounter [facility] [address] [place] [address] Royer Loza PA-C [address] [facility] [place] [address] Discharge Disposition: Auto Discharge Social History Tobacco Use Types Packs/Day Years Used Date Smoking Tobacco: Never Assessed Sex and Gender Information Value Date Recorded Sex Assigned at Not on file Gender Identity Not on file Sexual Orientation Not on file documented as of this encounter Discharge Disposition Disposition Code Departure Means Destination Auto Discharge documented in this encounter Plan of Treatment Upcoming Encounters Date Type Department Care Team (Late st Contact Info) Description 09/19/2024 14:00 EST Initial consult [facility] Interventional Pain [address] [place] [address] Brigitte Camilo PA-C [address] [facility] [address] [place] [address] documented as of this encounter Procedures Procedure Name Priority Date/Time Associated Diagnosis Comments CT CERVICAL SPINE WO CONTRAST 01/19/2009 17:26 EDT documented in this encounter Results * CT CERVICAL SPINE WO CONTRAST (01/19/2009 17:26 EDT) Anatomical Region Laterality Modality Other 01/19/2009 17:2 6 EDT Narrative 02/24/2009 3:13 EDT Neck pain Cervical Spine CT without contrast Clinical indications: neck pain and prior C6-C7 anterior discectomy and fusion Technique: Multiple contiguous axial sections were taken through the cervical spine followed by sagittal and coronal reformations. Comparison is made to prior cervical spine MR study from 31 December 2008 and prior plain film radiographs from 10 December 2008. Findings: There is a radiopaque anterior cortical screw-plate fixation device in good position and consistent with prior discectomy and fusion at C6-C7 level. There is interbody bone graft across the C6-C7 disc space level with incomplete fusion maturation currently. Patient's head is held in slight flexion. There is no obvious abnormality of anatomic alignment on the sagittal reformations. On the coronal reformations, TMJ is unremarkable bilaterally. The lateral masses of C1 align normally with C2 and occipital condyle appears normal. The other lateral masses also demonstrate normal alignment on the coronal reformations. On the axial images, no lucent fracture line is identified. There is a right lingual tonsil calcification present. On transaxial imaging, at the C2-C3 level, no focal herniation or foraminal stenosis is present. At the C3-C4 level, no focal herniation is present. There does not appear to be any significant foraminal stenosis at this level.There is a mild component of foraminal narrowing at that level, which may relate to some degree of early uncovertebral spurring. At the C4-C5 level, there appears be a small right paracentral herniation present. There does not appear to be significant degree of foraminal stenosis at this level. At the C5-C6 level, the paracentral disc herniation seen on recent MR is less well discerned, but present at the C5-C6 level probably central and slightly left-sided. At this level, there is no significant foraminal stenosis. At the C6-C7 level, there has been prior discectomy and fusion, but no significant foraminal stenosis is identified. On soft tissue windows, subcentimeter lymph nodes are seen along levels IB in submandibular triangle level and level II along jugular chain, but these do not meet size criteria for enlargement with many of them demonstrating fatty chano and are indicative of benign lymph nodes, and there are similar benign-appearing lymph nodes in the parotid gland bilaterally, right more than left. On coronal reformations, TMJ appears normal. Impression: 1. Prior C6-C7 anterior discectomy and fusion with no evidence of hardware failure with incomplete fusion maturation across disc space level. 2. Early degenerative changes in cervical spine, but no significant foraminal stenosis identified. 3. Subtle disc herniations C4-C5 and C5-C6 levels seen to better advantage on recent MR from 31 December 2008. Procedure Note Drew Mckeon MD - 02/24/2009 Neck pain Cervical Spine CT without contrast Clinical indications: neck pain and prior C6-C7 anterior discectomy and fusion Technique: Multiple contiguous axial sections were taken through the cervical spine followed by sagittal and coronal reformations. Comparison is made to prior cervical spine MR study from 31 December 2008 and prior plain film radiographs from 10 December 2008. Findings: There is a radiopaque anterior cortical screw-plate fixation device in good position and consistent with prior discectomy and fusion at C6-C7 level. There is interbody bone graft across the C6-C7 disc space level with incomplete fusion maturation currently. Patient's head is held in slight flexion. There is no obvious abnormality of anatomic alignment on the sagittal reformations. On the coronal reformations, TMJ is unremarkable bilaterally. The lateral masses of C1 align normally with C2 and occipital condyle appears normal. The other lateral masses also demonstrate normal alignment on the coronal reformations. On the axial images, no lucent fracture line is identified. There is a right lingual tonsil calcification present. On transaxial imaging, at the C2-C3 level, no focal herniation or foraminal stenosis is present. At the C3-C4 level, no focal herniation is present. There does not appear to be any significant foraminal stenosis at this level.There is a mild component of foraminal narrowing at that level, which may relate to some degree of early uncovertebral spurring. At the C4-C5 level, there appears be a small right paracentral herniation present. There does not appear to be significant degree of foraminal stenosis at this level. At the C5-C6 level, the paracentral disc herniation seen on recent MR is less well discerned, but present at the C5-C6 level probably central and slightly left-sided. At this level, there is no significant foraminal stenosis. At the C6-C7 level, there has been prior discectomy and fusion, but no significant foraminal stenosis is identified. On soft tissue windows, subcentimeter lymph nodes are seen along levels IB in submandibular triangle level and level II along jugular chain, but these do not meet size criteria for enlargement with many of them demonstrating fatty chano and are indicative of benign lymph nodes, and there are similar benign-appearing lymph nodes in the parotid gland bilaterally, right more than left. On coronal reformations, TMJ appears normal. Impression: 1. Prior C6-C7 anterior discectomy and fusion with no evidence of hardware failure with incomplete fusion maturation across disc space level. 2. Early degenerative changes in cervical spine, but no significant foraminal stenosis identified. 3. Subtle disc herniations C4-C5 and C5-C6 levels seen to better advantage on recent MR from 31 December 2008. Royer Loza PA-C IMG CT ORDERABLES documented in this encounter Visit Diagnoses Not on filedocumented in this encounter
--- OUTSIDE RECORDS SUMMARY | 2024-08-20 16:09 | XMS_ITS | Encounter Summary ---
Author Organization [facility] Address [address] [place] [address] Care Team Providers Care Booster Pump Operator Name Role Phone Arnaud Gutierrez MD Primary Care Provider [phone] Encounter Details Date Type Department Care Team (Late st Contact Info) Description 11/02/2005 Results Only [facility] - [facility] [address] [place] [address] Aditya Tarango MD [address] [id number] Social History Tobacco Use Types Packs/Day Years Used Date Smoking Tobacco: Never Assessed Sex and Gender Information Value Date Recorded Sex Assigned at Not on file Gender Identity Not on file Sexual Orientation Not on file documented as of this encounter Plan of Treatment Upcoming Encounters Date Type Department Care Team (Late st Contact Info) Description 09/19/2024 14:00 EST Initial consult [facility] Interventional Pain [address] [place] [address] Brigitte Camilo PA-C [address] [facility] [address] [place] [address] documented as of this encounter Procedures Procedure Name Priority Date/Time Associated Diagnosis Comments CYTOPATHOLOGY Routine 11/02/2005 0:00 EST documented in this encounter Results * CYTOPATHOLOGY (11/02/2005 0:00 EST) Pathology Report: CYTOPATHOLOGY REPORT Reports generated via electronic interface contain original data; however they are lacking the format of the original report. Caution should be taken when reading/interpreti ng unformatted reports. Name: ? CHALINO CHIU ? Accession #: ? [id number] : ? 1985 (Age: 20) ??F ?Collect Date: ? 11/02/2005 Location: ? [facility] ? Receive Date: ? 11/04/2005 Provider: ?ADITYA TARANGO MD Copy to: ? Specimen/Source: ?ThinPrep Pap Test, Vagina, processed on [employer] ThinPrep Imaging System, with manual evaluation Last Menstrual Period: ? 09/29/05 Other: ? HPVA - HPV testing requested if ASC-US on the current ThinPrep Pap test. ? SPECIMEN ADEQUACY ? Satisfactory for Evaluation - transformation zone component present GENERAL CATEGORIZATION ? Epithelial Cell Abnormality INTERPRETATION ? Squamous Cell Abnormality - Low grade squamous intraepithelial lesion (LSIL). EDUCATIONAL NOTES/RECOMMENDATI ONS ? [facility] recommends following the 2001 Consensus Guidelines for the Management of Women with Cervical Cytological Abnormalities (BRIANDA,2002;287:212 0-9). Management algorithms have been distributed by [facility] and are available online at www.ASCCP.org. ? Document reviewed and electronically signed by: ? ALISTAIR ZAIDI MD ? Report Date: ??11/08/2005 17:27 End of Report [facility] 11/02/2005 11/04/2005 Aditya Tarango MD PATHOLOGY ORDERABLES Performing Organization Address City/State/[facility] Co de Phone Number [facility] [address] [place] [address] documented in this encounter Visit Diagnoses Not on filedocumented in this encounter Care Teams Booster Pump Operator Relationship Specialty Start Date End Date Arnaud Gutierrez MD [address] [place] [address] PCP - General 03/20/09 02/07/11 documented as of this encounter
--- OUTSIDE RECORDS SUMMARY | 2024-08-20 16:09 | XMS_ITS | Encounter Summary ---
Author Organization [facility] Address [address] [place] [address] Care Team Providers Care Grader Tender Name Role Phone Arnaud Gutierrez MD Primary Care Provider [phone] Encounter Details Date Type Department Care Team (Late st Contact Info) Description 04/11/[address] [facility] - [place] [facility] [address] [place] [address] Unknown, Provider, Social History Tobacco Use Types [...] consult [facility] Interventional Pain [address] [place] [address] Brigitte Camilo PA-C [address] [facility] [address] [place] [address] documented as of this encounter Procedures Procedure Name Priority Date/Time Associated Diagnosis Comments FOLATE Routine 04/11/2006 13:12 EDT VITAMIN B12 Routine 04/11/2006 13:12 EDT documented in this encounter Results * FOLATE (04/11/2006 13:12 EDT) Folate 15.3 ng/mL [facility] Comment: Deficient: ??Less than 3.4 ng/mL Indeterminate: ??3.4-5.4 ng/mL Normal: ??Greater than 5.4 ng/mL 04/11/2006 13:1 2 EDT 04/11/2006 21:56 EDT Provider Unknown CHEMISTRY & BLOOD GA S ORDERABLES Performing Organization Address [facility] de Phone Number [facility] [address] [place] [address] * VITAMIN B12 (04/11/2006 13:12 EDT) Vitamin B-12 349 250 - 1100 pg/ml [facility] 04/11/2006 13:1 2 EDT 04/11/2006 21:56 EDT Provider Unknown CHEMISTRY & BLOOD GA S ORDERABLES Performing Organization Address City/[facility] de Phone Number [facility] [address] documented in this encounter Visit Diagnoses Not on filedocumented in this encounter Care Teams Grader Tender Relationship Specialty Start Date End Date Arnaud Gutierrez MD [address] [place] [address] PCP - General 03/20/09 02/07/11 documented as of this encounter
--- OUTSIDE RECORDS SUMMARY | 2024-08-20 16:09 | XMS_ITS | Encounter Summary ---
Author Organization [facility] Address [address] [place] [address] Care Team Providers Care Piano Sounding Board Matcher Name Role Phone Arnaud Gutierrez MD Primary Care Provider [phone] Encounter Details Date Type Department Care Team (Late st Contact Info) Description 12/09/2005 Results Only [facility] - Maple conversion [address] [place] [address] [facility] [address] [place], [place] [id number] Social History Tobacco Use Types Packs/Day Years Used Date Smoking Tobacco: Never Assessed Sex and Gender Information Value Date Recorded Sex Assigned at Not on file Gender Identity Not on file Sexual Orientation Not on file documented as of this encounter Plan of Treatment Upcoming Encounters Date Type Department Care Team (Late st Contact Info) Description 09/19/2024 14:00 EST Initial consult [facility] Interventional Pain [address] [place] [address] Brigitte Camilo PA-C 62 [facility] [address] [place] [address] documented as of this encounter Procedures Procedure Name Priority Date/Time Associated Diagnosis Comments SURGICAL PATHOLOGY Routine 12/09/2005 0:00 EST documented in this encounter Results * SURGICAL PATHOLOGY (12/09/2005 0:00 EST) Pathology Report: SURGICAL PATHOLOGY REPORT Reports generated via electronic interface contain original data; however they are lacking the format of the original report. Caution should be taken when reading/interpreti ng unformatted reports. Name: ? CHALINO CHIU ? Accession #: ? [id number] ? : ? 1985 (Age: 20) ??F ? Collect Date: ? 12/09/2005 ? Location: ? WC ? Receive Date: ? 12/09/2005 ? Provider: RUDDY KAUR MD Copy to: ADITYA TARANGO MD ? Final Pathologic Diagnosis: A. ?Endocervix, curettage ([facility] [id number]): 1. ?Benign endocervical tissue. ??See comment. 2. ?No squamous intraepithelial lesion identified. B. ?Cervix, 6 o'clock, biopsy ([facility] [id number]): 1. ?Squamous mucosa with reactive features including parakeratosis. ??See comment. 2. ?No squamous intraepithelial lesion identified. Comment: ? The referring PAP test on this patient ([id number]) which was interpreted at this institution has been reviewed and the diagnosis of low grade squamous intraepithelial lesion confirmed. ??The low grade dysplastic cells seen on the referring PAP test are not identified on the current specimen, even upon review of deeper levels. ??(Dr. Tate)/[facility] Document reviewed and electronically signed by: Marcy Tate MD Report ??Date: 12/12/2005 14:57 By the signature above, the attending physician certifies that he/she has personally conducted a gross and/or microscopic examination of the described specimens and rendered or confirmed the above diagnosis. Specimen(s) Received: ? [facility] [id number] (6) Clinical History: ? Abnl PAP Gross Description: ? Six slides are received for review from [facility], one each labelled [id number], [id number] A dpr 1-3, [id number] A dpr 4-6, [id number] B, [id number] B dpr 1-3, [id number] B dpr 4-6. ? End of Report [facility] BRAD[facility] 12/09/2005 12/09/2005 12: 31 EST Ruddy Kaur MD PATHOLOGY ORDERABLES Performing Organization Address City/State/[facility] Co de Phone Number [facility] [address] [place] [address] documented in this encounter Visit Diagnoses Not on filedocumented in this encounter Care Teams Piano Sounding Board Matcher Relationship Specialty Start Date End Date Arnaud Gutierrez MD [address] [place] [id number] PCP - General 03/20/09 02/07/11 documented as of this encounter
--- OUTSIDE RECORDS SUMMARY | 2024-08-20 16:09 | XMS_ITS | Encounter Summary ---
Author Organization [facility] Address [address] [place] [address] Care Team Providers Care Dye Machine Operator Name Role Phone Arnaud Gutierrez MD Primary Care Provider [phone] Encounter Details Date Type Department Care Team (Late st Contact Info) Description 12/12/2008 Before PRISM Converted Visit (Maple) [facility] - Maple conversion [address] [place] [address] Royer Loza PA-C [address] [place] [address] [place] [address] Social History Tobacco Use Types Packs/Day Years Used Date Smoking Tobacco: Never Assessed Sex and Gender Information Value Date Recorded Sex Assigned at Not on file Gender Identity Not on file Sexual Orientation Not on file documented as of this encounter Progress Notes * Royer Loza PA - 12/01/2009 2250 EST [facility] (Sp[facility]) [facility] [address] [place] [address] PROGRESS/FOLLOWUP NOTE - 12/12/2008 Primary Care Provider: Arnaud Gutierrez MD Referred by: Arnaud Gutierrez MD Attending: ALBA Cornelius INTERVAL NOTE: She is a 23-year-old female with low back discomfort associated with left lower extremity symptoms.On our last visit I had ordered an MRI of the C Spine but unfortunately I was not aware that Coretta is uninsured and at this point I felt that the MRIwas more of a way to completely rule out the C spine as a source of her discomfort. Her physical examination does not clearly support that although I think it would be helpful. I tried to phone follow-up with Coretta today. There was no answer on her phone but Iwanted to make it clear that this exam was not emergent and not absolutely necessary and I think the majority of her discomfort is likely muscular. She has no signs of nerve root impingement on her MRI of her lumbar spine that would account for the symptoms she had and that I would recommendthat she: PLAN 1. Participate in daily activities as tolerated without limitation. 2. Begin physical therapy with lumbar and abdominal muscle strengthening, core stabilization. 3. Continue her current pain management regime. 4. Participate in daily activities as tolerated without fear of damaging herself. She may have episodes of increased pain but she will not damage herself, nothing on her films has showed me any signsthat she is at risk for paralysis or any danger for jail nerve injury. 5. If she should have any change in her symptoms, she is certainly welcome to follow-up as needed. Thank you for allowing the [facility] to participate in the care of your patient. I look forward to working with you in the near future. I am sorry for any confusion this may havecaused. Signed by ALBA Cornelius 01/06/2009 16:16 ALBA Cornelius - ALBA Cornelius - [facility] Job ID: [id number] Doc ID: [id number] cc: MD Claudia Barrett, [place] [address]* documented in this encounter Plan of Treatment Upcoming Encounters Date Type Department Care Team (Late st Contact Info) Description 09/19/2024 14:00 EST Initial consult [facility] Interventional Pain [address] [place] [address] Brigitte Camilo PA-C 62 [facility] [address] [place] [address] documented as of this encounter Visit Diagnoses Not on filedocumented in this encounter Care Teams Dye Machine Operator Relationship Specialty Start Date End Date Arnaud Gutierrez MD [address] [place] [address] PCP - General 03/20/09 02/07/11 documented as of this encounter
--- OUTSIDE RECORDS SUMMARY | 2024-08-20 16:09 | XMS_ITS | Encounter Summary ---
Author Organization [facility] Address [address] [place] [address] Care Team Providers Care Foundry Engineer Name Role Phone Unavailable Primary Care Provider Unavailabl e Encounter Details Date Type Department Care Team (Late st Contact Info) Description 12/31/2008 18:39 EST Hospital Encounter [facility] [address] [place] [address] Royer Loza PA-C [address] [place] [address] Discharge Disposition: Auto Discharge Social [...] [facility] Interventional Pain [address] [place] [address] Brigitte Camilo PA-C 62 [facility] [address] [place] [address] documented as of this encounter Visit Diagnoses Not on filedocumented in this encounter
--- OUTSIDE RECORDS SUMMARY | 2024-08-20 16:09 | XMS_ITS | Encounter Summary ---
Author Organization [facility] Address [address] [place] [address] Care Team Providers Care Workforce Management Analyst Name Role Phone Felicia Miranda MD Primary Care Provider [phone] Encounter Details Date Type Department Care Team (Late Contact Info) Description 10/18/2007 Results Only [facility] - Maple conversion [address] [place] [address] Felicia Miranda MD [address] [place], [place] [id number] Social History Tobacco Use Types Packs/Day Years Used Date Smoking Tobacco: Never Assessed Sex and Gender Information Value Date Recorded Sex Assigned at Not on file Gender Identity Not on file Sexual Orientation Not on file documented as of this encounter Plan of Treatment Upcoming Encounters Date Type Department Care Team (Late Contact Info) Description 09/19/2024 14:00 EST Initial consult [facility] Interventional Pain [address] [place] [address] Brigitte Camilo PA-C 62 [facility] [address] [place] [address] documented as of this encounter Procedures Procedure Name Priority Date/Time Associated Diagnosis Comments CYTOPATHOLOGY Routine 10/18/2007 0:00 EST documented in this encounter Results * CYTOPATHOLOGY (10/18/2007 0:00 EST) Pathology Report: CYTOPATHOLOGY REPORT Reports generated via electronic interface contain original data; however they are lacking the format of the original report. Caution should be taken when reading/interpreti ng unformatted reports. Name: ? CHALINO CHIU ? Accession #: ? [id number] : ? 1985 (Age: 22) ??F ?Collect Date: ? 10/18/2007 Location: ? [facility] ? Receive Date: ? 10/19/2007 Provider: ?FELICIA MIRANDA MD Copy to: ? Specimen/Source: ?ThinPrep Pap Test, Vagina, processed on [employer] ThinPrep Imaging System, with manual evaluation Last Menstrual Period: ? 09/29/07 Other: ? HPVA - HPV testing requested if ASC-US on the current ThinPrep Pap test. ? SPECIMEN ADEQUACY ? Satisfactory for Evaluation - transformation zone component present GENERAL CATEGORIZATION ? Negative for Intraepithelial Lesion or Malignancy INTERPRETATION ? Reactive cellular changes associated with inflammation present (includes repair). ? Document reviewed and electronically signed by: ? EDGAR RODRÍGUEZ MD [facility] ? Report Date: ??10/29/2007 17:34 End of Report [facility] 10/18/2007 10/19/2007 Felicia Miranda MD PATHOLOGY ORDERABLES [facility] [address] [place] [address] documented in this encounter Visit Diagnoses Not on filedocumented in this encounter Care Teams Workforce Management Analyst Relationship Specialty Start Date End Date Felicia Miranda MD [address] [place] [address] PCP - General 03/20/09 02/07/11 documented as of this encounter
--- OUTSIDE RECORDS SUMMARY | 2024-08-20 16:09 | XMS_ITS | Encounter Summary ---
Author Organization [facility] Address [address] [place] [address] Care Team Providers Care Outreach Consultant Name Role Phone Arnaud Gutierrez MD Primary Care Provider [phone] Sharif Rizvi MD Primary Care Provider [phone] Encounter Details Date Type Department Care Team (Late st Contact Info) Description 12/31/2008 Before PRISM Converted Visit (Maple) [facility] - [address] [address] Royer Loza PA-C [address] [place] [address] [place] [address] Social History Tobacco Use Types Packs/Day Years Used Date Smoking Tobacco: Never Assessed Sex and Gender Information Value Date Recorded Sex Assigned at Not on file Gender Identity Not on file Sexual Orientation Not on file documented as of this encounter Progress Notes * Royer Loza PA - 12/01/2009 2228 EST [facility] [place] [facility] (SpINE) Orthopaedics and Rehabilitation [address] [place] [address] PROGRESS/FOLLOWUP NOTE - 01/26/2009 PROBLEM The patient is a 23-year-old female last seen in our office on January 06, 2009. SUBJECTIVE Since our last visit she has undergone a CT scan of the cervical spine and presents today for review of the scan. Currently her symptoms are unchanged. She still has significant neck discomfort. She also has an interval increase in her left lowerextremity discomfort particularly the lateral aspect of her calf. She describes it as a constant pain, rated at an 8/10, particularly over the past two weeks. She has minimal low back at this point and her leg is quite uncomfortable. At this point she still would like to focus on the cervical spine, but just wanted me to know that her leg symptoms areincreasing. OBJECTIVE RADIOGRAPHS CT scan of the cervical spine reveals an incomplete fusion at C6-7. The patients previous lumbar MRI also revealed broad based disk bulge at L4-5 and question of the compression of the traversing L5 nerve root on the left. 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 No instabilityon flexion/extension at this point. The patient is not eager to move forward with the surgical inter vention and would like to consider injection therapies first. Regarding the lumbar spine, herMRI is not clearly concordant with the symptoms or subjective complaints; although it is possible she is suffering from a mild L5 radiculopathy in the left lower extremity. At this point she would like to move forward with mention of her cervical spine before performing any lumbar interventions. I made it clear to her today that she has a limited number of injections she can take in a year and that at first we would like to move forward with diagnostic and therapeutic injections of the cervical spine and she agreed. I then offered her neuroleptics such as Neurontin 200 mg p.o. t.i.d. and we will titrate to effect. She agreed. PLAN 1. Facet injections at C7-T1 bilaterally. 2. Activities as tolerated. 3. Neurontin 200 mg p.o. t.i.d. If after three days her symptoms have not changed or improve we will increase it to 300 mg p.o. t.i.d. I have asked her then to phone follow up with us by next Monday if her symptoms persist. We could titrate up one more time to 400 mg t.i.d., but if after that itis not helpful, likely the Neurontin is not helpful and we will wean off and consider a lumbar epidural steroid injection based on the results that she gets from facet injections. 4. If she does not have satisfactory relief with the facet injection I will call for a surgical consult to discuss any surgical intervention that may be helpful in alleviating her pain. Thank you for allowing the [facility] to participate in the care of your patient. I look forward to working with you in the near future. Sincerely, Signed by ALBA Cornelius 01/30/2009 10:03 ALBA Cornelius - ALBA Cornelius - [facility] Job ID: [id number] Doc ID: [id number] cc: Arnaud Gutierrez MD documented in this encounter Plan of Treatment Upcoming Encounters Date Type Department Care Team (Late st Contact Info) Description 09/19/2024 14:00 EST Initial consult [facility] Interventional Pain [address] [place] [address] Brigitte Camilo PA-C 62 [facility] [address] [place] [address] documented as of this encounter Procedures Procedure Name Priority Date/Time Associated Diagnosis Comments MR CERVICAL SPINE W/WO CONTRAST 12/31/2008 20:18 EST documented in this encounter Results * MR CERVICAL SPINE W/WO CONTRAST (12/31/2008 20:18 EST) Anatomical Region Laterality Modality Other 12/31/2008 20:1 8 EST Narrative 02/24/2009 3:10 EDT Neck pain MRI CERVICAL SPINE WITH AND WITHOUT CONTRAST December 31, 2008 8:18:00 PM Signs and Symptoms: Neck pain Comparison: Cervical spine films on 12/10/2008 Technique: Axial and sagittal T1, T2 and T1 postcontrast fat-saturated MR images of the cervical spine and sagittal oblique T2-weighted MR images of the cervical spine were obtained. Findings: The craniocervical and atlantoaxial alignment are anatomic. No rigo- or retrolisthesis is identified. There has been prior anterior discectomy and spinal fusion with metallic hardware C6-C7. Cervicovertebral body heights are well maintained. Marrow signal is unremarkable. C2-C3: There is no disc herniation or spinal stenosis. C3-C4: There is bilateral neuroforaminal narrowing to uncinate spurring. C4-C5: There is a small left paracentral disc herniation without cord impingement. There is mild left neural foraminal narrowing due to uncinate spurring. C5-C6: There is a left paracentral disc herniation which produces mild cord flattening. The posterior CSF space is preserved. C6-C7: There is no high-grade central or neuroforaminal stenosis. C7-T1: There is no disc herniation or high-grade spinal stenosis. The cervical cord is normal in caliber and signal. No abnormal enhancement is seen following contrast administration. Impression: 1. Status post C6-C7 anterior discectomy and spinal fusion. 2. Neuroforaminal narrowing, bilaterally at C3-C4, on the left at C4-C5 secondary to uncinate spurring. 3. Small left paracentral disc herniations at C4-C5 and C5-C6. Procedure Note Kiki Sesay MD - 02/24/2009 Neck pain MRI CERVICAL SPINE WITH AND WITHOUT CONTRAST December 31, 2008 8:18:00 PM Signs and Symptoms: Neck pain Comparison: Cervical spine films on 12/10/2008 Technique: Axial and sagittal T1, T2 and T1 postcontrast fat-saturated MR images of the cervical spine and sagittal oblique T2-weighted MR images of the cervical spine were obtained. Findings: The craniocervical and atlantoaxial alignment are anatomic. No rigo- or retrolisthesis is identified. There has been prior anterior discectomy and spinal fusion with metallic hardware C6-C7. Cervicovertebral body heights are well maintained. Marrow signal is unremarkable. C2-C3: There is no disc herniation or spinal stenosis. C3-C4: There is bilateral neuroforaminal narrowing to uncinate spurring. C4-C5: There is a small left paracentral disc herniation without cord impingement. There is mild left neural foraminal narrowing due to uncinate spurring. C5-C6: There is a left paracentral disc herniation which produces mild cord flattening. The posterior CSF space is preserved. C6-C7: There is no high-grade central or neuroforaminal stenosis. C7-T1: There is no disc herniation or high-grade spinal stenosis. The cervical cord is normal in caliber and signal. No abnormal enhancement is seen following contrast administration. Impression: 1. Status post C6-C7 anterior discectomy and spinal fusion. 2. Neuroforaminal narrowing, bilaterally at C3-C4, on the left at C4-C5 secondary to uncinate spurring. 3. Small left paracentral disc herniations at C4-C5 and C5-C6. Royer Loza PA-C IMG MRI ORDERABLES documented in this encounter Visit Diagnoses Not on filedocumented in this encounter Care Teams Outreach Consultant Relationship Specialty Start Date End Date Arnaud Gutierrez MD [address] [place] [address] PCP - General 03/20/09 02/07/11 Sharif Rizvi MD [address] [place] [address] PCP - General 02/08/11 documented as of this encounter
--- OUTSIDE RECORDS SUMMARY | 2024-08-20 16:09 | XMS_ITS | Encounter Summary ---
Author Organization [facility] Address [address] [place] [address] Care Team Providers Care Smeller Name Role Phone Unavailable Primary Care Provider Unavailabl e Encounter Details Date Type Department Care Team (Late st Contact Info) Description 01/26/2009 14:38 EDT Hospital Encounter [facility] - Maple conversion [address] [place] [address] Royer Loza PA-C [address] [place] [address] Discharge Disposition: Auto Discharge Social [...] consult [facility] Interventional Pain [address] [place] [address] Brigitte Camilo PA-C 62 [facility] [address] [place] [address] documented as of this encounter Visit Diagnoses Not on filedocumented in this encounter
--- OUTSIDE RECORDS SUMMARY | 2024-08-20 16:09 | XMS_ITS | Encounter Summary ---
Author Organization [facility] Address [address] [place] [address] Care Team Providers Care Steward/Stewardess Lounge Name Role Phone Unavailable Primary Care Provider Unavailabl e Encounter Details Date Type Department Care Team (Late st Contact Info) Description 01/06/2009 11:15 EDT - 01/06/2009 11:59 EDT Hospital Encounter [facility] - Maple conversion [address] [place] [address] Royer Loza PA-C [address] [place] [address] Discharge Disposition: Auto Discharge Social [...] Info) Description 09/19/2024 14:00 EST Initial consult [facility] Interventional Pain [address] [place] [address] Brigitte Camilo PA-C 62 [facility] [address] [place] [address] documented as of this encounter Visit Diagnoses Not on filedocumented in this encounter
--- OUTSIDE RECORDS SUMMARY | 2024-08-20 16:09 | XMS_ITS | Encounter Summary ---
Author Organization [facility] Address [address] [place] [address] Care Team Providers Care Production Assembly Supervisor Name Role Phone Arnaud Gutierrez MD Primary Care Provider Encounter Details Date Type Department Care Team (Late st Contact Info) Description 01/06/2009 Before PRISM Converted Visit (Maple) [facility] - Maple conversion [address] [place], [place] [id number] Royer Loza PA-C [address] [place] [address] [place] [address] Social History Tobacco Use Types Packs/Day Years Used Date Smoking Tobacco: Never Assessed Sex and Gender Information Value Date Recorded Sex Assigned at Not on file Gender Identity Not on file Sexual Orientation Not on file documented as of this encounter Progress Notes * Royer Loza PA - 12/02/2009 0850 EST [facility] [address] [place] [address] PROGRESS/FOLLOWUP NOTE - 01/06/2009 Primary Care Provider: Arnaud Gutierrez MD Referred by: Arnaud Gutierrez MD Attending: ALBA Mosher SUBJECTIVE Claudia Craft is a 24-year-old female last seen in our office on October 09, 2008. At that point she had ???low back pain?? . At the time, it was my impression that her low back pain was the pain focused around the belt level. The patient statesher impression of low back pain was between her shoulder blades. Sorry for any confusion I have caused. She felt that she has very little ???low back pain?? , and the majority of her pain is focused between the shoulder blades. Since our last visit she hashad an interval increase in her neck discomfort as well. Overall she states her pain is getting worse. Her pain level is an 8 at this point, at worst an 8, at best a 6 on a scale of 1-10. It is present most days and is constant. She finds Vicodin helpful, but does not completely take away her discomfort. Moving, stretching, and driving exacerbate her discomfort. OBJECTIVE RADIOGRAPHS MRI of the C-spine dated December 31, 2008: T2-weighted sagittal images reveal previous surgical changes at C6-7. Thereappears to be some increased signal at the fusion site that would be the C6-7 disk. There are also signs of disk degeneration at C5-6 with a posterior disk bulge and mild disk degeneration at C7-T1. No obvious cord signal changes. Axial images reveal aright central bulge at C5-6 withmild bilateral foraminal narrowing. This appears to also efface the thecal sac. There is moderate distortion at C6-7, obviously because of the screws with effacement of the cord, it is not clear thatthere is clear cordcompression. At C7-T1 there is a broad based central disk bulge with left greater than right neural foraminal narrowing. At C4-5, again a broad based disk bulge with left greater than right neural foraminal narrowing. At C3-4 there is bilateral neural foraminal narrowing as a result of broad based disk bulge and osteophyte complex. ASSESSMENT This is a 24-year-old female with neck pain post C6-7 fusion with bilateral shoulder pain and midscapular discomfort. I reviewed the films clearly with the patient today and discussed the findings. Ifelt that her fusion may not be complete and had suggested possibly undergoing a CT/myelogram versus a CT scan with injection therapy, i.e. facet injection versus epidural. She requested that I review the case with a surgeon before proceeding. I had an opportunity to speak with Dr. Melgar and reviewed the case with him and the films. He feltthat a CT scan of the C-spine was reasonable to rule out a pseudoarthrosis. He then looked at the radiographs we had obtained previously and felt there likely was a pseudoarthrosis at C6-7. He also suggested possible facet injections in the meantime at C7-T1 as both therapeutic and diagnostic. If the CT scan was negative, he suggested possibly trying diskogram at C7 and T1 to determine if that was the pain generator. The plan at this point will be: PLAN 1. CT scan of the C-spine for evaluation of pseudoarthrosis. 2. If positive, we will consider surgical consult. 3. Consider facet injections at C7-T1 for symptomatic relief. 4. If the CT scan is negative for pseudoarthrosis, we will consider a diskogram at C7 and T1 if shechooses to move forward with that. 5. 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 At this pointI would suggest activity as tolerated without limitation although if she eventually finds no reliefwith injection therapy and is not considering surgical intervention, I would suggest an Interdisciplinary Evaluation for possible induction in the Level 3 or Level4 program. 6. I will follow up with her five days post CT scan to review the results. Thank you for allowing the [facility] to participate in the care of your patient. I look forward to working with you in the near future. Signed by ALBA Cornelius 01/15/2009 11:10 ALBA Cornelius - ALBA Cornelius - SJD Job ID: [id number] Doc ID: [id number] cc: Arnaud Gutierrez MD Ms. Claudia Craft, [address] [place] [id number]* documented in this encounter Plan of Treatment Upcoming Encounters Date Type Department Care Team (Late st Contact Info) Description 09/19/2024 14:00 EST Initial consult [facility] [address] [facility] [place] [address] Brigitte Camilo PA-C [address] [place] [phone] documented as of this encounter Visit Diagnoses Not on filedocumented in this encounter Care Teams Production Assembly Supervisor Relationship Specialty Start Date End Date Arnaud Gutierrez MD [address] [place] [id number] PCP - General 03/20/09 02/07/11 documented as of this encounter
--- OUTSIDE RECORDS SUMMARY | 2024-08-20 16:09 | XMS_ITS | Encounter Summary ---
Author Organization [facility] Address [address] [place] [address] Care Team Providers Care Cranberry Farm Supervisor Name Role Phone Unavailable Primary Care Provider Unavailabl e Encounter Details Date Type Department Care Team (Late st Contact Info) Description 12/10/2008 14:11 EST Hospital Encounter [facility] - Maple conversion [address] [place] [address] Royer Loza PA-C [address] [facility] [place] [address] Discharge Disposition: Auto Discharge Social [...] [facility] [address] [place] [address] Brigitte Camilo PA-C [address] [facility] [address] [place] [address] documented as of this encounter Procedures Procedure Name Priority Date/Time Associated Diagnosis Comments L SPINE 2-3 VIEWS 12/10/2008 15: 32 EST CERVICAL SPINE 4 OR MORE VIEWS 12/10/2008 15:31 EST documented in this encounter Results * L SPINE 2-3 VIEWS (12/10/2008 15:32 EST) Anatomical Region Laterality Modality Other 12/10/2008 15:3 2 EST Narrative 03/16/2009 11:00 EDT Low back pain, neck pain L SPINE 2-3 VIEWS AND 4 VIEWS OF THE CERVICAL SPINE Dec 10, 2008 3:32:00 PM Signs and Symptoms: ??Low back pain, neck pain. Comparisons: None. Findings: Four views of the cervical spine were obtained and show postoperative changes consistent with prior C6-C7 discectomy and anterior fusion. The hardware is well seated with no signs of failure or loosening. Intervertebral bone graft material appears partially incorporated. Normal alignment is maintained and the prevertebral soft tissues are normal in appearance. No other bony abnormalities are noted. Two views of the lumbar spine were obtained and demonstrate preservation of normal vertebral body heights and disc spaces. There is no evidence of spondylolisthesis. Impression: Postoperative changes from prior C6-C7 discectomy and anterior fusion. No other abnormality is identified in the C-spine or lumbar spine. I have personally reviewed the images and the above interpretation and agree with the findings. Procedure Note Henna Daugherty MD / Kathy Taylor MD - 03/16/2009 Low back pain, neck pain L SPINE 2-3 VIEWS AND 4 VIEWS OF THE CERVICAL SPINE Dec 10, 2008 3:32:00 PM Signs and Symptoms: Low back pain, neck pain. Comparisons: None. Findings: Four views of the cervical spine were obtained and show postoperative changes consistent with prior C6-C7 discectomy and anterior fusion. The hardware is well seated with no signs of failure or loosening. Intervertebral bone graft material appears partially incorporated. Normal alignment is maintained and the prevertebral soft tissues are normal in appearance. No other bony abnormalities are noted. Two views of the lumbar spine were obtained and demonstrate preservation of normal vertebral body heights and disc spaces. There is no evidence of spondylolisthesis. Impression: Postoperative changes from prior C6-C7 discectomy and anterior fusion. No other abnormality is identified in the C-spine or lumbar spine. I have personally reviewed the images and the above interpretation and agree with the findings. Royer Loza PA-C [facility] NG ORDERABLES * CERVICAL SPINE 4 OR MORE VIEWS (12/10/2008 15:31 EST) Anatomical Region Laterality Modality Other 12/10/2008 15:3 1 EST Narrative 03/16/2009 11:00 EDT Low back pain, neck pain L SPINE 2-3 VIEWS AND 4 VIEWS OF THE CERVICAL SPINE Dec 10, 2008 3:32:00 PM Signs and Symptoms: ??Low back pain, neck pain. Comparisons: None. Findings: Four views of the cervical spine were obtained and show postoperative changes consistent with prior C6-C7 discectomy and anterior fusion. The hardware is well seated with no signs of failure or loosening. Intervertebral bone graft material appears partially incorporated. Normal alignment is maintained and the prevertebral soft tissues are normal in appearance. No other bony abnormalities are noted. Two views of the lumbar spine were obtained and demonstrate preservation of normal vertebral body heights and disc spaces. There is no evidence of spondylolisthesis. Impression: Postoperative changes from prior C6-C7 discectomy and anterior fusion. No other abnormality is identified in the C-spine or lumbar spine. I have personally reviewed the images and the above interpretation and agree with the findings. Procedure Note Henna Daugherty MD / Brandon, Kathy Talley MD - 03/16/2009 Low back pain, neck pain L SPINE 2-3 VIEWS AND 4 VIEWS OF THE CERVICAL SPINE Dec 10, 2008 3:32:00 PM Signs and Symptoms: Low back pain, neck pain. Comparisons: None. Findings: Four views of the cervical spine were obtained and show postoperative changes consistent with prior C6-C7 discectomy and anterior fusion. The hardware is well seated with no signs of failure or loosening. Intervertebral bone graft material appears partially incorporated. Normal alignment is maintained and the prevertebral soft tissues are normal in appearance. No other bony abnormalities are noted. Two views of the lumbar spine were obtained and demonstrate preservation of normal vertebral body heights and disc spaces. There is no evidence of spondylolisthesis. Impression: Postoperative changes from prior C6-C7 discectomy and anterior fusion. No other abnormality is identified in the C-spine or lumbar spine. I have personally reviewed the images and the above interpretation and agree with the findings. Royer [facility] NG ORDERABLES documented in this encounter Visit Diagnoses Not on filedocumented in this encounter
--- OUTSIDE RECORDS SUMMARY | 2024-08-20 16:09 | XMS_ITS | Encounter Summary ---
Author Organization [facility] Address [address] [place] [address] Care Team Providers Care Tobacco Warehouse Agent Name Role Phone Felicia Gutierrez MD Primary Care Provider [phone] Encounter Details Date Type Department Care Team (Late Contact Info) Description 10/17/2008 Before PRISM Converted Visit (Maple) [facility] - Maple conversion [address] [place], [place] [address] Felicia Gutierrez MD [address] [place], [place] [id number] Social History Tobacco Use Types Packs/Day Years Used Date Smoking Tobacco: Never Assessed Sex and Gender Information Value Date Recorded Sex Assigned at Not on file Gender Identity Not on file Sexual Orientation Not on file documented as of this encounter Plan of Treatment Upcoming Encounters Date Type Department Care Team (Late Contact Info) Description 09/19/2024 14:00 EST Initial consult [facility] Interventional Pain [address] [place] [address] Brigitte Camilo PA-C [address] [facility] [address] [place] [address] documented as of this encounter Procedures Procedure Name Priority Date/Time Associated Diagnosis Comments CYTOPATHOLOGY Routine 10/17/2008 0:00 EST documented in this encounter Results * CYTOPATHOLOGY (10/17/2008 0:00 EST) Pathology Report: CYTOPATHOLOGY REPORT ? Reports generated via electronic interface contain original data; ? however they are lacking the format of the original report. ? Caution should be taken when reading/interpreti ng unformatted reports. ? Name: ? CHALINO CHIU ? Accession #: ? [id number] ? : ? 1985 (Age: 23) ??F ?Collect Date: ? 10/17/2008 ? Location: ? [facility] ? Receive Date: ? 10/20/2008 ? Provider: ?FELICIA BISBEE MD ? Copy to: ? Specimen/Source: ?Pap Test, Cervix, ThinPrep Imaging System with manual ?? evaluation ? Last Menstrual Period: ? Other: ? HPVA - HPV testing requested if ASC-US on the current ThinPrep Pap test. ? SPECIMEN ADEQUACY ? Satisfactory for Evaluation ? - transformation zone component present ? GENERAL CATEGORIZATION ? Negative for Intraepithelial Lesion or Malignancy ? Document reviewed and electronically signed by: ? Tanya F. Colasacco, SCT(ASCP) ? Report Date: ??10/27/2008 14:12 ? End of Report ? [facility] 10/17/2008 10/20/2008 Felicia Gutierrez MD PATHOLOGY ORDERABLES Performing Organization Address [facility]/State/ZIP Co de Phone Number [facility] [address] [place] [address] documented in this encounter Visit Diagnoses Not on filedocumented in this encounter Care Teams Tobacco Warehouse Agent Relationship Specialty Start Date End Date Felicia Gutierrez MD [address] [place] [address] PCP - General 03/20/09 02/07/11 documented as of this encounter
--- OUTSIDE RECORDS SUMMARY | 2024-08-20 16:09 | XMS_ITS | Encounter Summary ---
Author Organization [facility] Address [address] [place] [address] Care Team Providers Care Principal Systems Architect Name Role Phone Unavailable Primary Care Provider Unavailabl e Encounter Details Date Type Department Care Team (Late st Contact Info) Description 12/09/2005 16:42 EST Hospital Encounter [facility] - Other [address] [place] [address] Billy Malcolm MD [address] [place] [id number] Discharge Disposition: Home or Self Care Social [...] [facility] Interventional Pain [address] [place] [address] Brigitte Camilo PA-C [address] [facility] [address] [place] [address] documented as of this encounter Procedures Procedure Name Priority Date/Time Associated Diagnosis Comments RHEUMATOID FACTOR Routine 07/01/2008 14: 31 EDT ANTI NUCLEAR AB (DAYLIN), IFA Routine 07/01/2008 14:31 EDT SPEP, INCLUDES QUANTITATION OF MONOCLONAL SPIKE Routine 07/01/2008 14:31 EDT VITAMIN B12 Routine 07/01/2008 14:31 EDT documented in this encounter Results * ANTI NUCLEAR ANTIBODY (07/01/2008 14:31 EDT) Anti Nuclear Ab <40 0 - 40 Dils [facility] 07/01/2008 14:3 1 EDT 07/02/2008 22:01 EDT Provider Unknown IMMUNOLOGY AND SEROL OGY ORDERABLES Performing Organization Address [facility] Phone Number [facility] [address] [place] [address] * RHEUMATOID FACTOR (07/01/2008 14:31 EDT) Pathologist [facility] Rheumatoid Factor <20 <20 IU/ml [facility] 07/01/2008 14:3 1 EDT 07/02/2008 22:01 EDT Provider Unknown CHEMISTRY & BLOOD GA S ORDERABLES Performing Organization Address [facility] Phone Number [facility] [address] [place] [address] * VITAMIN B12 (07/01/2008 14:31 EDT) Vitamin B-12 331 250 - 1100 pg/ml [facility] 07/01/2008 14:3 1 EDT 07/02/2008 22:01 EDT Provider Unknown CHEMISTRY & BLOOD GA S ORDERABLES Performing Organization Address [facility] Co de Phone Number [facility] [address] [place] [address] * ELECTROPHORESIS, SERUM (07/01/2008 14:31 EDT) Total Protein 7.0 6.5 - 8.3 g/dl [facility] Albumin, SPEP 54.1 47.6 - 61.9 % [facility] Alpha-1 % 3.0 1.4 - 4.6 % [facility] Alpha 2, SPEP 11.0 7.3 - 13.9 % [facility] Beta, SPEP 17.8 10.9 - 19.1 % [facility] Gamma, SPEP 14.1 9.5 - 24.8 % [facility] Comments, SPEP Slightly lipemic [facility] 07/01/2008 14:3 1 EDT 07/02/2008 22:01 EDT Provider Unknown CHEMISTRY & BLOOD GA S ORDERABLES Performing Organization Address City/State/[facility] Co de Phone Number [facility] [address] [place] [address] documented in this encounter Visit Diagnoses Not on filedocumented in this encounter
== END 2024-08-20 16:03 | disposition home or self-care (01) ==
LOC: NCHCN 16:02
PROVIDERS: PCP Family Medicine; Visit Provider Nurse Practitioner Family
DX: I10 Essential (primary) hypertension (principal)
CPT/HCPCS: 80053; 80061

== ENCOUNTER 2025-06-11 19:44 | Outpatient (REF) | payer MEDICARE, MEDICAID, SELFPAY ==
[2025-06-12 17:03] LABS: COMMENT (LAB VIEW ONLY) 215.61 mg/dL; Microalb ug/mg Crea 5.8 ug/mg Cr
== END 2025-06-11 19:45 | disposition home or self-care (01) ==
LOC: NCHCN 19:44
PROVIDERS: PCP Family Medicine; Visit Provider Nurse Practitioner Family
DX: E11.9 Type 2 diabetes mellitus without complications (principal); I10 Essential (primary) hypertension
CPT/HCPCS: 82043; 82570

== ENCOUNTER 2025-09-03 12:57 | Outpatient (REF) | payer MEDICARE, MEDICAID, SELFPAY ==
[2025-09-03 15:56] LABS: ALT 37 U/L (14-59); AST 20 U/L (15-37); Albumin 3.6 g/dL (3.4-5.0); Alkaline Phosphatase 54 U/L (46-116); Anion Gap 9.5 mmol/L (3-11); BUN 12 mg/dL (7-18); Bilirubin, Total 0.4 mg/dL (0.2-1.0); CO2 28.5 mmol/L (21.0-32.0); Calcium 9.0 mg/dL (8.5-10.1); Chloride 103 mmol/L (98-107); Cholesterol 131 mg/dL (<200); Glucose 190 mg/dL (74-106); HDL Cholesterol 43 mg/dL (>or=50); Potassium 3.7 mmol/L (3.5-5.1); Sodium 141 mmol/L (136-145); TSH 1.28 uIU/mL (0.36-3.74); Total Protein 7.1 g/dL (6.4-8.2)
[2025-09-03 16:03] LABS: Hemoglobin A1C 5.7 % (<5.7)
== END 2025-09-03 12:58 | disposition home or self-care (01) ==
LOC: NCHCN 12:57
PROVIDERS: PCP Family Medicine; Visit Provider Nurse Practitioner Family
DX: E66.9 Obesity, unspecified (principal); I10 Essential (primary) hypertension; R94.6 Abnormal results of thyroid function studies
CPT/HCPCS: 80053; 80061; 83036; 84443